=== PATIENT | male | born 1960 ===

== ENCOUNTER 2020-04-20 12:53 | Outpatient (REF) | payer OTHER, SELFPAY ==
--- NOTE | ~2020-04-20 | XR_ITS ---
EXAMINATION: XR SHOULDER, RIGHT CLINICAL INFORMATION: Shoulder pain. COMPARISON: None TECHNIQUE: AP external rotation, Grashey, scapular Y, and axillary views of the right shoulder. FINDINGS: No acute fracture or dislocation. Glenohumeral and acromioclavicular alignment is anatomic with normal joint space. No abnormal soft tissue calcifications. XR/XR shoulder RT min 2V IMPRESSION: No acute osseous abnormality.
--- NOTE | ~2020-04-20 | XR_ITS ---
EXAMINATION: XR HIP, RIGHT CLINICAL INFORMATION: Right hip pain. COMPARISON: 12/13/2013 TECHNIQUE: Two views of the right hip. FINDINGS: No acute fracture. Alignment is anatomic. Hip joint space is maintained. Small ossicle adjacent to the acetabulum. Visualized pelvis is intact. XR/XR hip RT min 2V IMPRESSION: No acute osseous abnormality.
[2020-04-20 13:48] LABS: MANUAL DIFF FLAG NO
[2020-04-20 13:58] LABS: Basophils Absolute Auto 0.1 X10*3/uL (0.0-0.2); Basophils Percent Auto 0.6 % (0-2); Eosinophils Absolute Auto 0.5 X10*3/uL (0.0-0.4); Hematocrit 42.5 % (42-52); Hemoglobin 14.2 g/dl (14.0-18.0); Imm Gran Abs Auto 0.01 X10*3/uL (0.00-0.03); Imm Gran Pct Auto 0.1 % (0.0-0.4); Lymphocytes Percent Auto 33.3 % (20-40); Mean Corpuscular HGB Conc 33.4 g/dl (31.0-36.0); Mean Corpuscular Hemoglobin 27.9 pg (27.0-33.0); Mean Corpuscular Volume 83.5 fL (80-98); Mean Platelet Volume 10.6 fL (9.4-12.4); Monocytes Absolute Auto 0.7 X10*3/uL (0.1-1.2); Monocytes Percent Auto 7.3 % (2-11); Neutrophils Absolute Auto 4.7 X10*3/uL (2.0-8.3); Neutrophils Percent Auto 52.7 % (45-73); Platelet Count 281 X10*3/uL (160-400); Red Blood Count 5.09 X10*6/uL (4.60-5.80); Red Cell Distribution Width 13.2 % (11.0-16.0); White Blood Count 8.9 X10*3/uL (4.8-10.8)
[2020-04-20 14:02] LABS: Estimated Average Glucose 120 mg/dL; Hemoglobin A1C 149.6131 umol/L; Hemoglobin A1c % 5.8 %
[2020-04-20 14:23] LABS: Alanine Aminotransferase 27 U/L (0-40); Albumin Level 4.2 g/dL (3.5-5.0); Alkaline Phosphatase 57 U/L (39-117); Anion Gap 12 (12-20); Aspartate Amino Transferase 21 U/L (5-37); Bilirubin Total 0.5 mg/dL (0.0-1.0); Blood Urea Nitrogen 21 mg/dL (9-16); Calcium 9.7 mg/dL (8.4-10.2); Carbon Dioxide 28 mmol/L (22-29); Chloride 105 mmol/L (96-108); Cholesterol 178 mg/dL; Estimated Glomerular Filt Rate > 60; Glucose Fasting 106 mg/dL (60-99); HDL Cholesterol 36 mg/dL; LDL Cholesterol Calculated 103 mg/dl; Potassium 4.7 mmol/L (3.3-5.1); Sodium 140 mmol/L (135-145); Total Protein 7.3 g/dL (6.5-8.0); Triglycerides 196 mg/dL
[2020-04-20 14:34] LABS: Glucose Urine UA NEG (NEG); Leukocyte Esterase Urine NEG (NEG); Nitrite Urine NEG (NEG); PH 5.5 (5.0-8.0); Urine Blood TRACE (NEG); Urine Ketones NEG (NEG); Urine Protein NEG (NEG-TRACE)
[2020-04-20 14:36] LABS: Vitamin D 25-OH Total 45.9 ng/mL (>30)
[2020-04-20 14:37] LABS: Appearance Urine CLEAR; Color Urine YELLOW
[2020-04-20 14:58] LABS: Amorphous Sediment Urine TRACE /LPF; RBC Urine 0 /HPF (0); WBC Urine 0 /HPF (0-4)
[2020-04-20 15:25] LABS: Creatinine Urine 101.76 mg/dL; Microalbumin Urine < 5.0 mg/L
[2020-04-25 14:52] LABS: Testosterone, Free 2.4 pg/mL (35.0-155.0); Testosterone, Total 19 ng/dL (250-1100)
== END 2020-04-20 12:54 | disposition home or self-care (01) ==
LOC: HO.LAB 12:53
PROVIDERS: PCP Internal Medicine; Visit Provider Internal Medicine
DX: E11.9 Type 2 diabetes mellitus without complications (principal); E78.5 Hyperlipidemia, unspecified; N20.0 Calculus of kidney; L29.9 Pruritus, unspecified; F17.290 Nicotine dependence, other tobacco product, uncomplicated; E29.1 Testicular hypofunction; E55.9 Vitamin D deficiency, unspecified; M25.511 Pain in right shoulder; Z20.822 Contact with and (suspected) exposure to COVID-19
CPT/HCPCS: 36415; 73030; 73502; 80053; 80061; 81001; 82043; 82306; 83036; 84402; 84403; 85025; U0003; U0005

== ENCOUNTER 2020-07-04 16:52 | Outpatient (REF) | payer OTHER, SELFPAY ==
--- NOTE | ~2020-07-04 | XR_ITS ---
EXAMINATION: XR HAND, LEFT CLINICAL INFORMATION: Pain COMPARISON: October 07, 2018 and March 30, 2015 TECHNIQUE: PA, lateral, and oblique views of the left hand. FINDINGS: There is no evidence of acute fracture or dislocation of the left hand. No significant erosive changes are appreciated. Joint spaces are generally maintained. No radiopaque foreign bodies. XR/XR hand LT min 3V IMPRESSION: No significant bony abnormality of the left hand.
== END 2020-07-04 16:53 | disposition home or self-care (01) ==
LOC: HO.XRAY 16:52
PROVIDERS: PCP Internal Medicine; Visit Provider Internal Medicine
DX: M79.89 Other specified soft tissue disorders (principal); M79.642 Pain in left hand
CPT/HCPCS: 73130

== ENCOUNTER 2020-11-14 11:43 | Outpatient (REF) | payer OTHER, SELFPAY ==
[2020-11-14 12:16] LABS: MANUAL DIFF FLAG NO
[2020-11-14 12:25] LABS: Appearance Urine CLEAR; Color Urine YELLOW; Glucose Urine UA NEG (NEG); Leukocyte Esterase Urine NEG (NEG); Nitrite Urine NEG (NEG); UACC Culture Trigger NO; Urine Blood TRACE (NEG); Urine Ketones NEG (NEG); Urine Protein NEG (NEG-TRACE)
[2020-11-14 12:31] LABS: Estimated Average Glucose 131 mg/dL; Hemoglobin A1c % 6.2 %
[2020-11-14 12:32] LABS: Basophils Percent Auto 0.3 % (0-2); Eosinophils Absolute Auto 0.7 X10*3/uL (0.0-0.4); Eosinophils Percent Auto 7.2 % (0-4); Hematocrit 43.8 % (42-52); Hemoglobin 14.8 g/dl (14.0-18.0); Imm Gran Abs Auto 0.03 X10*3/uL (0.00-0.03); Imm Gran Pct Auto 0.3 % (0.0-0.4); Lymphocytes Absolute Auto 3.4 X10*3/uL (1.2-4.9); Lymphocytes Percent Auto 36.1 % (20-40); Mean Corpuscular HGB Conc 33.8 g/dl (31.0-36.0); Mean Corpuscular Hemoglobin 27.6 pg (27.0-33.0); Mean Corpuscular Volume 81.6 fL (80-98); Mean Platelet Volume 10.7 fL (9.4-12.4); Monocytes Absolute Auto 0.6 X10*3/uL (0.1-1.2); Monocytes Percent Auto 6.6 % (2-11); Neutrophils Absolute Auto 4.6 X10*3/uL (2.0-8.3); Neutrophils Percent Auto 49.5 % (45-73); Platelet Count 254 X10*3/uL (160-400); Red Blood Count 5.37 X10*6/uL (4.60-5.80); Red Cell Distribution Width 13.7 % (11.0-16.0); White Blood Count 9.3 X10*3/uL (4.8-10.8)
[2020-11-14 12:45] LABS: Alanine Aminotransferase 35 U/L (0-40); Alkaline Phosphatase 53 U/L (39-117); Anion Gap 10 (12-20); Aspartate Amino Transferase 23 U/L (5-37); Bilirubin Total 0.5 mg/dL (0.0-1.0); Blood Urea Nitrogen 17 mg/dL (9-16); Calcium 9.3 mg/dL (8.4-10.2); Carbon Dioxide 25 mmol/L (22-29); Chloride 108 mmol/L (96-108); Cholesterol 158 mg/dL; Estimated Glomerular Filt Rate > 60; Glucose Fasting 118 mg/dL (60-99); HDL Cholesterol 33 mg/dL; LDL Cholesterol Calculated 92 mg/dl; Potassium 4.2 mmol/L (3.3-5.1); Sodium 139 mmol/L (135-145); Triglycerides 165 mg/dL
[2020-11-14 12:53] LABS: Mucus Urine TRACE /LPF; Squamous Epithelial Cell Urine TRACE /LPF; WBC Urine 0-2 /HPF (0-4)
[2020-11-14 13:08] LABS: TSH reflex Free T4 2.66 uIU/mL (0.32-4.0); Vitamin D 25-OH Total 41.4 ng/mL (>30)
[2020-11-14 13:52] LABS: Erythrocyte Sedimentation Rate 7 MM/HR (0-15)
[2020-11-20 15:46] LABS: Testosterone, Total 51 ng/dL (250-1100)
== END 2020-11-14 11:44 | disposition home or self-care (01) ==
LOC: HO.LAB 11:43
PROVIDERS: PCP Internal Medicine; Visit Provider Internal Medicine
DX: E11.9 Type 2 diabetes mellitus without complications (principal); N20.0 Calculus of kidney; F17.290 Nicotine dependence, other tobacco product, uncomplicated; J30.9 Allergic rhinitis, unspecified; E78.2 Mixed hyperlipidemia; E34.9 Endocrine disorder, unspecified; M79.642 Pain in left hand; M79.89 Other specified soft tissue disorders; E55.9 Vitamin D deficiency, unspecified
CPT/HCPCS: 36415; 80053; 80061; 81001; 82306; 83036; 84402; 84403; 84443; 85025; 85652

== ENCOUNTER 2020-12-29 08:49 | Day surgery (SDC) | payer OTHER, SELFPAY ==
[2020-12-25 09:13] VITALS: BMI 24.7
--- NOTE | 2020-12-27 15:41 | P.CONAN_ITS ---
Documented by User: Valerie Christianson NP 12/27/20 15:43 HPI - Anesthesia Eval Consult details Narrative: 60yo M for Colonoscopy *Multiple Med Allergies PMFSH Active Problems Active Problems: All Active Problems (Updated 12/25/20 @ 09:03 by Anusha Fletcher RN) Colon cancer screening (Acute) Cigar smoker (Acute) Anxiety (Acute) Vitamin D deficiency (Acute) Renal calculi (Acute) Allergic rhinitis (Acute) Mixed dyslipidemia (Acute) Diabetes mellitus (Acute) Right hip pain (Acute) Right shoulder pain (Acute) Hypotestosteronism (Acute) Swelling of left hand (Acute) Left hand pain (Acute) Past Medical History Medical History Allergic rhinitis Anxiety Arthritis Cigar smoker Diabetes mellitus Hx of flexible sigmoidoscopy Hypotestosteronism IBS (irritable bowel syndrome) Left hand pain Mixed dyslipidemia Renal calculi Right hip pain Right shoulder pain Swelling of left hand Vitamin D deficiency Family History Family History Father Prostate cancer Mother Hypertension Hypercholesterolemia Brother Hypertension Diabetes Surgical History Surgical History History of colonoscopy History of lithotripsy History of testicular surgery Hx laparoscopic cholecystectomy Hx of cystoscopy Social History Social History (Updated 12/29/20 @ 11:20 by Marisela Andujar MD) Housing: Apartment Alcohol intake: never Patient Tobacco Use Status: Current everyday Tobacco user Tobacco use type: Cigarette Cigarettes Per Day: 2 Smoked in Last 30 Days: Yes Second Hand Smoke Exposure: Yes Advance Directives: Yes Advance Directives Information Provided: Yes Advance Directives on File: Yes Advance Directives Date on File: 11/07/14 service: No Current occupational status: disabled Meds Allergies Allergy/AdvReac Type Severity Reaction Status Date / Time Iodinated Contrast Media Allergy Severe ANAPHYLAXIS Verified 11/03/20 16:53 [IV Dye, Iodine Containing] aspirin [Aspirin] Allergy Mild ITCHING Verified 11/03/20 16:53 ibuprofen [Ibuprofen] Allergy Mild NAUSEA Verified 11/03/20 16:53 Penicillins Allergy Mild ITCHING/SWE Verified 11/03/20 16:53 LLING Gadolinium-Containing Allergy Unknown UNKNOWN Verified 11/03/20 16:53 Contrast Medi [GADOLINIUM-CONTAINING CONTRAST] iodine [IODINE] Allergy Unknown UNKNOWN Verified 11/03/20 16:53 morphine [MORPHINE] Allergy Unknown TACHYCARDIA Verified 11/03/20 16:53 oxycodone [From PERCOCET] Allergy Unknown N/V,H/A Verified 11/03/20 16:53 Sulfa (Sulfonamide Allergy Unknown UNKNOWN Verified 11/03/20 16:53 Antibiotics) [SULFA (SULFONAMIDE ANTIBIOTICS)] Home Medications Medication Instructions Recorded Confirmed Last Taken Type blood sugar diagnostic #10 ea 05/05/20 11/03/20 Unknown History clonazepam 1 mg tablet 1 mg PO BID PRN 12/25/20 12/25/20 Unknown History Exam Exam Date and Time: December 27, 2020 1541 Height,Weight and Vital Signs: Height 5 ft 6 in Weight 69.4 kg Pertinent Lab Results Pertinent Lab Results: Laboratory Tests 11/14/20 11/14/20 11:50 11:50 WBC 9.3 Hgb 14.8 Hct 43.8 Plt Count 254 Sodium 139 Potassium 4.2 Chloride 108 Carbon Dioxide 25 BUN 17 H Creatinine 1.04 Assessment and Plan Assessment Anesthesia Assessment: Chart Reviewed Documented by User: Marisela Andujar MD 12/29/20 11:21 [facility] Past Medical History Medical History Allergic rhinitis Anxiety Arthritis Cigar smoker Diabetes mellitus Hx of flexible sigmoidoscopy Hypotestosteronism IBS (irritable bowel syndrome) Left hand pain Mixed dyslipidemia Renal calculi Right hip pain Right shoulder pain Swelling of left hand Vitamin D deficiency Family History Family History Father Prostate cancer Mother Hypertension Hypercholesterolemia Brother Hypertension Diabetes Family history of problems with anesthesia: No Surgical History Surgical History History of colonoscopy History of lithotripsy History of testicular surgery Hx laparoscopic cholecystectomy Hx of cystoscopy History of Problems with Anesthesia: No Social History Social History (Updated 12/29/20 @ 11:20 by Marisela Andujar MD) Housing: Apartment Alcohol intake: never Patient Tobacco Use Status: Current everyday Tobacco user Tobacco use type: Cigarette Cigarettes Per Day: 2 Smoked in Last 30 Days: Yes Second Hand Smoke Exposure: Yes Advance Directives: Yes Advance Directives Information Provided: Yes Advance Directives on File: Yes Advance Directives Date on File: 11/07/14 service: No Current occupational status: disabled Meds Allergies Allergy/AdvReac Type Severity Reaction Status Date / Time Iodinated Contrast Media Allergy Severe ANAPHYLAXIS Verified 11/03/20 16:53 [IV Dye, Iodine Containing] aspirin [Aspirin] Allergy Mild ITCHING Verified 11/03/20 16:53 ibuprofen [Ibuprofen] Allergy Mild NAUSEA Verified 11/03/20 16:53 Penicillins Allergy Mild ITCHING/SWE Verified 11/03/20 16:53 LLING Gadolinium-Containing Allergy Unknown UNKNOWN Verified 11/03/20 16:53 Contrast Medi [GADOLINIUM-CONTAINING CONTRAST] iodine [IODINE] Allergy Unknown UNKNOWN Verified 11/03/20 16:53 morphine [MORPHINE] Allergy Unknown TACHYCARDIA Verified 11/03/20 16:53 oxycodone [From PERCOCET] Allergy Unknown N/V,H/A Verified 11/03/20 16:53 Sulfa (Sulfonamide Allergy Unknown UNKNOWN Verified 11/03/20 16:53 Antibiotics) [SULFA (SULFONAMIDE ANTIBIOTICS)] Home Medications Medication Instructions Recorded Confirmed Last Taken Type blood sugar diagnostic #10 ea 05/05/20 11/03/20 Unknown History clonazepam 1 mg tablet 1 mg PO BID PRN 12/25/20 12/25/20 Unknown History Exam Height,Weight and Vital Signs: Height 5 ft 6 in Weight 69.4 kg Vital Signs Temp Pulse Resp BP Pulse Ox 12/29/20 08:55 97 F 82 18 121/72 98 Pertinent Lab Results Pertinent Lab Results: Laboratory Tests 11/14/20 11/14/20 11:50 11:50 WBC 9.3 Hgb 14.8 Hct 43.8 Plt Count 254 Sodium 139 Potassium 4.2 Chloride 108 Carbon Dioxide 25 BUN 17 H Creatinine 1.04 Lab Results 12/29/20 Range/Units 09:11 POC Glucose 113 (60-115) mg/dL Airway Mallampati Class: III TM Dist: >3cm Neck ROM: Full Loose/Missing/Broken Teeth: Yes (Some missing) Heart: RRR Lungs: CTAB Assessment and Plan Assessment Anesthesia Assessment: Anesthesia Plan Discussed Final Anesthetic Review Family History of Problems with Anesthesia: No History of Problems with Anesthesia: No NPO: Yes ASA Class: II Final Preanesthetic Review: No Changes in Pt Med Stat, Meds/Allgs Chart Reviewed, Consent Obtained/Reviewed and Anes Risks/Benef Reviewed Patient Risk: Low Procedure Risk: Low Assessment/Block/Sedation in SS: Assess/Block/Sedation-SS Anesthetic Plan Anesthetic Plan: MAC: Disposition: Standard PACU
[2020-12-29 08:55] VITALS: BP 121/72; PULSE 82; RESP 18; TEMP 36.1; O2SAT 98
[2020-12-29 09:17] LABS: Glucose, Whole Blood 113 mg/dL (60-115)
[2020-12-29] MEDS: Lactated Ringers 1,000 ML 100 ML IVCONT (09:19)
[2020-12-29 11:49] VITALS: BP 86/52; PULSE 76; RESP 16; TEMP 36.8; O2SAT 95
--- NOTE | 2020-12-29 11:50 | PM.OP ---
Brief Operative Note Date of Service: 12/29/20 Pre-op diagnosis: Screeening Post-op diagnosis: other (Colon polyp) Procedure: Colonoscopy to the cecum with cold snare polypectomy Surgeon: Onesimo Nogueira Anesthesia: MAC Was an Division Merchandise Manager used for this Procedure?: No Estimated blood loss (mL): 3.0 Pathology: other (A. Polyp at 60cm) Condition: stable Disposition: PACU
[2020-12-29 12:04] VITALS: BP 122/79; PULSE 76; RESP 16; TEMP 36.8; O2SAT 96
--- NOTE | 2020-12-29 12:09 | OP_ITS ---
SURGEON: Onesimo Nogueira MD INDICATIONS: The patient presents for evaluation of colorectal cancer screening. Full consent was obtained from him for this, including risks of bleeding and perforation. PREOPERATIVE DIAGNOSIS: Colorectal cancer screening. POSTOPERATIVE DIAGNOSIS: Colorectal cancer screening, small colon polyp, diverticulosis and internal hemorrhoids. PROCEDURE PERFORMED: Colonoscopy to the cecum with snare polypectomy. ESTIMATED BLOOD LOSS: COMPLICATIONS: ANESTHESIA: ASSISTANTS: SPECIMENS: PREOP MEDICATION USED: Monitored anesthesia care. DESCRIPTION OF PROCEDURE: The patient was placed in the left lateral decubitus position. The digital rectal exam revealed no abnormalities. The Olympus video pediatric colonoscope was entered into the rectum and advanced easily to the cecum. Once in the cecum, I identified normal-appearing cecal pouch with appendiceal orifice, a normal-appearing ileocecal valve. The entire cecum and ileocecal valve appeared normal. There was transillumination of light deep in the right lower quadrant. The scope was slowly withdrawn assessing all mucosal surfaces carefully. Preparation was excellent. At 60 cm, was an approximately 5 or 6 mm slightly raised probable hyperplastic polyp, which was snared and removed with the cold snare. There was no sign of any residual polyp nor significant bleeding. The polyp was recovered by suction. I did not visualize any other polyps, colitis, nor angiodysplasia. There was a mild amount of sigmoid diverticulosis. In the rectum, scope was retroflexed visualizing small internal hemorrhoids, but no other pathology. The rectal mucosa appeared normal. The scope was straightened out and withdrawn from the patient. He tolerated the procedure well and was returned to the recovery area in stable condition. IMPRESSION: 1. Small colon polyp, status post snare polypectomy with a cold snare. 2. Diverticulosis. 3. Internal hemorrhoids. PLAN: The results of the pathology will be checked. If this is a tubular adenoma, I would recommend a followup colonoscopy in 5 years. If it is only hyperplastic, I would recommend a followup colonoscopy in 10 years. He will otherwise see me on a p.r.n. basis. This has been discussed with his . MD LORIE Garsia/LALITA / [id number]
== END 2020-12-29 12:56 | disposition home or self-care (01) ==
PROVIDERS: PCP Internal Medicine; Visit Provider Internal Medicine
PROC: 0DJD8ZZ Inspection of Lower Intestinal Tract, Via Natural or Artificial Opening Endoscopic (ICD-10-PCS; CPT 45378; principal; 2020-12-29 10:10)
DX: Z12.11 Encounter for screening for malignant neoplasm of colon (principal); K62.89 Other specified diseases of anus and rectum; K63.5 Polyp of colon; K57.30 Diverticulosis of large intestine without perforation or abscess without bleeding; K64.8 Other hemorrhoids; K58.9 Irritable bowel syndrome, unspecified; E11.9 Type 2 diabetes mellitus without complications; E55.9 Vitamin D deficiency, unspecified; E78.5 Hyperlipidemia, unspecified; Z79.84 Long term (current) use of oral hypoglycemic drugs; Z79.899 Other long term (current) drug therapy; Z90.49 Acquired absence of other specified parts of digestive tract
CPT/HCPCS: 45385; 82947; 88305

== ENCOUNTER → 2021-01-17 09:00 | Outpatient (BNVA) | payer OTHER, SELFPAY | PROVIDERS: PCP Internal Medicine; Visit Provider Urology | DX: N20.0 Calculus of kidney (principal); N48.0 Leukoplakia of penis; E34.9 Endocrine disorder, unspecified | CPT/HCPCS: 99212 ==

== ENCOUNTER 2021-05-18 11:18 | Outpatient (REF) | payer OTHER, SELFPAY ==
[2021-05-18 11:55] LABS: MANUAL DIFF FLAG NO
[2021-05-18 13:16] LABS: Basophils Percent Auto 0.4 % (0-2); Eosinophils Absolute Auto 0.7 X10*3/uL (0.0-0.4); Eosinophils Percent Auto 6.4 % (0-4); Hematocrit 50.6 % (42.0-52.0); Hemoglobin 16.8 g/dl (14.0-18.0); Imm Gran Abs Auto 0.03 X10*3/uL (0.00-0.03); Imm Gran Pct Auto 0.3 % (0.0-0.4); Lymphocytes Absolute Auto 3.1 X10*3/uL (1.2-4.9); Lymphocytes Percent Auto 28.2 % (20-40); Mean Corpuscular HGB Conc 33.2 g/dl (31.0-36.0); Mean Corpuscular Hemoglobin 28.5 pg (27.0-33.0); Mean Corpuscular Volume 85.8 fL (80.0-98.0); Mean Platelet Volume 11.6 fL (9.4-12.4); Monocytes Absolute Auto 0.8 X10*3/uL (0.1-1.2); Monocytes Percent Auto 7.3 % (2-11); Neutrophils Absolute Auto 6.3 x10*3/uL (2.0-8.3); Neutrophils Percent Auto 57.4 % (45-73); Platelet Count 285 X10*3/uL (160-400); Red Cell Distribution Width 14.2 % (11.0-16.0)
[2021-05-18 13:36] LABS: Appearance Urine CLEAR; Color Urine YELLOW; Glucose Urine UA NEG (NEG); Leukocyte Esterase Urine NEG (NEG); Nitrite Urine NEG (NEG); Specific Gravity - Urine 1.015 (1.005-1.025); Urine Blood NEG (NEG); Urine Ketones NEG (NEG); Urine Protein NEG (NEG-TRACE)
[2021-05-18 13:38] LABS: Alanine Aminotransferase 29 U/L (0-40); Albumin Level 4.2 g/dL (3.5-5.0); Alkaline Phosphatase 48 U/L (39-117); Anion Gap 14 (12-20); Aspartate Amino Transferase 24 U/L (5-37); Bilirubin Total 0.6 mg/dL (0.0-1.0); Blood Urea Nitrogen 16 mg/dL (9-16); Calcium 9.5 mg/dL (8.4-10.2); Carbon Dioxide 27 mmol/L (22-29); Chloride 103 mmol/L (96-108); Cholesterol 163 mg/dL; Estimated Glomerular Filt Rate > 60; Glucose Fasting 92 mg/dL (60-99); HDL Cholesterol 29 mg/dL; LDL Cholesterol Calculated 97 mg/dl; Potassium 4.6 mmol/L (3.3-5.1); Sodium 139 mmol/L (135-145); Total Protein 7.4 g/dL (6.5-8.0); Triglycerides 188 mg/dL
[2021-05-18 13:59] LABS: TSH reflex Free T4 3.17 uIU/mL (0.32-4.0); Vitamin D 25-OH Total 54.3 ng/mL (>30)
[2021-05-24 15:52] LABS: Testosterone, Free 181.1 pg/mL (35.0-155.0); Testosterone, Total 1047 ng/dL (250-1100)
== END 2021-05-18 11:19 | disposition home or self-care (01) ==
LOC: HO.LAB 11:18
PROVIDERS: PCP Internal Medicine; Visit Provider Internal Medicine
DX: J30.9 Allergic rhinitis, unspecified (principal); E78.00 Pure hypercholesterolemia, unspecified; I10 Essential (primary) hypertension; E55.9 Vitamin D deficiency, unspecified; E29.1 Testicular hypofunction
CPT/HCPCS: 36415; 80053; 80061; 81003; 82306; 84402; 84403; 84443; 85025

== ENCOUNTER 2021-08-22 09:34 | Outpatient (REF) | payer OTHER, SELFPAY ==
[2021-08-22 09:51] LABS: MANUAL DIFF FLAG NO
[2021-08-22 10:33] LABS: Basophils Absolute Auto 0.1 X10*3/uL (0.0-0.2); Basophils Percent Auto 0.5 % (0-2); Eosinophils Absolute Auto 0.7 X10*3/uL (0.0-0.4); Eosinophils Percent Auto 5.4 % (0-4); Hematocrit 48.1 % (42.0-52.0); Hemoglobin 16.6 g/dl (14.0-18.0); Imm Gran Abs Auto 0.06 X10*3/uL (0.00-0.03); Imm Gran Pct Auto 0.5 % (0.0-0.4); Lymphocytes Absolute Auto 3.7 X10*3/uL (1.2-4.9); Lymphocytes Percent Auto 29.5 % (20-40); Mean Corpuscular HGB Conc 34.5 g/dl (31.0-36.0); Mean Corpuscular Hemoglobin 28.3 pg (27.0-33.0); Mean Corpuscular Volume 82.1 fL (80.0-98.0); Mean Platelet Volume 10.9 fL (9.4-12.4); Monocytes Absolute Auto 0.8 X10*3/uL (0.1-1.2); Monocytes Percent Auto 6.3 % (2-11); Neutrophils Absolute Auto 7.3 x10*3/uL (2.0-8.3); Neutrophils Percent Auto 57.8 % (45-73); Platelet Count 315 X10*3/uL (160-400); Red Blood Count 5.86 X10*6/uL (4.60-5.80); Red Cell Distribution Width 14.7 % (11.0-16.0); White Blood Count 12.5 X10*3/uL (4.8-10.8)
[2021-08-22 10:42] LABS: Appearance Urine CLEAR; Color Urine YELLOW; Glucose Urine UA NEG (NEG); Leukocyte Esterase Urine NEG (NEG); Nitrite Urine NEG (NEG); UACC Culture Trigger NO; Urine Blood TRACE (NEG); Urine Ketones NEG (NEG); Urine Protein NEG (NEG-TRACE)
[2021-08-22 10:44] LABS: Estimated Average Glucose 117 mg/dL; Hemoglobin A1c % 5.7 %
[2021-08-22 10:52] LABS: Squamous Epithelial Cell Urine 1+ /LPF; WBC Urine 0-2 /HPF (0-4)
[2021-08-22 11:04] LABS: Microalbum/Creatinine Ratio Ur 4.1 ug/mg cr
[2021-08-22 11:13] LABS: Alanine Aminotransferase 24 U/L (0-40); Alkaline Phosphatase 45 U/L (39-117); Anion Gap 14 (12-20); Aspartate Amino Transferase 22 U/L (5-37); Bilirubin Total 0.3 mg/dL (0.0-1.0); Blood Urea Nitrogen 15 mg/dL (9-16); Calcium 9.1 mg/dL (8.4-10.2); Carbon Dioxide 24 mmol/L (22-29); Chloride 103 mmol/L (96-108); Cholesterol 161 mg/dL; Estimated Glomerular Filt Rate > 60; Glucose Fasting 114 mg/dL (60-99); HDL Cholesterol 30 mg/dL; LDL Cholesterol Calculated 97 mg/dl; Potassium 4.1 mmol/L (3.3-5.1); Sodium 137 mmol/L (135-145); Total Protein 7.3 g/dL (6.5-8.0); Triglycerides 172 mg/dL
[2021-08-22 11:23] LABS: Vitamin D 25-OH Total 54.8 ng/mL (>30)
== END 2021-08-22 09:35 | disposition home or self-care (01) ==
LOC: HO.LAB 09:34
PROVIDERS: Visit Provider Internal Medicine
DX: I10 Essential (primary) hypertension (principal); E11.9 Type 2 diabetes mellitus without complications; E78.00 Pure hypercholesterolemia, unspecified; E55.9 Vitamin D deficiency, unspecified
CPT/HCPCS: 36415; 80053; 80061; 81001; 82043; 82306; 83036; 84443; 85025

== ENCOUNTER 2022-01-02 16:11 | Outpatient (REF) | payer OTHER, SELFPAY ==
--- NOTE | ~2022-01-02 | XR_ITS ---
EXAMINATION: XR CHEST CLINICAL INFORMATION: Chest pain COMPARISON: None TECHNIQUE: 2 views of the chest were obtained. FINDINGS: The cardiac silhouette does not appear enlarged. Mediastinal contours are unremarkable. There are increased central hilar markings. The lungs are otherwise clear. No pleural effusion. Bony structures are normal. XR/XR chest 2V IMPRESSION: Increased central hilar markings. Differential would include pulmonary venous redistribution/mild pulmonary edema, airways disease, atypical interstitial pneumonia and interstitial lung disease. Clinical correlation recommended.
== END 2022-01-02 16:12 | disposition home or self-care (01) ==
LOC: HO.XRAY 16:11
PROVIDERS: Visit Provider Internal Medicine
DX: R07.9 Chest pain, unspecified (principal); J30.9 Allergic rhinitis, unspecified; F17.290 Nicotine dependence, other tobacco product, uncomplicated
CPT/HCPCS: 71046; 99202

== ENCOUNTER 2022-02-01 15:41 | Outpatient (REF) | payer OTHER, SELFPAY ==
--- NOTE | 2022-02-01 17:43 | PFT_ITS ---
Forced vital capacity 74%, FEV1 83%, FEV1/FVC ratio 86. FQS19-54 111% and MVV 76%. Post bronchodilator therapy, there is no significant change. Total lung capacity 72% and residual volume 73%. Diffusion capacity is 78%. CONCLUSION: Mild restrictive pulmonary disorder. No obstructive airway disorder and no response to bronchodilator therapy. Clinical correlation is recommended. MD FRANCISCO Briscoe/MODL / [id number]
== END 2022-02-01 15:42 | disposition home or self-care (01) ==
LOC: HO.RESP 15:41
PROVIDERS: PCP Internal Medicine; Visit Provider Internal Medicine
DX: R07.9 Chest pain, unspecified (principal); F17.290 Nicotine dependence, other tobacco product, uncomplicated
CPT/HCPCS: 94060; 94727; 94729

== ENCOUNTER → 2022-02-05 15:53 | Outpatient (BNVA) | payer OTHER, SELFPAY | PROVIDERS: PCP Internal Medicine; Visit Provider Internal Medicine | DX: J30.9 Allergic rhinitis, unspecified (principal); R93.89 Abnormal findings on diagnostic imaging of other specified body structures; F17.290 Nicotine dependence, other tobacco product, uncomplicated | CPT/HCPCS: 99212 ==

== ENCOUNTER 2022-02-19 12:51 | Outpatient (REF) | payer OTHER, SELFPAY ==
[2022-02-19 13:42] LABS: Appearance Urine Clear; Color Urine Yellow; Glucose Urine UA Negative (Negative); Leukocyte Esterase Urine Negative (Negative); Nitrite Urine Negative (Negative); PH 5.5 (5.0-9.0); Specific Gravity - Urine 1.015 (1.005-1.025); Urine Blood Negative (Negative); Urine Ketones Negative (Negative); Urine Protein Negative (Neg-Trace)
[2022-02-19 14:10] LABS: Estimated Average Glucose 117 mg/dL; Hemoglobin A1c % 5.7 %
[2022-02-19 15:24] LABS: Creatinine Urine 114.85 mg/dL; Microalbumin Urine < 5.0 mg/L
[2022-02-19 15:45] LABS: Alanine Aminotransferase 41 U/L (0-40); Albumin Level 4.1 g/dL (3.5-5.0); Alkaline Phosphatase 47 U/L (39-117); Anion Gap 13 (12-20); Aspartate Amino Transferase 29 U/L (5-37); Bilirubin Total 0.4 mg/dL (0.0-1.0); Blood Urea Nitrogen 24 mg/dL (9-16); Calcium 9.9 mg/dL (8.4-10.2); Carbon Dioxide 27 mmol/L (22-29); Chloride 103 mmol/L (96-108); Cholesterol 177 mg/dL; Estimated Glomerular Filt Rate > 60; Glucose Fasting 140 mg/dL (60-99); HDL Cholesterol 33 mg/dL; LDL Cholesterol Calculated 108 mg/dl; Potassium 4.3 mmol/L (3.3-5.1); Sodium 139 mmol/L (135-145); Total Protein 7.3 g/dL (6.5-8.0); Triglycerides 181 mg/dL; Vitamin D 25-OH Total 53.2 ng/mL (>30)
== END 2022-02-19 12:52 | disposition home or self-care (01) ==
LOC: HO.LAB 12:51
PROVIDERS: PCP Internal Medicine; Visit Provider Internal Medicine
DX: E78.00 Pure hypercholesterolemia, unspecified (principal); E11.9 Type 2 diabetes mellitus without complications; E55.9 Vitamin D deficiency, unspecified; I10 Essential (primary) hypertension
CPT/HCPCS: 36415; 80053; 80061; 81003; 82043; 82306; 83036

== ENCOUNTER 2022-02-27 15:08 | Outpatient (REF) | payer OTHER, SELFPAY ==
--- NOTE | ~2022-02-27 | CT_ITS ---
EXAMINATION: CT CHEST WITHOUT CONTRAST. HIGH-RESOLUTION CLINICAL INFORMATION: Nicotine dependence COMPARISON: Chest x-ray 01/02/2022 TECHNIQUE: 2 mm thin axial and reformatted 3 mm thin sagittal coronal images of chest were obtained. DLP: 195 mGy-cm This CT examination was performed using dose optimization technique as appropriate, variously including the following: Automated exposure control Adjustment of MA and/or KV according to patient size(this includes techniques or standardized protocols for targeted exams where dose is matched to indication/reason for exam; extremities or head. Use of iterative reconstruction techniques. FINDINGS: LUNGS: The lungs are hyperinflated with diffuse interstitial intralobular and interlobular thickening. There are subpleural-based patchy ground-glass opacities in both upper lobes and lower lobes. There is bilateral apical parenchymal scarring and pleural thickening. Few nodular densities are seen in bilateral upper lobes measuring 4 mm on axial image 39/6, a 4 mm calcified nodule is seen along the right major fissure axial image 101/6. Focal atelectatic changes are seen in both lung bases subpleural base. There is no bronchiectasis or bronchial wall thickening. No evidence of larger mass. MEDIASTINUM: The thyroid lobes are symmetrical and normal. The central trachea and bronchi are widely patent. Small shotty lymph nodes are seen in the mediastinum. Heart size and the great vessels are normal caliber. No pericardial effusion seen. There is trace coronary artery calcifications present. PLEURA: There is no pleural thickening, calcification or effusion. AXILLA: Small shotty lymph nodes are seen in bilateral axilla. The chest wall is unremarkable. ABDOMEN: Visualized liver, spleen, pancreas and bilateral adrenal glands are unremarkable. The gallbladder has been surgically removed. OSSEOUS STRUCTURES: No aggressive lytic or sclerotic process seen. There is mild ventral spondylosis, upper dorsal spine. CT/CT chest wo con - High Res IMPRESSION: Hyperinflated lungs with bilateral apical pleural thickening parenchymal scarring. There is diffuse intralobular and interlobular interstitial thickening with patchy ground-glass densities in both upper and lower lobes, all suggestive of diffuse chronic interstitial lung changes.
== END 2022-02-27 15:09 | disposition home or self-care (01) ==
LOC: HO.CT 15:08
PROVIDERS: PCP Internal Medicine; Visit Provider Internal Medicine
DX: R93.89 Abnormal findings on diagnostic imaging of other specified body structures (principal); F17.290 Nicotine dependence, other tobacco product, uncomplicated; R07.9 Chest pain, unspecified
CPT/HCPCS: 71250

== ENCOUNTER → 2022-04-08 15:38 | Outpatient (BNVA) | payer OTHER, SELFPAY | PROVIDERS: PCP Internal Medicine; Visit Provider Internal Medicine | DX: J84.9 Interstitial pulmonary disease, unspecified (principal); J30.9 Allergic rhinitis, unspecified; F17.290 Nicotine dependence, other tobacco product, uncomplicated | CPT/HCPCS: 99212 ==

== ENCOUNTER 2022-06-27 09:07 | Outpatient (REF) | payer OTHER, SELFPAY ==
[2022-06-27 09:25] LABS: MANUAL DIFF FLAG NO
[2022-06-27 09:49] LABS: Basophils Percent Auto 0.3 % (0-2); Eosinophils Absolute Auto 0.6 X10*3/uL (0.0-0.4); Eosinophils Percent Auto 6.7 % (0-4); Hematocrit 48.1 % (42.0-52.0); Hemoglobin 16.3 g/dl (14.0-18.0); Imm Gran Abs Auto 0.06 X10*3/uL (0.00-0.03); Imm Gran Pct Auto 0.7 % (0.0-0.4); Lymphocytes Absolute Auto 3.1 X10*3/uL (1.2-4.9); Lymphocytes Percent Auto 33.8 % (20-40); Mean Corpuscular HGB Conc 33.9 g/dl (31.0-36.0); Mean Corpuscular Hemoglobin 29.7 pg (27.0-33.0); Mean Corpuscular Volume 87.8 fL (80.0-98.0); Mean Platelet Volume 10.3 fL (9.4-12.4); Monocytes Absolute Auto 0.8 X10*3/uL (0.1-1.2); Monocytes Percent Auto 8.1 % (2-11); Neutrophils Absolute Auto 4.6 x10*3/uL (2.0-8.3); Neutrophils Percent Auto 50.4 % (45-73); Platelet Count 237 X10*3/uL (160-400); Red Blood Count 5.48 X10*6/uL (4.60-5.80); White Blood Count 9.2 X10*3/uL (4.8-10.8)
[2022-06-27 10:01] LABS: Appearance Urine Clear; Color Urine Yellow; Glucose Urine UA Negative (Negative); Leukocyte Esterase Urine Negative (Negative); Nitrite Urine Negative (Negative); Specific Gravity - Urine 1.015 (1.005-1.025); Urine Blood Negative (Negative); Urine Ketones Negative (Negative); Urine Protein Negative (Neg-Trace)
[2022-06-27 10:02] LABS: Estimated Average Glucose 108 mg/dL; Hemoglobin A1c % 5.4 %
[2022-06-27 10:32] LABS: Alanine Aminotransferase 35 U/L (0-40); Albumin Level 4.1 g/dL (3.5-5.0); Alkaline Phosphatase 39 U/L (39-117); Anion Gap 12 (12-20); Aspartate Amino Transferase 33 U/L (5-37); Bilirubin Total 0.6 mg/dL (0.0-1.0); Blood Urea Nitrogen 19 mg/dL (9-16); Calcium 9.4 mg/dL (8.4-10.2); Carbon Dioxide 25 mmol/L (22-29); Chloride 106 mmol/L (96-108); Cholesterol 152 mg/dL; Estimated Glomerular Filt Rate 59; Glucose Fasting 109 mg/dL (60-99); HDL Cholesterol 23 mg/dL; LDL Cholesterol Calculated 87 mg/dl; Potassium 4.4 mmol/L (3.3-5.1); Sodium 139 mmol/L (135-145); Total Protein 7.1 g/dL (6.5-8.0); Triglycerides 213 mg/dL
[2022-06-27 10:50] LABS: TSH reflex Free T4 1.57 uIU/mL (0.32-4.0)
[2022-06-27 11:17] LABS: Creatinine Urine 167.01 mg/dL; Microalbumin Urine < 5.0 mg/L
[2022-07-09 15:38] LABS: Testosterone, Free 226.1 pg/mL (35.0-155.0); Testosterone, Total 734 ng/dL (250-1100)
== END 2022-06-27 09:08 | disposition home or self-care (01) ==
LOC: HO.LAB 09:07
PROVIDERS: PCP Internal Medicine; Visit Provider Internal Medicine
DX: E11.9 Type 2 diabetes mellitus without complications (principal); R79.89 Other specified abnormal findings of blood chemistry; E78.00 Pure hypercholesterolemia, unspecified; R30.0 Dysuria; E55.9 Vitamin D deficiency, unspecified; I10 Essential (primary) hypertension
CPT/HCPCS: 36415; 80053; 80061; 81003; 82043; 82306; 83036; 84402; 84403; 84443; 85025

== ENCOUNTER 2022-07-08 16:31 | Outpatient (REF) | payer OTHER, SELFPAY ==
--- NOTE | ~2022-07-08 | XR_ITS ---
EXAMINATION: Bilateral hand x-ray CLINICAL INFORMATION: Pain COMPARISON: Previous x-rays from 2019 and 2020 TECHNIQUE: 3 views of each hand FINDINGS: The bones are osteopenic. No fracture or dislocation. Joint spaces are normal. Soft tissues are normal. XR/XR hand RT min 3V IMPRESSION: Bilateral osteopenia.
--- NOTE | ~2022-07-08 | XR_ITS ---
EXAMINATION: XR HIP, RIGHT CLINICAL INFORMATION: Pain COMPARISON: Previous x-ray most recent March 2020 TECHNIQUE: Two views of the right hip. FINDINGS: Bone alignment is normal. No fracture or dislocation. Small ossicle adjacent to the superior lateral hip joint similar to previous exam. The joint spaces otherwise normal. Soft tissues are normal. XR/XR hip RT min 2V IMPRESSION: Small ossicle adjacent to the superior lateral hip joint similar to previous exam.
--- NOTE | ~2022-07-08 | XR_ITS ---
EXAMINATION: Bilateral hand x-ray CLINICAL INFORMATION: Pain COMPARISON: Previous x-rays from 2019 and 2020 TECHNIQUE: 3 views of each hand FINDINGS: The bones are osteopenic. No fracture or dislocation. Joint spaces are normal. Soft tissues are normal. XR/XR hand LT min 3V IMPRESSION: Bilateral osteopenia.
== END 2022-07-08 16:32 | disposition home or self-care (01) ==
LOC: HO.XRAY 16:31
PROVIDERS: PCP Internal Medicine; Visit Provider Internal Medicine
DX: M79.641 Pain in right hand (principal); M79.642 Pain in left hand; M25.551 Pain in right hip
CPT/HCPCS: 73130; 73502

== ENCOUNTER 2022-09-13 16:06 | Outpatient (AMB) | payer OTHER, SELFPAY ==
--- NOTE | 2022-09-13 16:45 | AM.OFFVISNUR ---
Intake Intake Visit Reasons: Testosterone shot Allergies Iodinated Contrast Media [IV Dye, Iodine Containing] Allergy (Severe, Verified 07/08/22 15:44) ANAPHYLAXIS aspirin [Aspirin] Allergy (Mild, Verified 07/08/22 15:44) ITCHING ibuprofen [Ibuprofen] Allergy (Mild, Verified 07/08/22 15:44) NAUSEA Penicillins Allergy (Mild, Verified 07/08/22 15:44) ITCHING/SWELLING Gadolinium-Containing Contrast Medi [GADOLINIUM-CONTAINING CONTRAST] Allergy (Unknown, Verified 07/08/22 15:44) UNKNOWN iodine [IODINE] Allergy (Unknown, Verified 07/08/22 15:44) UNKNOWN morphine [MORPHINE] Allergy (Unknown, Verified 07/08/22 15:44) TACHYCARDIA oxycodone [From PERCOCET] Allergy (Unknown, Verified 07/08/22 15:44) N/V,H/A Sulfa (Sulfonamide Antibiotics) [SULFA (SULFONAMIDE ANTIBIOTICS)] Allergy (Unknown, Verified 07/08/22 15:44) UNKNOWN Office Meds testosterone cypionate Performing Provider: Madi Amos MD Administered by: Hazel Styles RN on 09/13/22 16:45 Dose Route Admin Location Lot Number Expiration Date [employer] 200 mg IM right gluteus [id number] 01/23/25 6959-8379-86 MARISOL PEREZ, Coding Diagnoses Assessment & Plan Assessment & Plan Orders: Orders AMB Testosterone Injection Patient Supplied Today E34.9 - Endocrine disorder, unspecified
== END 2022-09-13 16:39 | disposition home or self-care (01) ==
PROVIDERS: PCP Internal Medicine; Visit Provider Internal Medicine
DX: E34.9 Endocrine disorder, unspecified (principal)
CPT/HCPCS: 96372

== ENCOUNTER 2022-10-07 06:40 | Outpatient (REF) | payer OTHER, SELFPAY ==
[2022-10-07 07:03] LABS: MANUAL DIFF FLAG NO
[2022-10-07 07:16] LABS: Basophils Percent Auto 0.5 % (0-2); Eosinophils Absolute Auto 0.6 X10*3/uL (0.0-0.4); Eosinophils Percent Auto 6.9 % (0-4); Hematocrit 48.8 % (42.0-52.0); Hemoglobin 16.2 g/dl (14.0-18.0); Imm Gran Abs Auto 0.04 X10*3/uL (0.00-0.03); Imm Gran Pct Auto 0.5 % (0.0-0.4); Lymphocytes Absolute Auto 3.1 X10*3/uL (1.2-4.9); Lymphocytes Percent Auto 37.3 % (20-40); Mean Corpuscular HGB Conc 33.2 g/dl (31.0-36.0); Mean Corpuscular Hemoglobin 27.9 pg (27.0-33.0); Mean Corpuscular Volume 84.1 fL (80.0-98.0); Mean Platelet Volume 10.3 fL (9.4-12.4); Monocytes Absolute Auto 0.7 X10*3/uL (0.1-1.2); Monocytes Percent Auto 8.5 % (2-11); Neutrophils Absolute Auto 3.8 x10*3/uL (2.0-8.3); Neutrophils Percent Auto 46.3 % (45-73); Platelet Count 249 X10*3/uL (160-400); Red Cell Distribution Width 14.6 % (11.0-16.0); White Blood Count 8.2 X10*3/uL (4.8-10.8)
[2022-10-07 09:24] LABS: Appearance Urine Clear; Color Urine Yellow; Glucose Urine UA Negative (Negative); Leukocyte Esterase Urine Negative (Negative); Nitrite Urine Negative (Negative); PH 6.5 (5.0-9.0); Specific Gravity - Urine 1.015 (1.005-1.025); Urine Blood Negative (Negative); Urine Ketones Negative (Negative); Urine Protein Negative (Neg-Trace)
[2022-10-07 10:29] LABS: Alanine Aminotransferase 29 U/L (0-40); Alkaline Phosphatase 35 U/L (39-117); Anion Gap 13 (12-20); Aspartate Amino Transferase 24 U/L (5-37); Bilirubin Total 0.4 mg/dL (0.0-1.0); Blood Urea Nitrogen 18 mg/dL (9-16); Calcium 10.4 mg/dL (8.4-10.2); Carbon Dioxide 27 mmol/L (22-29); Chloride 103 mmol/L (96-108); Cholesterol 156 mg/dL; Estimated Glomerular Filt Rate > 60; Glucose Fasting 96 mg/dL (60-99); HDL Cholesterol 27 mg/dL; LDL Cholesterol Calculated 71 mg/dl; Potassium 4.4 mmol/L (3.3-5.1); Sodium 139 mmol/L (135-145); TSH reflex Free T4 3.03 uIU/mL (0.32-4.0); Total Protein 7.7 g/dL (6.5-8.0); Triglycerides 290 mg/dL; Vitamin D 25-OH Total 54.2 ng/mL (>30)
[2022-10-07 11:28] LABS: Estimated Average Glucose 126 mg/dL
== END 2022-10-07 06:41 | disposition home or self-care (01) ==
LOC: HO.LAB 06:40
PROVIDERS: PCP Internal Medicine; Visit Provider Internal Medicine
DX: E55.9 Vitamin D deficiency, unspecified (principal); R30.0 Dysuria; E11.9 Type 2 diabetes mellitus without complications; E78.00 Pure hypercholesterolemia, unspecified; I10 Essential (primary) hypertension
CPT/HCPCS: 36415; 80053; 80061; 81003; 82306; 83036; 84443; 85025

== ENCOUNTER 2022-10-10 15:50 | Outpatient (AMB) | payer OTHER, SELFPAY ==
[2022-10-10 15:54] VITALS: BP 102/60; PULSE 78; O2SAT 97; BMI 24.7
--- NOTE | 2022-10-10 15:54 | A.OFFVIS_ITS ---
Intake Vital Signs 10/10/22 15:54 Height 5 ft 6 in Weight 153 lb BMI 24.7 BP 102/60 Blood Pressure Location Lt brachial Position Sitting Pulse 78 Pulse Source Pulse Oximeter Pulse Oximetry (%) 97 Oxygen Delivery Method Room Air Intake Visit Reasons: Dyspnea Intake Note: pt is here for follow up and states he does cough, he does cough at night, and witnessed gasps for air by spouse, some daytime sleepiness pt spouse back after 11/12. Allergies Iodinated Contrast Media [IV Dye, Iodine Containing] Allergy (Severe, Verified 10/10/22 16:05) ANAPHYLAXIS aspirin [Aspirin] Allergy (Mild, Verified 10/10/22 16:05) ITCHING ibuprofen [Ibuprofen] Allergy (Mild, Verified 10/10/22 16:05) NAUSEA Penicillins Allergy (Mild, Verified 10/10/22 16:05) ITCHING/SWELLING Gadolinium-Containing Contrast Medi [GADOLINIUM-CONTAINING CONTRAST] Allergy (Unknown, Verified 10/10/22 16:05) UNKNOWN iodine [IODINE] Allergy (Unknown, Verified 10/10/22 16:05) UNKNOWN morphine [MORPHINE] Allergy (Unknown, Verified 10/10/22 16:05) TACHYCARDIA oxycodone [From PERCOCET] Allergy (Unknown, Verified 10/10/22 16:05) N/V,H/A Sulfa (Sulfonamide Antibiotics) [SULFA (SULFONAMIDE ANTIBIOTICS)] Allergy (Unknown, Verified 10/10/22 16:05) UNKNOWN Medication List - Last Reconciled 10/10/22 by Tiburcio Rojas MD blood sugar diagnostic (FreeStyle Lite Strips) USE LAN LO INDICADO DOS VECES AL MARTÍN blood-glucose meter (FreeStyle Lite Meter kit) As directed cetirizine 10 mg PO DAILY PRN 90 days cholecalciferol (vitamin D3) 25 mcg PO DAILY 90 days clonazepam 1 mg PO BID PRN 30 days clotrimazole-betamethasone 1-0.05 % 1 appl topical BID 4 weeks [DIABETIC SHOES As directed] fluticasone propionate 50 mcg/actuation 1 spray intranasal DAILY lancets (FreeStyle Lancets) As directed-CHECK BLOOD SUGAR TWICE A DAY - Dx: E11.9 loratadine 10 mg PO DAILY PRN 90 days metformin 500 mg PO BID mometasone 0.1% 1 appl topical DAILY PRN testosterone cypionate 200 mg IM .qo week Do you need a note to return to daycare/school/sports/work: No HPI Dyspnea HPI Details THIS 61 YEARS OLD [place]-SPEAKING GENTLEMAN, COMES FOR HIS ROUTINE FOLLOW-UP AFTER 6 MONTHS. HIS COMES WITH HIM WHO IS OUR PATIENT. SHE TAKES CARE OF HIM AT HOME AND SHE IS THE ONE WHO DOES MOST OF THE TALKING ON HIS BEHALF. 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 BUT HE HAS BEEN RELATIVELY ASYMPTOMATIC , NOT REQUIRING ANY BRONCHODILATORS. HE IS ALSO NOT PRONE TO GET RECURRENT RESPIRATORY INFECTION. HAS MILD INTERMITTENT NASAL CONGESTION PROBABLY DUE TO ALLERGIC RHINITIS, CONTROLLED WITH CETIRIZINE 10 MG P.R.N. TODAY HIS IS TELLING THAT HE SNORES DURING SLEEP, WAKES UP QUITE A FEW TIMES DURING THE NIGHT AND DURING THE DAYTIME HE KEEPS ON FALLING ASLEEP WHEN SITTING IN A RECLINER. HAS OBSTRUCTIVE SLEEP APNEA AND USES CPAP. SHE KNOWS VERY WELL THAT HER MAY HAVE SLEEP APNEA. AND WOULD LIKE TO HAVE A SLEEP STUDY FOR HIM. [facility] Medical History (Updated 10/10/22 @ 16:31 by Tiburcio Rojas MD) Abnormal chest xray Allergic rhinitis Anxiety Arthritis Chest pain Cigar smoker Diabetes mellitus Hx of flexible sigmoidoscopy Hypotestosteronism IBS (irritable bowel syndrome) ILD (interstitial lung disease) Left hand pain Mixed dyslipidemia Renal calculi Retrognathia Right hip pain Right shoulder pain Snoring Somnolence, daytime Swelling of left hand Vitamin D deficiency Surgical History History of colonoscopy History of lithotripsy History of testicular surgery Hx laparoscopic cholecystectomy Hx of cystoscopy Family History Father Prostate cancer Mother Hypertension Hypercholesterolemia Brother Hypertension Diabetes Social History Housing: Apartment Alcohol intake: never Patient Tobacco Use Status: Former Tobacco user Tobacco use type: Cigar Cigarettes Per Day: 3 Years Smoked: pt states quit 01/2022 e-Cigarette/Vaping Use: Never Used Second Hand Smoke Exposure: Yes Advance Directives Date on File: 11/07/14 service: No Current occupational status: disabled Cognitive needs: No Hearing needs: No Vision needs: Yes Review of Systems Const All systems reviewed & are unremarkable except as noted in HPI and below Eyes Reports no additional complaints ENT Reports nasal congestion (Mild chronic) Card Reports chest pain (Chest pain and is more like muscular and not cardiac related), Denies irregular heart rhythm and Denies leg edema Resp Reports as per HPI GI Reports constipation Reports erectile dysfunction Musc Denies back pain, Denies myalgias and Denies arthralgias Skin/Breast Reports system reviewed and no additional complaints, except as documented Neuro Reports no additional complaints Psych Reports anxiety Physical Exam Vital Signs: Last Vital Signs Pulse 78 10/10/22 15:54 BP 102/60 10/10/22 15:54 Pulse Ox 97 10/10/22 15:54 Oxygen Delivery Method Room Air 10/10/22 15:54 BMI result Body Mass Index 24.7 Const General: healthy appearing, comfortable, no acute distress, alert and awake Orientation/consciousness: patient oriented x3 HEENT Head: Yes normal to inspection General nose exam: No nasal polyps present and No nasal discharge present Face and sinus: Yes sinuses nontender Mouth: oropharynx normal (OROPHARYNX IS NARROW AND TONGUE IS PLACED BACK, MALLAMPATI CLASS 3) Teeth and gingiva: other (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 Cardio Palpation: normal PMI Rate: regular rate Rhythm: regular rhythm Heart sounds: no gallops and no murmurs Peripheral pulses: Peripheral pulses 2+ throughout GI Palpation (GI): Soft to palpation, nontender, No hepatosplenomegaly present and no masses Auscultation: normal bowel sounds Back/Spine/Pelvis Thoracic/Lumbar Spine: thoracic and lumbar spine normal to inspection Skin General skin exam: no rashes or lesions noted Neuro General: patient oriented x3 and no focal motor deficits Cranial nerves: Yes CN's II-XII intact bilaterally Extrem General: Yes normal to inspection, Yes no clubbing, cyanosis or edema and Yes no calf tenderness Psych Appearance: grossly normal and well kempt Speech and movement: Normal speech and movement present Assessment & Plan Assessment & Plan (1) ILD (interstitial lung disease): Comment: History of smoking cigars. CT scan changes of chronic interstitial lung disease/ most likely pulmonary fibrosis. The patient is almost asymptomatic except for mild intermittent cough. Patient does not need any bronchodilator inhalers. Code(s): J84.9 - Interstitial pulmonary disease, unspecified (2) Cigar smoker: Comment: Smokes 2-3 cigars per day for the last 30 years. HE TELLS ME THAT HE HAS QUIT SMOKING COMPLETELY. Code(s): F17.290 - Nicotine dependence, other tobacco product, uncomplicated (3) Allergic rhinitis: Comment: Chronic nasal congestion and postnasal discharge, secondary to allergic rhinitis. Controlled and may use loratadine 10 mg PRN . He told me that at present he is not using any medication for his nose. Code(s): J30.9 - Allergic rhinitis, unspecified Qualifiers: Allergic rhinitis trigger: unspecified Allergic rhinitis seasonality: unspecified Qualified Code(s): J30.9 - Allergic rhinitis, unspecified (4) Somnolence, daytime: Comment: According to his , he is a heavy snorer, sleep is interrupted at night. He falls asleep in the recliner quite frequently during the daytime. HE NEEDS TO BE EVALUATED FOR SLEEP APNEA. SO I WILL GO AHEAD AND ORDER A HOME-BASED SLEEP STUDY. Code(s): R40.0 - Somnolence (5) Retrognathia: Comment: THIS GENTLEMAN IS NOT OVERWEIGHT AND THE MAIN REASON FOR HIS SUSPECTED SLEEP APNEA IS RETROGANTHIA OF THE LOWER JAW. Code(s): M26.19 - Other specified anomalies of jaw-cranial base relationship Orders: Orders RT home sleep study Today M26.19 - Other specified anomalies of jaw-cranial base relationship, R06.83 - Snoring, R40.0 - Somnolence Coding Level of Care Code Est Pt Level 3 (28104) Diagnoses ILD (interstitial lung disease) J84.9 Cigar smoker F17.290 Allergic rhinitis J30.9 Allergic rhinitis trigger: unspecified Allergic rhinitis seasonality: unspecified Somnolence, daytime R40.0 Retrognathia M26.19
== END 2022-10-10 16:17 | disposition home or self-care (01) ==
PROVIDERS: PCP Internal Medicine; Visit Provider Internal Medicine
DX: J84.9 Interstitial pulmonary disease, unspecified (principal); F17.290 Nicotine dependence, other tobacco product, uncomplicated; J30.9 Allergic rhinitis, unspecified; R40.0 Somnolence; M26.19 Other specified anomalies of jaw-cranial base relationship
CPT/HCPCS: 99213

== ENCOUNTER → 2022-10-10 15:50 | Outpatient (BNVA) | payer OTHER, SELFPAY | PROVIDERS: PCP Internal Medicine; Visit Provider Internal Medicine | DX: J84.9 Interstitial pulmonary disease, unspecified (principal); J30.9 Allergic rhinitis, unspecified; R40.0 Somnolence; M26.19 Other specified anomalies of jaw-cranial base relationship; F17.290 Nicotine dependence, other tobacco product, uncomplicated | CPT/HCPCS: 99212 ==

== ENCOUNTER 2022-10-18 15:34 | Outpatient (AMB) | payer OTHER, SELFPAY ==
--- NOTE | 2022-10-18 16:11 | AM.OFFVISNUR ---
Intake Intake Visit Reasons: testosterone injection Allergies Iodinated Contrast Media [IV Dye, Iodine Containing] Allergy (Severe, Verified 10/10/22 16:05) ANAPHYLAXIS aspirin [Aspirin] Allergy (Mild, Verified 10/10/22 16:05) ITCHING ibuprofen [Ibuprofen] Allergy (Mild, Verified 10/10/22 16:05) NAUSEA Penicillins Allergy (Mild, Verified 10/10/22 16:05) ITCHING/SWELLING Gadolinium-Containing Contrast Medi [GADOLINIUM-CONTAINING CONTRAST] Allergy (Unknown, Verified 10/10/22 16:05) UNKNOWN iodine [IODINE] Allergy (Unknown, Verified 10/10/22 16:05) UNKNOWN morphine [MORPHINE] Allergy (Unknown, Verified 10/10/22 16:05) TACHYCARDIA oxycodone [From PERCOCET] Allergy (Unknown, Verified 10/10/22 16:05) N/V,H/A Sulfa (Sulfonamide Antibiotics) [SULFA (SULFONAMIDE ANTIBIOTICS)] Allergy (Unknown, Verified 10/10/22 16:05) UNKNOWN Office Meds testosterone cypionate Performing Provider: Madi Amos MD Administered by: Hazel Styles RN on 10/18/22 16:11 Dose Route Admin Location Lot Number Expiration Date NDC [employer] 200 mg IM right gluteus [id number] 12/24/22 [id number] [facility] Assessment & Plan Assessment & Plan Orders: Orders AMB Testosterone Injection Patient Supplied Today E34.9 - Endocrine disorder, unspecified
== END 2022-10-18 16:09 | disposition home or self-care (01) ==
PROVIDERS: PCP Internal Medicine; Visit Provider Internal Medicine
DX: E34.9 Endocrine disorder, unspecified (principal)
CPT/HCPCS: 96372

== ENCOUNTER 2022-10-29 16:54 | Outpatient (AMB) | payer OTHER, SELFPAY ==
[2022-10-29 16:54] VITALS: BP 120/72; PULSE 93; O2SAT 96; BMI 24.5
--- NOTE | 2022-10-29 16:54 | A.OFFPC_ITS ---
Vital Signs 10/29/22 16:54 Height 5 ft 6 in Weight 152 lb BMI 24.5 BP 120/72 Blood Pressure Location Lt brachial Position Sitting Pulse 93 Pulse Source Pulse Oximeter Pulse Oximetry (%) 96 Oxygen Delivery Method Room Air Intake Visit Reasons: DM, hyperlipidemia, anxiety, hypotestosteronism Hand Sander Required: No Accompanied by: Self / Same As Patient Allergies Iodinated Contrast Media [IV Dye, Iodine Containing] Allergy (Severe, Verified 10/29/22 17:13) ANAPHYLAXIS aspirin [Aspirin] Allergy (Mild, Verified 10/29/22 17:13) ITCHING ibuprofen [Ibuprofen] Allergy (Mild, Verified 10/29/22 17:13) NAUSEA Penicillins Allergy (Mild, Verified 10/29/22 17:13) ITCHING/SWELLING Gadolinium-Containing Contrast Medi [GADOLINIUM-CONTAINING CONTRAST] Allergy (Unknown, Verified 10/29/22 17:13) UNKNOWN iodine [IODINE] Allergy (Unknown, Verified 10/29/22 17:13) UNKNOWN morphine [MORPHINE] Allergy (Unknown, Verified 10/29/22 17:13) TACHYCARDIA oxycodone [From PERCOCET] Allergy (Unknown, Verified 10/29/22 17:13) N/V,H/A Sulfa (Sulfonamide Antibiotics) [SULFA (SULFONAMIDE ANTIBIOTICS)] Allergy (Unknown, Verified 10/29/22 17:13) UNKNOWN Medication List - Last Reconciled 10/29/22 by Madi Amos MD blood sugar diagnostic (FreeStyle Lite Strips) USE LAN LO INDICADO DOS VECES AL MARTÍN blood-glucose meter (FreeStyle Lite Meter kit) As directed cetirizine 10 mg PO DAILY PRN 90 days cholecalciferol (vitamin D3) 25 mcg PO DAILY 90 days clonazepam 1 mg PO BID PRN 30 days clotrimazole-betamethasone 1-0.05 % 1 appl topical BID 4 weeks [DIABETIC SHOES As directed] fluticasone propionate 50 mcg/actuation 1 spray intranasal DAILY lancets (FreeStyle Lancets) As directed-CHECK BLOOD SUGAR TWICE A DAY - Dx: E11.9 loratadine 10 mg PO DAILY PRN 90 days metformin 500 mg PO BID mometasone 0.1% 1 appl topical DAILY PRN testosterone cypionate 200 mg IM Q4W 28 days testosterone cypionate 200 mg IM .qo week Tobacco use date assessed: 10/29/22 Dental Screening Dental Screen Date: 10/29/22 Did you have a dental visit in the last 12 months?: No Did you have a dental problem in the last 6 months where you did not have access to dental care?: No Was dental information given to patient?: No HPI DM, hyperlipidemia, anxiety, hypotestosteronism HPI Details Patient comes in today for his follow up visit States that he feels okay He denies any headaches or dizziness Denies any chest pains, no SOB No nausea/vomiting, no abdominal pain States that he has noticed some loose stools at times lately Would like to have his Clonazepam Rx refilled proactively as his states that they always have problems getting it on time from his pharmacy Patient's adds that she has noticed some dark lesions on top of the patient's head/scalp area lately and she would like for him to be seen and evaluated by dermatology for these Had his follow up labs done a couple of weeks ago - to discuss his results [facility] Medical History Abnormal chest xray Allergic rhinitis Anxiety Arthritis Chest pain Cigar smoker Diabetes mellitus Hx of flexible sigmoidoscopy Hypotestosteronism IBS (irritable bowel syndrome) ILD (interstitial lung disease) Left hand pain Mixed dyslipidemia Renal calculi Retrognathia Right hip pain Right shoulder pain Snoring Somnolence, daytime Swelling of left hand Vitamin D deficiency Surgical History History of colonoscopy History of lithotripsy History of testicular surgery Hx laparoscopic cholecystectomy Hx of cystoscopy Family History Father Prostate cancer Mother Hypertension Hypercholesterolemia Brother Hypertension Diabetes Social History Housing: Apartment Alcohol intake: never Patient Tobacco Use Status: Former Tobacco user Tobacco use type: Cigar Cigarettes Per Day: 3 Years Smoked: pt states quit 01/2022 e-Cigarette/Vaping Use: Never Used Second Hand Smoke Exposure: Yes Advance Directives Date on File: 11/07/14 service: No Current occupational status: disabled Cognitive needs: No Hearing needs: No Vision needs: Yes Questionnaire PHQ-9 Over the last 2 weeks, how often have you been bothered by any of the following problems? 1. Little interest or pleasure in doing things: not at all 2. Feeling down, depressed, or hopeless: not at all 3. Trouble falling or staying asleep, or sleeping too much: not at all 4. Feeling tired or having little energy: not at all 5. Poor appetite or overeating: not at all 6. Feeling bad about yourself - or that you are a failure or have let yourself or your family down: not at all 7. Trouble concentrating on things, such as reading the newspaper or watching television: not at all 8. Moving or speaking so slowly that other people could have noticed. Or the opposite - being so fidgety or restless that you have been moving around a lot more than usual: not at all 9. Thoughts that you would be better off or of hurting yourself in some way: not at all Total score: 0 Depression Screening Interpretation: Negative [id number] - PHQ-9 Billing: Yes Source: Developed by Drs. Onesimo Swenson, Juana Giordano, Spencer Swan and colleagues, with an educational cesar from [employer]. Thrive Questionnaire Date Thrive assessed: 10/29/22 I am a: Patient What is your living situation today?: I have a steady place to live Within the past 12 months, did the food you bought not last and you didn't have the money to get more?: Never true Within the past 12 months, did you worry whether your food would run out before you got money to buy more?: Never true Do you have trouble paying for medicines?: No Do you have trouble getting transportation to medical appointments?: No Do you have trouble paying your heating and electricity bill?: No Do you have trouble taking care of your child, family member or friend?: No Do you have trouble with day-to-day activities such as bathing, preparing meals, shopping, managing finances, etc.?: No Are you currently unemployed and looking for a job?: No Are you interested in more education?: No Please select the resources that you would like help with: None Currently or been in a relationship where the following occur: no concerns reported AUDIT C Alcohol Use Questionnaire (AUDIT-C) 1. How often do you have a drink containing alcohol?: Never 3. How often do you have six or more drinks on one occasion?: Never Total Score: 0 Score Reviewed/Action Taken: Yes MALIK-7 AMB Questionnaire MALIK-7 Date MALIK - 7 assessed: 10/29/22 Feeling nervous, anxious, or on edge: 0 = Not at all Not being able to stop or control worryin = Not at all Worrying too much about different things: 0 = Not at all Trouble relaxin = Not at all Being so restless that it is hard to sit still: 0 = Not at all Becoming easily annoyed or irritable: 0 = Not at all Feeling afraid as if something awful might happen: 0 = Not at all Total MALIK-7 score (0-4 normal; 5-9 mild; 10-14 moderate; 15-21 severe): 0 Source: Developed by Drs. Onesimo Swenson, Juana Giordano, Spencer Swan and colleagues, with an educational cesar from [employer]. Review of Systems Const Denies chills, Denies difficulty sleeping, Reports fatigue, Denies fever(s) and Denies headache(s) ENT Denies dysphagia, Denies dizziness, Denies otalgia, Denies headache(s), Denies odynophagia and Denies sore throat Card Denies chest pain, Denies palpitations and Denies dyspnea Resp Denies chest congestion, Denies cough and Denies dyspnea GI Denies abdominal pain, Denies constipation, Denies dysphagia, Denies heartburn, Denies diarrhea, Reports loose stools (on and off (S/P cholecystectomy) ), Denies nausea, Denies odynophagia and Denies vomiting Denies dysuria, Denies nocturia and Denies urinary frequency Musc Reports arthralgias (over the right hip and in both hands, on and off) Skin/Breast Details: (+) scattered dark skin lesions on the scalp Neuro Denies dizziness and Denies headache(s) Psych Reports anxiety (states that current Rx helps) Endo Reports fatigue and Denies palpitations Physical exam (Primary Care) Vital Signs: Last Vital Signs Pulse 93 10/29/22 16:54 BP 120/72 10/29/22 16:54 Pulse Ox 96 10/29/22 16:54 Oxygen Delivery Method Room Air 10/29/22 16:54 BMI result Body Mass Index 24.5 Tobacco/Smoking Status: Tobacco use Status Tobacco use date assessed 10/29/22 10/29/22 17:03 Patient Tobacco Use Status Former Tobacco user 10/29/22 17:03 Tobacco use type Cigar 10/29/22 17:03 e-Cigarette/Vaping Use Never Used 10/29/22 17:03 PHQ-9: PHQ-9 Score PHQ-9: Total score 0 10/29/22 17:23 Depression Screening Interpretation: Negative Thrive Assessment: Date of Thrive Assessment Date Thrive assessed 10/29/22 10/29/22 17:03 Currently or been in a relationship where the following occur: no concerns reported Const General: no acute distress and alert HENMT Ears: TM's normal bilaterally and EAC's normal Throat: Yes posterior oropharynx normal and Yes tonsils normal (no TP congestion) Neck Neck: Yes no lymphadenopathy and Yes supple Resp Auscultation: clear to auscultation bilaterally, no rales and no wheezes Cardio Rate: regular rate Rhythm: regular rhythm Heart sounds: no murmurs GI Palpation (GI): Soft to palpation and nontender Auscultation: normal bowel sounds Skin Other: (+) few scattered hyperpigmented skin lesions over the frontal and parietal scalp areas Rashes: no rashes Extrem General: Yes no clubbing, cyanosis or edema Right lower extremity: hip/thigh Details: tenderness Location: of the hip Results Reviewed Results Reviewed: Laboratory Tests 10/07/22 10/07/22 10/07/22 06:50 06:50 06:50 WBC 8.2 Hgb 16.2 Hct 48.8 Plt Count 249 Sodium 139 Potassium 4.4 Creatinine 1.20 Estimated GFR > 60 Fasting Glucose 96 Hemoglobin A1c % 6.0 Calcium 10.4 H D AST 24 ALT 29 Triglycerides 290 Cholesterol 156 LDL Cholesterol, Calc 71 HDL Cholesterol 27 25-OH Vitamin D Total 54.2 TSH 3.03 Ur Specific [place] Urine Protein Urine Glucose (UA) Urine Blood 10/07/22 Unknown WBC Hgb Hct Plt Count Sodium Potassium Creatinine Estimated GFR Fasting Glucose Hemoglobin A1c % Calcium AST ALT Triglycerides Cholesterol LDL Cholesterol, Calc HDL Cholesterol 25-OH Vitamin D Total TSH Ur Specific [place] 1.015 Urine Protein Negative Urine Glucose (UA) Negative Urine Blood Negative Assessment and Plan Assessment & Plan (1) Diabetes mellitus: Comment: taking metformin Code(s): E11.9 - Type 2 diabetes mellitus without complications Qualifiers: Diabetes mellitus complication status: without complication Diabetes mellitus group home insulin use: without group home use Diabetes mellitus type: type 2 Qualified Code(s): E11.9 - Type 2 diabetes mellitus without complications Plan: Cautioned patient that his HgbA1c has increased from 5.4% a few months ago to 6. 0% on his labs done a couple of weeks ago - goal is < 7.0% Reinforced diabetic diet Continue Metformin 500 mg BID (2) Mixed dyslipidemia: Code(s): E78.2 - Mixed hyperlipidemia Plan: Results of his labs done a couple of weeks ago reviewed and discussed with patient - advised that his LDL cholesterol has improved from previous but his serum TG level has gone up significantly, most likely in relation to his recent increase in his HgbA1c and glycemic control Reinforced low cholesterol diet Will recheck his labs and fasting lipids again in 3 months for follow-up (3) ILD (interstitial lung disease): Comment: History of smoking cigars. CT scan changes of chronic interstitial lung disease/ most likely pulmonary fibrosis. The patient is almost asymptomatic except for mild intermittent cough. Patient does not need any bronchodilator inhalers. Code(s): J84.9 - Interstitial pulmonary disease, unspecified Plan: Has mild ARORA at times but symptoms are mostly mild States that he has finally been able to quit smoking completely and he will be smoke-free for a year this coming January (2022) Follow up with pulmonary (Dr. Rojas) as scheduled (4) Daytime somnolence: Code(s): R40.0 - Somnolence Plan: He has been referred to Sleep Medicine for further evaluation and management (r/o narcolepsy) previously; is now seeing Dr. Rojas and states that Dr. Rojas will be scheduling him for a sleep study soon (5) Allergic rhinitis: Comment: Chronic nasal congestion and postnasal discharge, secondary to allergic rhinitis. Controlled and may use loratadine 10 mg PRN . He told me that at present he is not using any medication for his nose. Code(s): J30.9 - Allergic rhinitis, unspecified Qualifiers: Allergic rhinitis seasonality: unspecified Allergic rhinitis trigger: unspecified Qualified Code(s): J30.9 - Allergic rhinitis, unspecified Plan: Continue Cetirizine 10 mg QD PRN and Fluticasone 50 mcg nasal spray QD PRN Takes Loratadine 10 mg QD PRN if his symptoms are milder (6) Hypotestosteronism: Code(s): E34.9 - Endocrine disorder, unspecified Plan: Continue Testosterone injections 200 mg every 4 weeks Repeat serum testosterone level done a couple of weeks ago are still pending; his results previously came back high normal Will continue to monitor his serum testosterone level regularly (7) Vitamin D deficiency: Code(s): E55.9 - Vitamin D deficiency, unspecified Plan: Continue Vitamin D3 1000 units QD (8) Loose stools: Code(s): R19.5 - Other fecal abnormalities Plan: Advised that his recent loose stools are most likely related to his post- cholecystectomy status Reminded that since he no longer has a gall bladder, he should avoid eating and greasy, oily or fried foods or he will get diarrhea and loose stools as a result (9) Renal calculi: Comment: S/P ESWL last year Code(s): N20.0 - Calculus of kidney Plan: Patient has been asymptomatic lately Follow up with urology as scheduled (10) Skin lesion of scalp: Code(s): L98.9 - Disorder of the skin and subcutaneous tissue, unspecified Plan: Per his 's request, will refer patient to dermatology for further evaluation and management of the multiple skin lesions on his scalp (11) Anxiety: Code(s): F41.9 - Anxiety disorder, unspecified Plan: Continue Clonazepam 1 mg 1 to 2 tablets BID PRN Plan Follow up in 3 months Orders: Orders Complete Blood Count Auto Diff 3 Months I10 - Essential (primary) hypertension Comprehensive [place]. Panel Fast 3 Months E78.00 - Pure hypercholesterolemia, unspecified TSH reflex Free T4 3 Months E78.00 - Pure hypercholesterolemia, unspecified UA CC w/rflx Micro + Cult 3 Months R30.0 - Dysuria Microalbumin, Random (w Creat) 3 Months E11.9 - Type 2 diabetes mellitus without complications Lipid Panel 3 Months E78.00 - Pure hypercholesterolemia, unspecified Hemoglobin A1c 3 Months E11.9 - Type 2 diabetes mellitus without complications Vitamin D 25-OH Total 3 Months E55.9 - Vitamin D deficiency, unspecified Testosterone, Free/Total 3 Months R79.89 - Other specified abnormal findings of blood chemistry Referrals Dermatology Referral L98.9 - Disorder of the skin and subcutaneous tissue, unspecified Medications: Refilled clonazepam 1 mg PO BID 30 days PRN 60 tabs 0RF Anxiety Coding Level of Care Code Est Pt Level 4 (02224) Diagnoses Diabetes mellitus E11.9 Diabetes mellitus complication status: without complication Diabetes mellitus [employer] insulin use: without [employer] use Diabetes mellitus type: type 2 Mixed dyslipidemia E78.2 ILD (interstitial lung disease) J84.9 Daytime somnolence R40.0 Allergic rhinitis J30.9 Allergic rhinitis seasonality: unspecified Allergic rhinitis trigger: unspecified Hypotestosteronism E34.9 Vitamin D deficiency E55.9 Loose stools R19.5 Renal calculi N20.0 Skin lesion of scalp L98.9 Anxiety F41.9
== END 2022-10-29 17:36 | disposition home or self-care (01) ==
PROVIDERS: PCP Internal Medicine; Visit Provider Internal Medicine
DX: E11.9 Type 2 diabetes mellitus without complications (principal); J84.9 Interstitial pulmonary disease, unspecified; E55.9 Vitamin D deficiency, unspecified; F41.9 Anxiety disorder, unspecified; E78.2 Mixed hyperlipidemia; R40.0 Somnolence; J30.9 Allergic rhinitis, unspecified; E34.9 Endocrine disorder, unspecified; R19.5 Other fecal abnormalities; N20.0 Calculus of kidney; L98.9 Disorder of the skin and subcutaneous tissue, unspecified
CPT/HCPCS: 99214

== ENCOUNTER → 2022-12-24 12:50 | Outpatient (REF) | payer OTHER, SELFPAY | LOC: HO.SL 12:50 | PROVIDERS: PCP Internal Medicine; Visit Provider Internal Medicine | DX: R40.0 Somnolence (principal); R06.83 Snoring; M26.19 Other specified anomalies of jaw-cranial base relationship | CPT/HCPCS: 95806 ==

== ENCOUNTER → 2022-12-24 13:13 | Outpatient (BNV) | payer OTHER, SELFPAY | PROVIDERS: PCP Internal Medicine; Visit Provider Internal Medicine | DX: R06.83 Snoring (principal); R40.0 Somnolence | CPT/HCPCS: 95806 ==

== ENCOUNTER 2023-01-13 14:11 | Outpatient (AMB) | payer OTHER, SELFPAY ==
[2023-01-13 14:49] VITALS: BP 100/60; PULSE 84; O2SAT 97; BMI 25.0
--- NOTE | 2023-01-13 14:49 | MHC.OFFVIS ---
Intake Vital Signs 01/13/23 14:49 Height 5 ft 6 in Weight 155 lb BMI 25.0 BP 100/60 Blood Pressure Location Lt brachial Position Sitting Pulse 84 Pulse Source Pulse Oximeter Pulse Oximetry (%) 97 Oxygen Delivery Method Room Air Intake Visit Reasons: sleep apnea Intake Note: pt is here for follow up of sleep study. Long Chain Beamer Required: No Allergies Iodinated Contrast Media [IV Dye, Iodine Containing] Allergy (Severe, Verified 01/13/23 16:23) ANAPHYLAXIS aspirin [Aspirin] Allergy (Mild, Verified 01/13/23 16:23) ITCHING ibuprofen [Ibuprofen] Allergy (Mild, Verified 01/13/23 16:23) NAUSEA Penicillins Allergy (Mild, Verified 01/13/23 16:23) ITCHING/SWELLING Gadolinium-Containing Contrast Medi [GADOLINIUM-CONTAINING CONTRAST] Allergy (Unknown, Verified 01/13/23 16:23) UNKNOWN iodine [IODINE] Allergy (Unknown, Verified 01/13/23 16:23) UNKNOWN morphine [MORPHINE] Allergy (Unknown, Verified 01/13/23 16:23) TACHYCARDIA oxycodone [From PERCOCET] Allergy (Unknown, Verified 01/13/23 16:23) N/V,H/A Sulfa (Sulfonamide Antibiotics) [SULFA (SULFONAMIDE ANTIBIOTICS)] Allergy (Unknown, Verified 01/13/23 16:23) UNKNOWN Medication List - Last Reconciled 01/13/23 by Tiburcio Rojas MD blood sugar diagnostic (FreeStyle Lite Strips) USE LAN LO INDICADO DOS VECES AL MARTÍN blood-glucose meter (FreeStyle Lite Meter kit) As directed cetirizine 10 mg PO DAILY PRN 90 days cholecalciferol (vitamin D3) 25 mcg PO DAILY 90 days clonazepam 1 mg PO BID PRN 30 days clotrimazole-betamethasone 1-0.05 % 1 appl topical BID 4 weeks [DIABETIC SHOES As directed] fluticasone propionate 50 mcg/actuation 1 spray intranasal DAILY lancets (FreeStyle Lancets) As directed-CHECK BLOOD SUGAR TWICE A DAY - Dx: E11.9 loratadine 10 mg PO DAILY PRN 90 days metformin 500 mg PO BID mometasone 0.1% 1 appl topical DAILY PRN testosterone cypionate 200 mg IM Q4W 28 days testosterone cypionate 200 mg IM .qo week Do you need a note to return to daycare/school/sports/work: No HPI sleep apnea HPI Details This 62 years old gentleman had undergone home-based sleep study with the complaint of poor sleep at night and daytime sleepiness. At present he sleeps about 4 hours every night. He states that it is because he tends to wake up frequently. He does have some sleepiness during the daytime but not as much as before. He remains, active and he is of normal weight. [facility] Medical History (Updated 01/13/23 @ 16:29 by Tiburcio Rojas MD) LEIA (obstructive sleep apnea) Snoring Retrognathia Somnolence, daytime ILD (interstitial lung disease) Abnormal chest xray Chest pain Hx of flexible sigmoidoscopy IBS (irritable bowel syndrome) Arthritis Cigar smoker Anxiety Vitamin D deficiency Renal calculi Allergic rhinitis Mixed dyslipidemia Diabetes mellitus Right hip pain Right shoulder pain Hypotestosteronism Swelling of left hand Left hand pain Surgical History Hx of cystoscopy Hx laparoscopic cholecystectomy History of testicular surgery History of colonoscopy History of lithotripsy Family History Father Prostate cancer Mother Hypertension Hypercholesterolemia Brother Hypertension Diabetes Social History Housing: Apartment Alcohol intake: never Patient Tobacco Use Status: Former Tobacco user Tobacco use type: Cigar Cigarettes Per Day: 3 Years Smoked: pt states quit 01/2022 e-Cigarette/Vaping Use: Never Used Second Hand Smoke Exposure: Yes Advance Directives Date on File: 11/07/14 service: No Current occupational status: disabled Cognitive needs: No Hearing needs: No Vision needs: Yes Review of Systems Const All systems reviewed & are unremarkable except as noted in HPI and below Eyes Reports no additional complaints ENT Reports nasal congestion (Mild chronic) Card Reports chest pain (Chest pain and is more like muscular and not cardiac related), Denies irregular heart rhythm and Denies leg edema Resp Reports as per HPI GI Reports constipation Reports erectile dysfunction Musc Denies back pain, Denies myalgias and Denies arthralgias Skin/Breast Reports system reviewed and no additional complaints, except as documented Neuro Reports no additional complaints Psych Reports anxiety Physical Exam Vital Signs: Last Vital Signs Pulse 84 01/13/23 14:49 BP 100/60 01/13/23 14:49 Pulse Ox 97 01/13/23 14:49 Oxygen Delivery Method Room Air 01/13/23 14:49 BMI result Body Mass Index 25.0 Const General: healthy appearing, comfortable, no acute distress, alert and awake Orientation/consciousness: patient oriented x3 HEENT Head: Yes normal to inspection General nose exam: No nasal polyps present and No nasal discharge present Face and sinus: Yes sinuses nontender Mouth: oropharynx normal (OROPHARYNX IS NARROW AND TONGUE IS PLACED BACK, MALLAMPATI CLASS 3) Teeth and gingiva: other (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 Cardio Palpation: normal PMI Rate: regular rate Rhythm: regular rhythm Heart sounds: no gallops and no murmurs Peripheral pulses: Peripheral pulses 2+ throughout GI Palpation (GI): Soft to palpation, nontender, No hepatosplenomegaly present and no masses Auscultation: normal bowel sounds Back/Spine/Pelvis Thoracic/Lumbar Spine: thoracic and lumbar spine normal to inspection Skin General skin exam: no rashes or lesions noted Neuro General: patient oriented x3 and no focal motor deficits Cranial nerves: Yes CN's II-XII intact bilaterally Extrem General: Yes normal to inspection, Yes no clubbing, cyanosis or edema and Yes no calf tenderness Psych Appearance: grossly normal and well kempt Speech and movement: Normal speech and movement present Results Reviewed Results Reviewed: Home-based sleep study on 12/25/2022, . Is basically normal Total sleep time AHI 4.2, supine position AHI 6.6 and non in the lateral positions. Snoring for only 3.8% of the sleep time. He had mild nocturnal hypoxemia with O2 sat below 88% for 20 minutes. This is probably due to technical reason as he does not have any chronic pulmonary disease. Assessment & Plan Assessment & Plan (1) Retrognathia: Comment: THIS GENTLEMAN IS NOT OVERWEIGHT AND THE MAIN REASON FOR HIS SUSPECTED SLEEP APNEA IS RETROGANTHIA OF THE LOWER JAW. Code(s): M26.19 - Other specified anomalies of jaw-cranial base relationship Plan: See the note below (2) Somnolence, daytime: Comment: According to his , he is a heavy snorer, sleep is interrupted at night. He falls asleep in the recliner quite frequently during the daytime. HE NEEDS TO BE EVALUATED FOR SLEEP APNEA. SO I WILL GO AHEAD AND ORDER A HOME-BASED SLEEP STUDY. Code(s): R40.0 - Somnolence Plan: I explained the results of the study to the patient through his . If at all he has only borderline sleep apnea which is mostly in supine position. He is the educated and advised to sleep in lateral positions. I told him that his daytime sleepiness may be due to, poor sleep at night. He claims that he is sleeping better than before. (3) LEIA (obstructive sleep apnea): Code(s): G47.33 - Obstructive sleep apnea (adult) (pediatric) Plan: as above Coding Level of Care Code Est Pt Level 3 (57092) Diagnoses Retrognathia M26.19 Somnolence, daytime R40.0 LEIA (obstructive sleep apnea) G47.33
== END 2023-01-13 15:23 | disposition home or self-care (01) ==
PROVIDERS: PCP Internal Medicine; Visit Provider Internal Medicine
DX: M26.19 Other specified anomalies of jaw-cranial base relationship (principal); R40.0 Somnolence; G47.33 Obstructive sleep apnea (adult) (pediatric)
CPT/HCPCS: 99213

== ENCOUNTER → 2023-01-13 14:11 | Outpatient (BNVA) | payer OTHER, SELFPAY | PROVIDERS: PCP Internal Medicine; Visit Provider Internal Medicine | DX: G47.33 Obstructive sleep apnea (adult) (pediatric) (principal); M26.19 Other specified anomalies of jaw-cranial base relationship; R40.0 Somnolence | CPT/HCPCS: 99212 ==

== ENCOUNTER 2023-01-23 07:49 | Outpatient (REF) | payer OTHER, SELFPAY ==
[2023-01-23 08:13] LABS: MANUAL DIFF FLAG NO
[2023-01-23 08:15] LABS: Basophils Percent Auto 0.3 % (0-2); Eosinophils Absolute Auto 0.6 X10*3/uL (0.0-0.4); Eosinophils Percent Auto 6.6 % (0-4); Hematocrit 42.5 % (42.0-52.0); Hemoglobin 14.5 g/dl (14.0-18.0); Imm Gran Abs Auto 0.04 X10*3/uL (0.00-0.03); Imm Gran Pct Auto 0.5 % (0.0-0.4); Lymphocytes Absolute Auto 2.9 X10*3/uL (1.2-4.9); Lymphocytes Percent Auto 33.8 % (20-40); Mean Corpuscular HGB Conc 34.1 g/dl (31.0-36.0); Mean Corpuscular Hemoglobin 29.3 pg (27.0-33.0); Mean Corpuscular Volume 85.9 fL (80.0-98.0); Mean Platelet Volume 9.6 fL (9.4-12.4); Monocytes Absolute Auto 0.6 X10*3/uL (0.1-1.2); Neutrophils Absolute Auto 4.4 x10*3/uL (2.0-8.3); Neutrophils Percent Auto 51.8 % (45-73); Platelet Count 282 X10*3/uL (160-400); Red Blood Count 4.95 X10*6/uL (4.60-5.80); Red Cell Distribution Width 13.3 % (11.0-16.0); White Blood Count 8.6 X10*3/uL (4.8-10.8)
[2023-01-23 08:26] LABS: Estimated Average Glucose 123 mg/dL; Hemoglobin A1c % 5.9 % (<6.0)
[2023-01-23 08:52] LABS: Alanine Aminotransferase 41 U/L (0-40); Albumin Level 4.2 g/dL (3.5-5.0); Alkaline Phosphatase 37 U/L (39-117); Anion Gap 10 (12-20); Aspartate Amino Transferase 26 U/L (5-37); Bilirubin Total 0.5 mg/dL (0.0-1.0); Blood Urea Nitrogen 22 mg/dL (9-16); Calcium 9.9 mg/dL (8.4-10.2); Carbon Dioxide 30 mmol/L (22-29); Chloride 102 mmol/L (96-108); Cholesterol 188 mg/dL (<200); Estimated Glomerular Filt Rate > 60; Glucose Fasting 110 mg/dL (60-99); HDL Cholesterol 39 mg/dL (>40); LDL Cholesterol Calculated 122 mg/dL (<100); Potassium 4.1 mmol/L (3.3-5.1); Sodium 138 mmol/L (135-145); Total Protein 7.9 g/dL (6.5-8.0); Triglycerides 139 mg/dL (<150)
[2023-01-23 09:15] LABS: Appearance Urine Clear; Color Urine Yellow; Glucose Urine UA Negative (Negative); Leukocyte Esterase Urine Negative (Negative); Nitrite Urine Negative (Negative); Specific Gravity - Urine 1.015 (1.005-1.025); Urine Blood Negative (Negative); Urine Ketones Negative (Negative); Urine Protein Negative (Neg-Trace)
[2023-01-23 09:18] LABS: TSH reflex Free T4 3.25 uIU/mL (0.32-4.0); Vitamin D 25-OH Total 53.3 ng/mL (>30)
[2023-01-23 09:35] LABS: Creatinine Urine 107.39 mg/dL; Microalbumin Urine < 5.0 mg/L
[2023-01-28 18:43] LABS: Testosterone, Free 3.3 pg/mL (35.0-155.0); Testosterone, Total 18 ng/dL (250-1100)
== END 2023-01-23 07:50 | disposition home or self-care (01) ==
LOC: HO.LAB 07:49
PROVIDERS: PCP Internal Medicine; Visit Provider Internal Medicine
DX: E11.9 Type 2 diabetes mellitus without complications (principal); R79.89 Other specified abnormal findings of blood chemistry; E78.00 Pure hypercholesterolemia, unspecified; R30.0 Dysuria; E55.9 Vitamin D deficiency, unspecified; I10 Essential (primary) hypertension
CPT/HCPCS: 36415; 80053; 80061; 81003; 82306; 82570; 83036; 84402; 84403; 84443; 85025

== ENCOUNTER 2023-01-28 16:49 | Outpatient (AMB) | payer OTHER, SELFPAY ==
[2023-01-28 16:50] VITALS: BP 120/82; PULSE 88; O2SAT 97; BMI 24.7
--- NOTE | 2023-01-28 16:50 | A.OFFPC_ITS ---
Vital Signs 01/28/23 16:50 Height 5 ft 6 in Weight 153 lb BMI 24.7 BP 120/82 Blood Pressure Location Lt brachial Position Sitting Pulse 88 Pulse Source Pulse Oximeter Pulse Oximetry (%) 97 Oxygen Delivery Method Room Air Intake Visit Reasons: DM, hyperlipidemia, hypotestosteronism Screen Tender Helper Required: No Accompanied by: Self / Same As Patient Allergies Iodinated Contrast Media [IV Dye, Iodine Containing] Allergy (Severe, Verified 01/28/23 17:18) ANAPHYLAXIS aspirin [Aspirin] Allergy (Mild, Verified 01/28/23 17:18) ITCHING ibuprofen [Ibuprofen] Allergy (Mild, Verified 01/28/23 17:18) NAUSEA Penicillins Allergy (Mild, Verified 01/28/23 17:18) ITCHING/SWELLING Gadolinium-Containing Contrast Medi [GADOLINIUM-CONTAINING CONTRAST] Allergy (Unknown, Verified 01/28/23 17:18) UNKNOWN iodine [IODINE] Allergy (Unknown, Verified 01/28/23 17:18) UNKNOWN morphine [MORPHINE] Allergy (Unknown, Verified 01/28/23 17:18) TACHYCARDIA oxycodone [From PERCOCET] Allergy (Unknown, Verified 01/28/23 17:18) N/V,H/A Sulfa (Sulfonamide Antibiotics) [SULFA (SULFONAMIDE ANTIBIOTICS)] Allergy (Unknown, Verified 01/28/23 17:18) UNKNOWN Medication List - Last Reconciled 01/28/23 by Madi Amos MD blood sugar diagnostic (FreeStyle Lite Strips) USE LAN LO INDICADO DOS VECES AL MARTÍN blood-glucose meter (FreeStyle Lite Meter kit) As directed cetirizine 10 mg PO DAILY PRN 90 days cholecalciferol (vitamin D3) 25 mcg PO DAILY 90 days clonazepam 1 mg PO BID PRN 30 days clotrimazole-betamethasone 1-0.05 % 1 appl topical BID 4 weeks [DIABETIC SHOES As directed] fluticasone propionate 50 mcg/actuation 1 spray intranasal DAILY lancets (FreeStyle Lancets) As directed-CHECK BLOOD SUGAR TWICE A DAY - Dx: E11.9 loratadine 10 mg PO DAILY PRN 90 days metformin 500 mg PO BID mometasone 0.1% 1 appl topical DAILY PRN testosterone cypionate 200 mg IM Q4W 28 days testosterone cypionate 200 mg IM .qo week Tobacco use date assessed: 01/28/23 Dental Screening Dental Screen Date: 01/28/23 Did you have a dental visit in the last 12 months?: Yes Did you have a dental problem in the last 6 months where you did not have access to dental care?: No Was dental information given to patient?: Patient has dentist HPI DM, hyperlipidemia, hypotestosteronism HPI Details Patient comes in today for his follow up visit States that he feels okay He denies any headaches or dizziness Denies any chest pains, no SOB No nausea/vomiting, no abdominal pain No change in bowel habits noted He has reportedly had at least a couple of episodes over the past few weeks wherein he would start experiencing sudden onset of flushing / hot sensation followed by the need to quickly pull off his clothes as he finds it hard to tolerate or breathe and only after pulling his clothes off will he slowly start to experience some relief Had his follow up labs done last week - to discuss his results [facility] Medical History LEIA (obstructive sleep apnea) Snoring Retrognathia Somnolence, daytime ILD (interstitial lung disease) Abnormal chest xray Chest pain Hx of flexible sigmoidoscopy IBS (irritable bowel syndrome) Arthritis Cigar smoker Anxiety Vitamin D deficiency Renal calculi Allergic rhinitis Mixed dyslipidemia Diabetes mellitus Right hip pain Right shoulder pain Hypotestosteronism Swelling of left hand Left hand pain Surgical History Hx of cystoscopy Hx laparoscopic cholecystectomy History of testicular surgery History of colonoscopy History of lithotripsy Family History Father Prostate cancer Mother Hypertension Hypercholesterolemia Brother Hypertension Diabetes Social History Housing: Apartment Alcohol intake: never Patient Tobacco Use Status: Former Tobacco user Tobacco use type: Cigar Cigarettes Per Day: 3 Years Smoked: pt states quit 01/2022 e-Cigarette/Vaping Use: Never Used Second Hand Smoke Exposure: Yes Advance Directives Date on File: 11/07/14 service: No Current occupational status: disabled Cognitive needs: No Hearing needs: No Vision needs: Yes Questionnaire PHQ-9 Over the last 2 weeks, how often have you been bothered by any of the following problems? 1. Little interest or pleasure in doing things: not at all 2. Feeling down, depressed, or hopeless: not at all 3. Trouble falling or staying asleep, or sleeping too much: not at all 4. Feeling tired or having little energy: not at all 5. Poor appetite or overeating: not at all 6. Feeling bad about yourself - or that you are a failure or have let yourself or your family down: not at all 7. Trouble concentrating on things, such as reading the newspaper or watching television: not at all 8. Moving or speaking so slowly that other people could have noticed. Or the opposite - being so fidgety or restless that you have been moving around a lot more than usual: not at all 9. Thoughts that you would be better off or of hurting yourself in some way: not at all Total score: 0 Depression Screening Interpretation: Negative Depression Screening Done: Yes 00694 - PHQ-9 Billing: Yes Source: Developed by Drs. Onesimo Swenson, Juana Giordano, Spencer Swan and colleagues, with an educational cesar from [employer]. Thrive Questionnaire Date Thrive assessed: 01/28/23 I am a: Patient What is your living situation today?: I have a steady place to live Within the past 12 months, did the food you bought not last and you didn't have the money to get more?: Never true Within the past 12 months, did you worry whether your food would run out before you got money to buy more?: Never true Do you have trouble paying for medicines?: No Do you have trouble getting transportation to medical appointments?: No Do you have trouble paying your heating and electricity bill?: No Do you have trouble taking care of your child, family member or friend?: No Do you have trouble with day-to-day activities such as bathing, preparing meals, shopping, managing finances, etc.?: No Are you currently unemployed and looking for a job?: No Are you interested in more education?: No Please select the resources that you would like help with: None Currently or been in a relationship where the following occur: no concerns reported AUDIT C Alcohol Use Questionnaire (AUDIT-C) 1. How often do you have a drink containing alcohol?: Never 3. How often do you have six or more drinks on one occasion?: Never Total Score: 0 Score Reviewed/Action Taken: Yes MALIK-7 AMB Questionnaire MALIK-7 Date MALIK - 7 assessed: 01/28/23 Feeling nervous, anxious, or on edge: 0 = Not at all Not being able to stop or control worryin = Not at all Worrying too much about different things: 0 = Not at all Trouble relaxin = Not at all Being so restless that it is hard to sit still: 0 = Not at all Becoming easily annoyed or irritable: 0 = Not at all Feeling afraid as if something awful might happen: 0 = Not at all Total MALIK-7 score (0-4 normal; 5-9 mild; 10-14 moderate; 15-21 severe): 0 Source: Developed by Drs. Onesimo Swenson, Juana Giordano, Spencer Swan and colleagues, with an educational cesar from [employer]. Review of Systems Const Denies difficulty sleeping, Reports fatigue, Denies fever(s) and Denies headache(s) ENT Denies dysphagia, Denies dizziness, Denies otalgia, Denies headache(s), Denies neck pain, Denies odynophagia and Denies sore throat Card Denies chest pain, Denies palpitations and Denies dyspnea Resp Denies cough, Denies dyspnea and Denies wheezing GI Denies abdominal pain, Denies constipation, Denies dysphagia, Denies heartburn, Denies diarrhea, Reports loose stools (at times (S/P cholecystectomy) ), Denies nausea, Denies odynophagia and Denies vomiting Denies dysuria, Denies nocturia and Denies urinary frequency Musc Reports arthralgias (over the right hip and in both hands, on and off) and Denies neck pain Skin/Breast Denies rash Neuro Denies dizziness and Denies headache(s) Psych Reports anxiety (appears to be increasing based on his recent episodes - see HPI) Endo Reports fatigue and Denies palpitations Aller/Immun Denies wheezing Physical exam (Primary Care) Vital Signs: Last Vital Signs Pulse 88 01/28/23 16:50 BP 120/82 01/28/23 16:50 Pulse Ox 97 01/28/23 16:50 Oxygen Delivery Method Room Air 01/28/23 16:50 BMI result Body Mass Index 24.7 Tobacco/Smoking Status: Tobacco use Status Tobacco use date assessed 01/28/23 01/28/23 16:52 Patient Tobacco Use Status Former Tobacco user 01/28/23 16:52 Tobacco use type Cigar 01/28/23 16:52 e-Cigarette/Vaping Use Never Used 01/28/23 16:52 PHQ-9: PHQ-9 Score PHQ-9: Total score 0 01/28/23 17:23 Depression Screening Interpretation: Negative Thrive Assessment: Date of Thrive Assessment Date Thrive assessed 01/28/23 01/28/23 16:52 Currently or been in a relationship where the following occur: no concerns reported Const General: no acute distress and alert HENMT Ears: TM's normal bilaterally and EAC's normal Throat: Yes posterior oropharynx normal and Yes tonsils normal (no TP congestion) Neck Neck: Yes no lymphadenopathy and Yes supple Resp Auscultation: clear to auscultation bilaterally, no rales and no wheezes Cardio Rate: regular rate Rhythm: regular rhythm Heart sounds: no murmurs GI Palpation (GI): Soft to palpation and nontender Auscultation: normal bowel sounds Skin Rashes: no rashes Extrem General: Yes no clubbing, cyanosis or edema Right lower extremity: hip/thigh Details: tenderness Location: of the hip Results Reviewed Results Reviewed: Laboratory Tests 01/23/23 01/23/23 01/23/23 08:08 08:11 08:11 WBC 8.6 Hgb 14.5 Hct 42.5 Plt Count 282 Sodium 138 Potassium 4.1 Creatinine 0.98 Estimated GFR > 60 Fasting Glucose 110 H Hemoglobin A1c % 5.9 Calcium 9.9 AST 26 ALT 41 H Triglycerides 139 Cholesterol 188 LDL Cholesterol, Calc 122 H HDL Cholesterol 39 L 25-OH Vitamin D Total 53.3 TSH 3.25 Ur Specific [place] 1.015 Urine Protein Negative Urine Glucose (UA) Negative Urine Blood Negative Laboratory Tests 10/07/22 06:50 Hemoglobin A1c % 6.0 Triglycerides 290 Cholesterol 156 LDL Cholesterol, Calc 71 HDL Cholesterol 27 Assessment and Plan Assessment & Plan (1) Diabetes mellitus: Comment: taking metformin Code(s): E11.9 - Type 2 diabetes mellitus without complications Qualifiers: Diabetes mellitus complication status: without complication Diabetes mellitus skilled nursing insulin use: without skilled nursing use Diabetes mellitus type: type 2 Qualified Code(s): E11.9 - Type 2 diabetes mellitus without complicatio ns Plan: HgbA1c is at 5.9% on his labs done last week; was at 6.0% a few months ago - goal is < 7.0% Reinforced diabetic diet Continue Metformin 500 mg BID (2) Mixed dyslipidemia: Code(s): E78.2 - Mixed hyperlipidemia Plan: Results of his labs done last week reviewed and discussed with patient - advised that his LDL cholesterol has increased slightly from previous; his serum TG level has improved significantly from previous Reinforced low cholesterol diet Will recheck his labs and fasting lipids in 3 months for follow-up (3) ILD (interstitial lung disease): Comment: History of smoking cigars. CT scan changes of chronic interstitial lung disease/ most likely pulmonary fibrosis. The patient is almost asymptomatic except for mild intermittent cough. Patient does not need any bronchodilator inhalers. Code(s): J84.9 - Interstitial pulmonary disease, unspecified Plan: Has ARORA at times but symptoms are mostly mild States that he has finally been able to quit smoking completely and he has been smoke-free for a year now Follow up with pulmonary (Dr. Rojas) as scheduled (4) Daytime somnolence: Code(s): R40.0 - Somnolence Plan: Recently had a Home Sleep Study done last month, which was negative for sleep apnea although he had some nocturnal hypoxemia, which Dr. Rojas is attributing to his retrognathia He has been advised to avoid sleeping in a supine position Follow up with Sleep Medicine as scheduled (5) Allergic rhinitis: Comment: Chronic nasal congestion and postnasal discharge, secondary to allergic rhinitis. Controlled and may use loratadine 10 mg PRN . He told me that at present he is not using any medication for his nose. Code(s): J30.9 - Allergic rhinitis, unspecified Qualifiers: Allergic rhinitis seasonality: unspecified Allergic rhinitis trigger: unspecified Qualified Code(s): J30.9 - Allergic rhinitis, unspecified Plan: Continue Cetirizine 10 mg QD PRN and Fluticasone 50 mcg nasal spray QD PRN Takes Loratadine 10 mg QD PRN if his symptoms are milder (6) Hypotestosteronism: Code(s): E34.9 - Endocrine disorder, unspecified Plan: Continue Testosterone injections 200 mg every 4 weeks Repeat serum testosterone level done last week are still pending; his results previously came back normal/ high normal Will continue to monitor his serum testosterone level regularly (7) Vitamin D deficiency: Code(s): E55.9 - Vitamin D deficiency, unspecified Plan: Continue Vitamin D3 1000 units QD (8) Loose stools: Code(s): R19.5 - Other fecal abnormalities Plan: Advised that his recent loose stools are most likely related to his post- cholecystectomy status Reminded that since he no longer has a gall bladder, he should avoid eating and greasy, oily or fried foods or he will get diarrhea and loose stools as a result (9) Renal calculi: Comment: S/P ESWL last year Code(s): N20.0 - Calculus of kidney Plan: Patient has been asymptomatic lately Follow up with urology as scheduled (10) Anxiety: Code(s): F41.9 - Anxiety disorder, unspecified Plan: He appears to be experiencing some flushing symptoms lately that are consistent with increased anxiety bordering on panic attacks Continue Clonazepam 1 mg 1 to 2 tablets BID PRN Will start him on Sertraline 50 mg Q AM Plan Follow up in 3 months Orders: Orders Comprehensive [place]. Panel Fast 3 Months E78.00 - Pure hypercholesterolemia, unspecified Lipid Panel 3 Months E78.00 - Pure hypercholesterolemia, unspecified Microalbumin, Random (w Creat) 3 Months E11.9 - Type 2 diabetes mellitus without complications Hemoglobin A1c 3 Months E11.9 - Type 2 diabetes mellitus without complications UA CC w/rflx Micro + Cult 3 Months R30.0 - Dysuria Testosterone, Free/Total 3 Months R79.89 - Other specified abnormal findings of blood chemistry Complete Blood Count Auto Diff 3 Months I10 - Essential (primary) hypertension TSH reflex Free T4 3 Months E78.00 - Pure hypercholesterolemia, unspecified Vitamin D 25-OH Total 3 Months E55.9 - Vitamin D deficiency, unspecified Medications: New sertraline 50 mg PO DAILY 30 days 30 tabs 3RF anxiety F41.9 - Anxiety disorder, unspecified Coding Level of Care Code Est Pt Level 4 (54005) Diagnoses Type 2 diabetes mellitus without complication, without long-term current use of insulin E11.9 Diabetes mellitus complication status: without complication Diabetes mellitus skilled nursing insulin use: without skilled nursing use Diabetes mellitus type: type 2 Mixed dyslipidemia E78.2 ILD (interstitial lung disease) J84.9 Daytime somnolence R40.0 Allergic rhinitis, unspecified seasonality, unspecified trigger J30.9 Allergic rhinitis seasonality: unspecified Allergic rhinitis trigger: unspecified Hypotestosteronism E34.9 Vitamin D deficiency E55.9 Loose stools R19.5 Renal calculi N20.0 Anxiety F41.9
== END 2023-01-28 17:43 | disposition home or self-care (01) ==
PROVIDERS: PCP Internal Medicine; Visit Provider Internal Medicine
DX: E11.9 Type 2 diabetes mellitus without complications (principal); J84.9 Interstitial pulmonary disease, unspecified; J30.9 Allergic rhinitis, unspecified; N20.0 Calculus of kidney; F41.9 Anxiety disorder, unspecified; E78.2 Mixed hyperlipidemia; E34.9 Endocrine disorder, unspecified; E55.9 Vitamin D deficiency, unspecified; R19.5 Other fecal abnormalities
CPT/HCPCS: 99214

== ENCOUNTER 2023-05-02 08:44 | Outpatient (REF) | payer OTHER, SELFPAY ==
[2023-05-02 09:04] LABS: MANUAL DIFF FLAG NO
[2023-05-02 09:09] LABS: Basophils Absolute Auto 0.1 X10*3/uL (0.0-0.2); Basophils Percent Auto 0.6 % (0-2); Eosinophils Absolute Auto 0.6 X10*3/uL (0.0-0.4); Eosinophils Percent Auto 7.2 % (0-4); Hematocrit 40.8 % (42.0-52.0); Hemoglobin 13.9 g/dl (14.0-18.0); Imm Gran Abs Auto 0.03 X10*3/uL (0.00-0.03); Imm Gran Pct Auto 0.4 % (0.0-0.4); Mean Corpuscular HGB Conc 34.1 g/dl (31.0-36.0); Mean Corpuscular Hemoglobin 29.8 pg (27.0-33.0); Mean Corpuscular Volume 87.6 fL (80.0-98.0); Mean Platelet Volume 9.5 fL (9.4-12.4); Monocytes Absolute Auto 0.6 X10*3/uL (0.1-1.2); Monocytes Percent Auto 7.5 % (2-11); Neutrophils Absolute Auto 3.7 x10*3/uL (2.0-8.3); Neutrophils Percent Auto 46.3 % (45-73); Platelet Count 274 X10*3/uL (160-400); Red Blood Count 4.66 X10*6/uL (4.60-5.80); Red Cell Distribution Width 12.8 % (11.0-16.0); White Blood Count 7.9 X10*3/uL (4.8-10.8)
[2023-05-02 09:35] LABS: Estimated Average Glucose 117 mg/dL; Hemoglobin A1c % 5.7 % (<6.0)
[2023-05-02 09:46] LABS: Alanine Aminotransferase 55 U/L (0-40); Albumin Level 4.1 g/dL (3.5-5.0); Alkaline Phosphatase 35 U/L (39-117); Anion Gap 11 (12-20); Aspartate Amino Transferase 31 U/L (5-37); Bilirubin Total 0.4 mg/dL (0.0-1.0); Blood Urea Nitrogen 22 mg/dL (9-16); Calcium 9.9 mg/dL (8.4-10.2); Carbon Dioxide 29 mmol/L (22-29); Chloride 104 mmol/L (96-108); Cholesterol 182 mg/dL (<200); Estimated Glomerular Filt Rate > 60; Glucose Fasting 107 mg/dL (60-99); HDL Cholesterol 37 mg/dL (>40); LDL Cholesterol Calculated 115 mg/dL (<100); Potassium 4.3 mmol/L (3.3-5.1); Sodium 140 mmol/L (135-145); Total Protein 7.5 g/dL (6.5-8.0); Triglycerides 150 mg/dL (<150)
[2023-05-02 10:01] LABS: Appearance Urine Clear; Color Urine Yellow; Glucose Urine UA Negative (Negative); Leukocyte Esterase Urine Negative (Negative); Nitrite Urine Negative (Negative); PH 5.5 (5.0-9.0); Specific Gravity - Urine 1.015 (1.005-1.025); Urine Blood Negative (Negative); Urine Ketones Negative (Negative); Urine Protein Negative (Neg-Trace)
[2023-05-02 10:03] LABS: TSH reflex Free T4 2.09 uIU/mL (0.32-4.0); Vitamin D 25-OH Total 46.8 ng/mL (>30)
[2023-05-02 11:21] LABS: Microalbumin Urine < 5.0 mg/L
[2023-05-09 10:44] LABS: Testosterone, Free 1.7 pg/mL (35.0-155.0); Testosterone, Total 11 ng/dL (250-1100)
== END 2023-05-02 08:45 | disposition home or self-care (01) ==
LOC: HO.LAB 08:44
PROVIDERS: PCP Internal Medicine; Visit Provider Internal Medicine
DX: E78.00 Pure hypercholesterolemia, unspecified (principal); E55.9 Vitamin D deficiency, unspecified; R30.0 Dysuria; E11.9 Type 2 diabetes mellitus without complications; I10 Essential (primary) hypertension; R79.89 Other specified abnormal findings of blood chemistry
CPT/HCPCS: 36415; 80053; 80061; 81003; 82043; 82306; 82570; 83036; 84402; 84403; 84443; 85025

== ENCOUNTER 2023-05-07 15:44 | Outpatient (AMB) | payer OTHER, SELFPAY ==
[2023-05-07 15:46] VITALS: BP 116/80; PULSE 84; O2SAT 95; BMI 24.9
--- NOTE | 2023-05-07 15:46 | A.OFFPC_ITS ---
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 Accompanied by: Self / Same As Patient Allergies Iodinated Contrast Media [IV Dye, Iodine Containing] Allergy (Severe, Verified 05/07/23 16:39) ANAPHYLAXIS aspirin [Aspirin] Allergy (Mild, Verified 05/07/23 16:39) ITCHING ibuprofen [Ibuprofen] Allergy (Mild, Verified 05/07/23 16:39) NAUSEA Penicillins Allergy (Mild, Verified 05/07/23 16:39) ITCHING/SWELLING Gadolinium-Containing Contrast Medi [GADOLINIUM-CONTAINING CONTRAST] Allergy (Unknown, Verified 05/07/23 16:39) UNKNOWN iodine [IODINE] Allergy (Unknown, Verified 05/07/23 16:39) UNKNOWN morphine [MORPHINE] Allergy (Unknown, Verified 05/07/23 16:39) TACHYCARDIA oxycodone [From PERCOCET] Allergy (Unknown, Verified 05/07/23 16:39) N/V,H/A Sulfa (Sulfonamide Antibiotics) [SULFA (SULFONAMIDE ANTIBIOTICS)] Allergy (Unknown, Verified 05/07/23 16:39) UNKNOWN Medication List - Last Reconciled 05/07/23 by Madi Amos MD blood sugar diagnostic (FreeStyle Lite Strips) USE LAN LO INDICADO DOS VECES AL MARTÍN blood-glucose meter (FreeStyle Lite Meter kit) As directed cetirizine 10 mg PO DAILY PRN 90 days cholecalciferol (vitamin D3) 25 mcg PO DAILY 90 days clonazepam 1 mg PO BID PRN 30 days clotrimazole-betamethasone 1-0.05 % 1 appl topical BID 4 weeks [DIABETIC SHOES As directed] fluticasone propionate 50 mcg/actuation 1 spray intranasal DAILY lancets (FreeStyle Lancets) As directed-CHECK BLOOD SUGAR TWICE A DAY - Dx: E11.9 loratadine 10 mg PO DAILY PRN 90 days metformin 500 mg PO BID 3 months mometasone 0.1% 1 appl topical DAILY PRN testosterone cypionate 200 mg IM Q4W 28 days testosterone cypionate 200 mg IM .qo week Tobacco use date assessed: 05/07/23 Dental Screening Dental Screen Date: 05/07/23 Did you have a dental visit in the last 12 months?: Yes Did you have a dental problem in the last 6 months where you did not have access to dental care?: No Was dental information given to patient?: Patient has dentist HPI hyperlipidemia, DM, hypotestosteronism, anxiety HPI Details Patient comes in today for his follow-up visit States that he feels okay but has been experiencing a frequent sensation of food getting stuck in his throat every time he swallows something States that this has been going on for a couple of weeks now He denies any recent sore throat or fever; denies any recent cough/cold symptoms He denies any headaches or dizziness Denies any chest pains, no shortness of breath No nausea/vomiting, no abdominal pain No change in bowel habits noted Had his follow-up labs done a few days ago - to discuss his results Recalls that his testosterone level was again low on his previous lab results and would like to try starting back on his testosterone injections of ap propriate [facility] Medical History LEIA (obstructive sleep apnea) Snoring Retrognathia Somnolence, daytime ILD (interstitial lung disease) Abnormal chest xray Chest pain Hx of flexible sigmoidoscopy IBS (irritable bowel syndrome) Arthritis Cigar smoker Anxiety Vitamin D deficiency Renal calculi Allergic rhinitis Mixed dyslipidemia Diabetes mellitus Right hip pain Right shoulder pain Hypotestosteronism Swelling of left hand Left hand pain Surgical History Hx of cystoscopy Hx laparoscopic cholecystectomy History of testicular surgery History of colonoscopy History of lithotripsy Family History Father Prostate cancer Mother Hypertension Hypercholesterolemia Brother Hypertension Diabetes Social History Housing: Apartment Alcohol intake: never Patient Tobacco Use Status: Former Tobacco user Tobacco use type: Cigar Cigarettes Per Day: 3 Years Smoked: pt states quit 01/2022 e-Cigarette/Vaping Use: Never Used Second Hand Smoke Exposure: Yes Advance Directives Date on File: 11/07/14 service: No Current occupational status: disabled Cognitive needs: No Hearing needs: No Vision needs: Yes Questionnaire PHQ-9 Over the last 2 weeks, how often have you been bothered by any of the following problems? 1. Little interest or pleasure in doing things: not at all 2. Feeling down, depressed, or hopeless: not at all 3. Trouble falling or staying asleep, or sleeping too much: not at all 4. Feeling tired or having little energy: not at all 5. Poor appetite or overeating: not at all 6. Feeling bad about yourself - or that you are a failure or have let yourself or your family down: not at all 7. Trouble concentrating on things, such as reading the newspaper or watching television: not at all 8. Moving or speaking so slowly that other people could have noticed. Or the opposite - being so fidgety or restless that you have been moving around a lot more than usual: not at all 9. Thoughts that you would be better off or of hurting yourself in some way: not at all Total score: 0 Depression Screening Interpretation: Negative Depression Screening Done: Yes 68455 - PHQ-9 Billing: Yes Source: Developed by Drs. Onesimo Swenson, Juana Giordano, Spencer Swan and colleagues, with an educational cesar from [employer]. Thrive Questionnaire Date Thrive assessed: 05/07/23 I am a: Patient What is your living situation today?: I have a steady place to live Within the past 12 months, did the food you bought not last and you didn't have the money to get more?: Never true Within the past 12 months, did you worry whether your food would run out before you got money to buy more?: Never true Do you have trouble paying for medicines?: No Do you have trouble getting transportation to medical appointments?: No Do you have trouble paying your heating and electricity bill?: No Do you have trouble taking care of your child, family member or friend?: No Do you have trouble with day-to-day activities such as bathing, preparing meals, shopping, managing finances, etc.?: No Are you currently unemployed and looking for a job?: No Are you interested in more education?: No Please select the resources that you would like help with: None Currently or been in a relationship where the following occur: no concerns r eported THRIVE Score: 0 AUDIT C Alcohol Use Questionnaire (AUDIT-C) 1. How often do you have a drink containing alcohol?: Never 3. How often do you have six or more drinks on one occasion?: Never Total Score: 0 Score Reviewed/Action Taken: Yes MALIK-7 AMB Questionnaire MALIK-7 Date MALIK - 7 assessed: 05/07/23 Feeling nervous, anxious, or on edge: 0 = Not at all Not being able to stop or control worryin = Not at all Worrying too much about different things: 0 = Not at all Trouble relaxin = Not at all Being so restless that it is hard to sit still: 0 = Not at all Becoming easily annoyed or irritable: 0 = Not at all Feeling afraid as if something awful might happen: 0 = Not at all Total MALIK-7 score (0-4 normal; 5-9 mild; 10-14 moderate; 15-21 severe): 0 Source: Developed by Drs. Onesimo Swenson, Juana Giordano, Spencer Swan and colleagues, with an educational cesar from [employer]. Review of Systems Const Denies difficulty sleeping, Reports fatigue, Denies fever(s) and Denies headache(s) ENT Denies dysphagia (but recurrent sensation of food getting stuck in his throat), Denies dizziness, Denies otalgia, Denies headache(s), Denies neck pain, Denies odynophagia and Denies sore throat Card Denies chest pain, Denies palpitations and Denies dyspnea Resp Denies cough, Denies dyspnea and Denies wheezing GI Denies abdominal pain, Denies constipation, Denies dysphagia (but recurrent sensation of food getting stuck in his throat), Denies heartburn, Denies diarrhea, Reports loose stools (at times (S/P cholecystectomy) ), Denies nausea, Denies odynophagia and Denies vomiting Denies dysuria, Denies nocturia and Denies urinary frequency Musc Reports arthralgias (over the right hip and in both hands, on and off) and Denies neck pain Skin/Breast Denies rash Neuro Denies dizziness and Denies headache(s) Psych Reports anxiety Endo Reports fatigue and Denies palpitations Aller/Immun Denies wheezing Physical exam (Primary Care) Vital Signs: Last Vital Signs Pulse 84 05/07/23 15:46 BP 116/80 05/07/23 15:46 Pulse Ox 95 05/07/23 15:46 Oxygen Delivery Method Room Air 05/07/23 15:46 BMI result Body Mass Index 24.9 Tobacco/Smoking Status: Tobacco use Status Tobacco use date assessed 05/07/23 05/07/23 15:48 Patient Tobacco Use Status Former Tobacco user 05/07/23 15:48 Tobacco use type Cigar 05/07/23 15:48 e-Cigarette/Vaping Use Never Used 05/07/23 15:48 PHQ-9: PHQ-9 Score PHQ-9: Total score 0 05/07/23 16:40 Depression Screening Interpretation: Negative Thrive Assessment: Date of Thrive Assessment Date Thrive assessed 05/07/23 05/07/23 15:48 Currently or been in a relationship where the following occur: no concerns reported Const General: no acute distress and alert HENMT Ears: TM's normal bilaterally and EAC's normal Throat: Yes posterior oropharynx normal and Yes tonsils normal (no TP congestion) Neck Neck: Yes no lymphadenopathy and Yes supple Resp Auscultation: clear to auscultation bilaterally, no rales and no wheezes Cardio Rate: regular rate Rhythm: regular rhythm Heart sounds: no murmurs GI Palpation (GI): Soft to palpation and nontender Auscultation: normal bowel sounds Skin Rashes: no rashes Extrem General: Yes no clubbing, cyanosis or edema Right lower extremity: hip/thigh Details: tenderness Location: of the hip Results Reviewed Results Reviewed: Laboratory Tests 05/02/23 09:03 WBC 7.9 Hgb 13.9 L Hct 40.8 L Plt Count 274 Creatinine 1.17 Estimated GFR > 60 Fasting Glucose 107 H Hemoglobin A1c % 5.7 Calcium 9.9 AST 31 ALT 55 H Triglycerides 150 H Cholesterol 182 LDL Cholesterol, Calc 115 H HDL Cholesterol 37 L 25-OH Vitamin D Total 46.8 TSH 2.09 Assessment and Plan Assessment & Plan (1) Diabetes mellitus: Comment: taking metformin Code(s): E11.9 - Type 2 diabetes mellitus without complications Qualifiers: Diabetes mellitus complication status: without complication Diabetes mellitus chcf insulin use: without terminal operations manager use Diabetes mellitus type: type 2 Qualified Code(s): E11.9 - Type 2 diabetes mellitus without complications Plan: HgbA1c is at 5.7% on his labs done a few days ago; was at 5.9% a few months ago - goal is < 7.0% Reinforced diabetic diet Continue Metformin 500 mg BID (2) Mixed dyslipidemia: Code(s): E78.2 - Mixed hyperlipidemia Plan: Results of his labs done a few days ago reviewed and discussed with patient Reinforced low cholesterol diet Will recheck his labs and fasting lipids in 3 months for follow-up (3) ILD (interstitial lung disease): Comment: History of smoking cigars. CT scan changes of chronic interstitial lung disease/ most likely pulmonary fibrosis. The patient is almost asymptomatic except for mild intermittent cough. Patient does not need any bronchodilator inhalers. Code(s): J84.9 - Interstitial pulmonary disease, unspecified Plan: Has ARORA at times but symptoms are mostly mild Follow up with pulmonary (Dr. Rojas) as scheduled (4) Dysphagia: Code(s): R13.10 - Dysphagia, unspecified Qualifiers: Dysphagia type: unspecified Qualified Code(s): R13.10 - Dysphagia, unspecified Plan: Will send patient for a barium swallow for further evaluation of his recent swallowing symptoms (5) Daytime somnolence: Code(s): R40.0 - Somnolence Plan: Patient had a Home Sleep Study done last year, which was negative for sleep apnea although he had some nocturnal hypoxemia, which Dr. Rojas is attributing to his retrognathia He has been advised to avoid sleeping in a supine position Follow up with Sleep Medicine as scheduled (6) Allergic rhinitis: Comment: Chronic nasal congestion and postnasal discharge, secondary to allergic rhinitis. Controlled and may use loratadine 10 mg PRN . He told me that at present he is not using any medication for his nose. Code(s): J30.9 - Allergic rhinitis, unspecified Qualifiers: Allergic rhinitis seasonality: unspecified Allergic rhinitis trigger: unspecified Qualified Code(s): J30.9 - Allergic rhinitis, unspecified Plan: Continue Cetirizine 10 mg QD PRN and Fluticasone 50 mcg nasal spray QD PRN Takes Loratadine 10 mg QD PRN if his symptoms are milder (7) Hypotestosteronism: Code(s): E34.9 - Endocrine disorder, unspecified Plan: Patient's testosterone level came back low again when last checked a few months ago Will try starting him back on Testosterone injections 200 mg every 4 weeks - Rx sent to pharmacy Will continue to monitor his serum testosterone level regularly (8) Vitamin D deficiency: Code(s): E55.9 - Vitamin D deficiency, unspecified Plan: Continue Vitamin D3 1000 units QD (9) Loose stools: Code(s): R19.5 - Other fecal abnormalities Plan: Advised that his on and off loose stools are most likely related to his post- cholecystectomy status Reminded again that since he no longer has a gall bladder, he should avoid eating and greasy, oily or fried foods or he will get diarrhea and loose stools as a result (10) Renal calculi: Comment: S/P ESWL last year Code(s): N20.0 - Calculus of kidney Plan: Patient has been asymptomatic lately Follow up with urology as scheduled (11) Anxiety: Code(s): F41.9 - Anxiety disorder, unspecified Plan: Continue Clonazepam 1 mg 1 to 2 tablets BID PRN We tried starting him on Sertraline 50 mg Q AM at his last visit but he did not feel that he needed to continue on it and stopped taking it Plan Follow up in 3 months Orders: Orders Lipid Panel 3 Months E78.00 - Pure hypercholesterolemia, unspecified [place] barium swallow Today R13.10 - Dysphagia, unspecified Comprehensive [place]. Panel Fast 3 Months E78.00 - Pure hypercholesterolemia, unspecified Testosterone, Free/Total 3 Months R79.89 - Other specified abnormal findings of blood chemistry Hemoglobin A1c 3 Months E11.9 - Type 2 diabetes mellitus without complications Complete Blood Count Auto Diff 3 Months D64.9 - Anemia, unspecified TSH reflex Free T4 3 Months E78.00 - Pure hypercholesterolemia, unspecified UA CC w/rflx Micro + Cult 3 Months R30.0 - Dysuria Vitamin D 25-OH Total 3 Months E55.9 - Vitamin D deficiency, unspecified Medications: Refilled testosterone cypionate 200 mg IM Q4W 1 mL 2RF 28 days E34.9 - Endocrine disorder, unspecified Coding Level of Care Code Est Pt Level 4 (78955) Diagnoses Type 2 diabetes mellitus without complication, without long-term current use of insulin E11.9 Diabetes mellitus complication status: without complication Diabetes mellitus chcf insulin use: without terminal operations manager use Diabetes mellitus type: type 2 Mixed dyslipidemia E78.2 ILD (interstitial lung disease) J84.9 Dysphagia, unspecified type R13.10 Dysphagia type: unspecified Daytime somnolence R40.0 Allergic rhinitis, unspecified seasonality, unspecified trigger J30.9 Allergic rhinitis seasonality: unspecified Allergic rhinitis trigger: unspecified Hypotestosteronism E34.9 Vitamin D deficiency E55.9 Loose stools R19.5 Renal calculi N20.0 Anxiety F41.9
== END 2023-05-07 16:44 | disposition home or self-care (01) ==
PROVIDERS: PCP Internal Medicine; Visit Provider Internal Medicine
DX: E11.9 Type 2 diabetes mellitus without complications (principal); E78.2 Mixed hyperlipidemia; J84.9 Interstitial pulmonary disease, unspecified; R13.10 Dysphagia, unspecified; R40.0 Somnolence; J30.9 Allergic rhinitis, unspecified; E34.9 Endocrine disorder, unspecified; E55.9 Vitamin D deficiency, unspecified; R19.5 Other fecal abnormalities; N20.0 Calculus of kidney; F41.9 Anxiety disorder, unspecified
CPT/HCPCS: 99214

== ENCOUNTER 2023-07-16 14:28 | Outpatient (AMB) | payer OTHER, SELFPAY ==
[2023-07-16 14:31] VITALS: BP 108/66; PULSE 86; O2SAT 95; BMI 25.0
--- NOTE | 2023-07-16 14:31 | A.OFFPC_ITS ---
Vital Signs 07/16/23 14:31 Height 5 ft 6 in Weight 155 lb 0.8 oz BMI 25.0 BP 108/66 Blood Pressure Location Lt brachial Position Sitting Pulse 86 Pulse Source Pulse Oximeter Pulse Oximetry (%) 95 Oxygen Delivery Method Room Air Intake Visit Reasons: Low BP, Cardiac Testing Intake Note: patient c/o of low BP readings at home as well as body pain. patient c/o of hand bilateral hand pain Knotter Hand Required: No Allergies Iodinated Contrast Media [IV Dye, Iodine Containing] Allergy (Severe, Verified 07/16/23 15:19) ANAPHYLAXIS aspirin [Aspirin] Allergy (Mild, Verified 07/16/23 15:19) ITCHING ibuprofen [Ibuprofen] Allergy (Mild, Verified 07/16/23 15:19) NAUSEA Penicillins Allergy (Mild, Verified 07/16/23 15:19) ITCHING/SWELLING Gadolinium-Containing Contrast Medi [GADOLINIUM-CONTAINING CONTRAST] Allergy (Unknown, Verified 07/16/23 15:19) UNKNOWN iodine [IODINE] Allergy (Unknown, Verified 07/16/23 15:19) UNKNOWN morphine [MORPHINE] Allergy (Unknown, Verified 07/16/23 15:19) TACHYCARDIA oxycodone [From PERCOCET] Allergy (Unknown, Verified 07/16/23 15:19) N/V,H/A Sulfa (Sulfonamide Antibiotics) [SULFA (SULFONAMIDE ANTIBIOTICS)] Allergy (Unknown, Verified 07/16/23 15:19) UNKNOWN Medication List - Last Reconciled 07/16/23 by Madi Amos MD blood sugar diagnostic (FreeStyle Lite Strips) USE LAN LO INDICADO DOS VECES AL MARTÍN blood-glucose meter (FreeStyle Lite Meter kit) As directed cetirizine 10 mg PO DAILY PRN 90 days cholecalciferol (vitamin D3) 25 mcg PO DAILY 90 days clonazepam 1 mg PO BID PRN 30 days clotrimazole-betamethasone 1-0.05 % 1 appl topical BID 4 weeks [DIABETIC SHOES As directed] fluticasone propionate 50 mcg/actuation 1 spray intranasal DAILY lancets (FreeStyle Lancets) As directed-CHECK BLOOD SUGAR TWICE A DAY - Dx: E11.9 loratadine 10 mg PO DAILY PRN 90 days metformin 500 mg PO BID 3 months mometasone 0.1% 1 appl topical DAILY PRN olopatadine 0.1% (Pataday Twice Daily Relief) 1 drp ophthalmic (eye) BID PRN sertraline 50 mg PO DAILY 30 days testosterone cypionate 200 mg IM Q4W 28 days testosterone cypionate 200 mg IM .qo week Tobacco use date assessed: 07/16/23 Dental Screening Dental Screen Date: 05/07/23 HPI Low BP, Cardiac Testing HPI Details Patient comes in today for further evaluation of his recent recurrent episodes of weakness and occasional dizziness His states that she has noticed that patient's blood pressure tends to run very low at times lately and is wondering if he needs to have some cardiac testing done Patient adds that he has been experiencing frequent itching and tearing of both eyes lately due to allergies and would like to have something prescribed to help with his eye symptoms He has also been experiencing increased pain over both of his hands as well as over his lower back recently He does not recall any recently injury or trauma to his hands or lower back He denies any headaches, chest pains or SOB lately No nausea/vomiting, no abdominal pain No change in bowel habits noted [facility] Medical History LEIA (obstructive sleep apnea) Snoring Retrognathia Somnolence, daytime ILD (interstitial lung disease) Abnormal chest xray Chest pain Hx of flexible sigmoidoscopy IBS (irritable bowel syndrome) Arthritis Cigar smoker Anxiety Vitamin D deficiency Renal calculi Allergic rhinitis Mixed dyslipidemia Diabetes mellitus Right hip pain Right shoulder pain Hypotestosteronism Swelling of left hand Left hand pain Surgical History Hx of cystoscopy Hx laparoscopic cholecystectomy History of testicular surgery History of colonoscopy History of lithotripsy Family History Father Prostate cancer Mother Hypertension Hypercholesterolemia Brother Hypertension Diabetes Social History Housing: Apartment Alcohol intake: never Patient Tobacco Use Status: Former Tobacco user Tobacco use type: Cigar Cigarettes Per Day: 3 Years Smoked: pt states quit 01/2022 e-Cigarette/Vaping Use: Never Used Second Hand Smoke Exposure: Yes Advance Directives Date on File: 11/07/14 service: No Current occupational status: disabled Cognitive needs: No Hearing needs: No Vision needs: Yes Questionnaire Thrive Questionnaire Date Thrive assessed: 05/07/23 AUDIT C Alcohol Use Questionnaire (AUDIT-C) 1. How often do you have a drink containing alcohol?: Never 3. How often do you have six or more drinks on one occasion?: Never Total Score: 0 Score Reviewed/Action Taken: Yes MALIK-7 AMB Questionnaire MALIK-7 Date MALIK - 7 assessed: 05/07/23 Source: Developed by Drs. Onesimo Swenson, Juana Giordano, Spencer Swan and colleagues, with an educational cesar from [employer]. Review of Systems Const Denies difficulty sleeping, Reports fatigue, Denies fever(s), Denies headache(s) and Reports weakness (frequent lately) ENT Denies dysphagia (but recurrent sensation of food getting stuck in his throat), Reports dizziness (on and off), Denies otalgia, Denies headache(s), Denies neck pain, Denies odynophagia and Denies sore throat Card Denies chest pain, Denies syncope, Denies palpitations and Denies dyspnea Resp Denies cough, Denies dyspnea and Denies wheezing GI Denies abdominal pain, Denies constipation, Denies dysphagia (but recurrent sensation of food getting stuck in his throat), Denies heartburn, Denies diarrhea, Reports loose stools (at times (S/P cholecystectomy) ), Denies nausea, Denies odynophagia and Denies vomiting Denies dysuria, Denies nocturia and Denies urinary frequency Musc Reports back pain (increased over the lower back recently), Reports arthralgias (over the right hip and in both hands; increased pain in both hands lately) and Denies neck pain Skin/Breast Denies rash Neuro Reports dizziness (on and off), Denies syncope, Denies headache(s) and Reports weakness (frequent lately) Psych Reports anxiety Endo Reports fatigue and Denies palpitations Aller/Immun Denies wheezing Physical exam (Primary Care) Vital Signs: Last Vital Signs Pulse 86 07/16/23 14:31 BP 108/66 07/16/23 14:31 Pulse Ox 95 07/16/23 14:31 Oxygen Delivery Method Room Air 07/16/23 14:31 BMI result Body Mass Index 25.0 Tobacco/Smoking Status: Tobacco use Status Tobacco use date assessed 07/16/23 07/16/23 14:32 Patient Tobacco Use Status Former Tobacco user 07/16/23 14:32 Tobacco use type Cigar 07/16/23 14:32 e-Cigarette/Vaping Use Never Used 07/16/23 14:32 Thrive Assessment: Date of Thrive Assessment Date Thrive assessed 05/07/23 07/16/23 14:32 Const General: no acute distress and alert HENMT Ears: TM's normal bilaterally and EAC's normal Throat: Yes posterior oropharynx normal and Yes tonsils normal (no TP congestion) Neck Neck: Yes no lymphadenopathy and Yes supple Thyroid: Thyroid normal Resp Auscultation: clear to auscultation bilaterally, no rales and no wheezes Cardio Rate: regular rate Rhythm: regular rhythm Heart sounds: no murmurs GI Palpation (GI): Soft to palpation and nontender Auscultation: normal bowel sounds Back/Spine/Pelvis Thoracic/Lumbar Spine: lumbar spinal tenderness Skin Rashes: no rashes Extrem General: Yes no clubbing, cyanosis or edema Right upper extremity: Extremity exam: right hand Details: tenderness Location: of the dorsal hand Left upper extremity: hand Details: tenderness Location: of the dorsal hand Right lower extremity: hip/thigh Details: tenderness Location: of the hip Assessment and Plan Assessment & Plan (1) Weakness: Code(s): R53.1 - Weakness Plan: Patient's is concerned that his symptoms may be cardiac in origin as she has reportedly gotten low BP readings from patient lately although his blood pressure today of 108/66 is well within the normal BP range Will send him for some labs as well as a 12 lead EKG MACARIO for further evaluation and advised that any further testing, including cardiac testing, will depend on how his results come out (2) Allergic conjunctivitis: Code(s): H10.10 - Acute atopic conjunctivitis, unspecified eye Qualifiers: Laterality: bilateral Qualified Code(s): H10.13 - Acute atopic conjunctivitis, bilateral Plan: Will start patient on Pataday 0.1% eyedrops BID PRN (3) Right hand pain: Code(s): M79.641 - Pain in right hand Plan: Will send patient for x-rays of the right hand for further evaluation (4) Low back pain: Code(s): M54.50 - Low back pain, unspecified Qualifiers: Chronicity: unspecified Back pain laterality: midline Sciatica presence: without sciatica Qualified Code(s): M54.50 - Low back pain, unspecified Plan: Will also send him for x-rays of the lumbar spine for further evaluation (5) Diabetes mellitus: Comment: taking metformin Code(s): E11.9 - Type 2 diabetes mellitus without complications Qualifiers: Diabetes mellitus type: type 2 Diabetes mellitus manager intermediate insulin use: without manager intermediate use Diabetes mellitus complication status: without complication Qualified Code(s): E11.9 - Type 2 diabetes mellitus without complications Plan: HgbA1c is at 5.7% on his labs done a couple of months ago - goal is < 7.0% Reinforced diabetic diet Continue Metformin 500 mg BID (6) Dysphagia: Code(s): R13.10 - Dysphagia, unspecified Qualifiers: Dysphagia type: unspecified Qualified Code(s): R13.10 - Dysphagia, unspecified Plan: Patient was sent for a barium swallow for further evaluation of his swallowing symptoms a couple of months ago - unclear as to why this has not been scheduled yet (7) Hypotestosteronism: Code(s): E34.9 - Endocrine disorder, unspecified Plan: Patient's testosterone level came back low again when last checked a few months ago and he was started back on Testosterone injections 200 mg every 4 weeks Will continue to monitor his serum testosterone level regularly (8) Vitamin D deficiency: Code(s): E55.9 - Vitamin D deficiency, unspecified Plan: Continue Vitamin D3 1000 units QD (9) Anxiety: Code(s): F41.9 - Anxiety disorder, unspecified Plan: Continue Clonazepam 1 mg 1 to 2 tablets BID PRN We tried starting him on Sertraline 50 mg Q AM previously but patient stopped taking the Rx on his own as he did not feel that he needed to continue taking Sertraline Plan Follow up as scheduled in August 2023 Orders: Orders Comprehensive Met. Panel 07/16/23 R53.1 - Weakness, R53.83 - Other fatigue Vitamin D 25-OH Total 07/16/23 E55.9 - Vitamin D deficiency, unspecified, R53.1 - Weakness, R53.83 - Other fatigue Erythrocyte Sedimentation Rate 07/16/23 R53.1 - Weakness, R53.83 - Other fatigue C Reactive Protein 07/16/23 R53.1 - Weakness, R53.83 - Other fatigue XR hand LT min 3V 07/16/23 M79.641 - Pain in right hand, M79.642 - Pain in left hand Complete Blood Count Auto Diff 07/16/23 D64.9 - Anemia, unspecified, R53.1 - Weakness, R53.83 - Other fatigue TSH reflex Free T4 07/16/23 R53.1 - Weakness, R53.83 - Other fatigue Vitamin B12 and Folate 07/16/23 E53.8 - Deficiency of other specified B group vitamins, R53.1 - Weakness, R53.83 - Other fatigue CK, Total+Isoenzymes, Serum 07/16/23 R53.1 - Weakness, R53.83 - Other fatigue XR lumbar spine 2-3V 07/16/23 M54.50 - Low back pain, unspecified XR hand RT min 3V 07/16/23 M79.641 - Pain in right hand, M79.642 - Pain in left hand ECG 12 lead EKG 07/16/23 I95.9 - Hypotension, unspecified, R53.1 - Weakness, R 53.83 - Other fatigue Cortisol Random 07/16/23 I95.9 - Hypotension, unspecified, R53.1 - Weakness, R53.83 - Other fatigue Medications: New olopatadine 0.1% (Pataday Twice Daily Relief) separate doses by at least 6-8 hours 1 drp ophthalmic (eye) BID PRN 5 mL 0RF eye irritation Coding Level of Care Code Est Pt Level 4 (98229) Diagnoses Weakness R53.1 Allergic conjunctivitis of both eyes H10.13 Laterality: bilateral Right hand pain M79.641 Midline low back pain without sciatica, unspecified chronicity M54.50 Chronicity: unspecified Back pain laterality: midline Sciatica presence: without sciatica Type 2 diabetes mellitus without complication, without long-term current use of insulin E11.9 Diabetes mellitus type: type 2 Diabetes mellitus [facility] insulin use: without [facility] use Diabetes mellitus complication status: without complication Dysphagia, unspecified type R13.10 Dysphagia type: unspecified Hypotestosteronism E34.9 Vitamin D deficiency E55.9 Anxiety F41.9
== END 2023-07-16 15:22 | disposition home or self-care (01) ==
LOC: HO.HMGH 14:28
PROVIDERS: PCP Internal Medicine; Visit Provider Internal Medicine
DX: R53.1 Weakness (principal); E11.9 Type 2 diabetes mellitus without complications; H10.13 Acute atopic conjunctivitis, bilateral; M79.641 Pain in right hand; M54.50 Low back pain, unspecified; R13.10 Dysphagia, unspecified; E34.9 Endocrine disorder, unspecified; E55.9 Vitamin D deficiency, unspecified; F41.9 Anxiety disorder, unspecified
CPT/HCPCS: 99214

== ENCOUNTER 2023-07-16 15:33 | Outpatient (REF) | payer OTHER, SELFPAY ==
--- NOTE | ~2023-07-16 | XR_ITS ---
EXAMINATION: XR LUMBAR SPINE XR HAND, RIGHT XR HAND, LEFT CLINICAL INDICATION: Low back pain unspecified, pain in bilateral hands. COMPARISON: Right hip and bilateral hands 07/08/2022. Lumbar spine 10/28/2014. TECHNIQUE: 3 views of the lumbar spine. 3 views of each hand. FINDINGS: LUMBAR SPINE: Slight rightward curvature of the lumbar spine. Bones are diffusely demineralized. Bilateral sacroiliac joints are symmetric. Pubic symphysis is preserved. Mild multilevel lumbar spondylosis with mild loss of disc space height at L4-L5 and L5-S1. Facet arthritis in the lower lumbar spine. RIGHT HAND: Ulnar minus variance. Bones are diffusely demineralized. Mild degenerative changes in the first carpometacarpal joint. LEFT HAND: Bones are diffusely demineralized. Mild degenerative changes in the first carpometacarpal joint. Focal cortical lucency/defect along the radial aspect of the fifth digit proximal phalanx, concerning for an ulceration. XR/XR lumbar spine 2-3V IMPRESSION: 1. Progression of mild multilevel lumbar spondylosis with mild loss of disc space height at L4-L5 and L5-S1. 2. Facet arthritis in the lower lumbar spine. 3. Mild degenerative changes in the first carpometacarpal joint bilaterally. 4. Focal cortical lucency/defect along the radial aspect of the left fifth digit proximal phalanx, concerning for an ulceration. Correlation with clinical exam recommended. This study was presented today July 28, 2023 for interpretation. Stat results provided at this time as requested by referring provider.
--- NOTE | ~2023-07-16 | XR_ITS ---
EXAMINATION: XR LUMBAR SPINE XR HAND, RIGHT XR HAND, LEFT CLINICAL INDICATION: Low back pain unspecified, pain in bilateral hands. COMPARISON: Right hip and bilateral hands 07/08/2022. Lumbar spine 10/28/2014. TECHNIQUE: 3 views of the lumbar spine. 3 views of each hand. FINDINGS: LUMBAR SPINE: Slight rightward curvature of the lumbar spine. Bones are diffusely demineralized. Bilateral sacroiliac joints are symmetric. Pubic symphysis is preserved. Mild multilevel lumbar spondylosis with mild loss of disc space height at L4-L5 and L5-S1. Facet arthritis in the lower lumbar spine. RIGHT HAND: Ulnar minus variance. Bones are diffusely demineralized. Mild degenerative changes in the first carpometacarpal joint. LEFT HAND: Bones are diffusely demineralized. Mild degenerative changes in the first carpometacarpal joint. Focal cortical lucency/defect along the radial aspect of the fifth digit proximal phalanx, concerning for an ulceration. XR/XR hand LT min 3V IMPRESSION: 1. Progression of mild multilevel lumbar spondylosis with mild loss of disc space height at L4-L5 and L5-S1. 2. Facet arthritis in the lower lumbar spine. 3. Mild degenerative changes in the first carpometacarpal joint bilaterally. 4. Focal cortical lucency/defect along the radial aspect of the left fifth digit proximal phalanx, concerning for an ulceration. Correlation with clinical exam recommended. This study was presented today July 28, 2023 for interpretation. Stat results provided at this time as requested by referring provider.
--- NOTE | ~2023-07-16 | XR_ITS ---
EXAMINATION: XR LUMBAR SPINE XR HAND, RIGHT XR HAND, LEFT CLINICAL INDICATION: Low back pain unspecified, pain in bilateral hands. COMPARISON: Right hip and bilateral hands 07/08/2022. Lumbar spine 10/28/2014. TECHNIQUE: 3 views of the lumbar spine. 3 views of each hand. FINDINGS: LUMBAR SPINE: Slight rightward curvature of the lumbar spine. Bones are diffusely demineralized. Bilateral sacroiliac joints are symmetric. Pubic symphysis is preserved. Mild multilevel lumbar spondylosis with mild loss of disc space height at L4-L5 and L5-S1. Facet arthritis in the lower lumbar spine. RIGHT HAND: Ulnar minus variance. Bones are diffusely demineralized. Mild degenerative changes in the first carpometacarpal joint. LEFT HAND: Bones are diffusely demineralized. Mild degenerative changes in the first carpometacarpal joint. Focal cortical lucency/defect along the radial aspect of the fifth digit proximal phalanx, concerning for an ulceration. XR/XR hand RT min 3V IMPRESSION: 1. Progression of mild multilevel lumbar spondylosis with mild loss of disc space height at L4-L5 and L5-S1. 2. Facet arthritis in the lower lumbar spine. 3. Mild degenerative changes in the first carpometacarpal joint bilaterally. 4. Focal cortical lucency/defect along the radial aspect of the left fifth digit proximal phalanx, concerning for an ulceration. Correlation with clinical exam recommended. This study was presented today July 28, 2023 for interpretation. Stat results provided at this time as requested by referring provider.
--- NOTE | 2023-07-16 15:41 | ECG_ITS ---
Test Reason : WEAKNESS Blood Pressure : / mmHG Vent. Rate : 074 BPM Atrial Rate : 074 BPM P-R Int : 128 ms QRS Dur : 088 ms QT Int : 394 ms P-R-T Axes : 026 049 019 degrees QTc Int : 437 ms Normal sinus rhythm Normal ECG No previous ECGs available Referred By: Madi Amos Electronically Signed By:LESLEE CHICAS MD
[2023-07-16 15:57] LABS: MANUAL DIFF FLAG NO
[2023-07-16 17:33] LABS: Erythrocyte Sedimentation Rate 16 MM/HR (0-15)
[2023-07-16 18:04] LABS: Basophils Absolute Auto 0.1 X10*3/uL (0.0-0.2); Basophils Percent Auto 0.9 % (0-2); Eosinophils Absolute Auto 0.6 X10*3/uL (0.0-0.4); Eosinophils Percent Auto 10.1 % (0-4); Hematocrit 37.9 % (42.0-52.0); Hemoglobin 12.8 g/dl (14.0-18.0); Imm Gran Abs Auto 0.02 X10*3/uL (0.00-0.03); Imm Gran Pct Auto 0.4 % (0.0-0.4); Lymphocytes Absolute Auto 1.9 X10*3/uL (1.2-4.9); Lymphocytes Percent Auto 34.4 % (20-40); Mean Corpuscular HGB Conc 33.8 g/dl (31.0-36.0); Mean Corpuscular Hemoglobin 29.4 pg (27.0-33.0); Mean Corpuscular Volume 87.1 fL (80.0-98.0); Mean Platelet Volume 10.8 fL (9.4-12.4); Monocytes Absolute Auto 0.4 X10*3/uL (0.1-1.2); Monocytes Percent Auto 7.3 % (2-11); Neutrophils Absolute Auto 2.6 x10*3/uL (2.0-8.3); Neutrophils Percent Auto 46.9 % (45-73); Platelet Count 263 X10*3/uL (160-400); Red Blood Count 4.35 X10*6/uL (4.60-5.80); Red Cell Distribution Width 12.6 % (11.0-16.0); White Blood Count 5.5 X10*3/uL (4.8-10.8)
[2023-07-16 19:11] LABS: Alanine Aminotransferase 50 U/L (0-40); Alkaline Phosphatase 39 U/L (39-117); Anion Gap 13 (12-20); Aspartate Amino Transferase 27 U/L (5-37); Bilirubin Total 0.3 mg/dL (0.0-1.0); Blood Urea Nitrogen 19 mg/dL (9-16); C Reactive Protein 0.11 mg/dL (< or = 0.50); Calcium 9.7 mg/dL (8.4-10.2); Carbon Dioxide 26 mmol/L (22-29); Chloride 108 mmol/L (96-108); Estimated Glomerular Filt Rate > 60; Glucose Random 131 mg/dL (60-115); Potassium 4.2 mmol/L (3.3-5.1); Sodium 143 mmol/L (135-145); Total Protein 7.4 g/dL (6.5-8.0)
[2023-07-16 19:12] LABS: Cortisol Random 7.7 ug/dL
[2023-07-16 19:17] LABS: TSH reflex Free T4 0.93 uIU/mL (0.32-4.0); Vitamin D 25-OH Total 42.2 ng/mL (>30)
[2023-07-16 19:22] LABS: Folate 10.2 ng/mL (> or = 4.0); Vitamin B12 261 pg/mL (200-900)
[2023-07-20 18:18] LABS: CK-BB None Detected (None Detected); CK-MB 0 % (<5); CK-MM 100 % (95-100); Creatine Kinase,Total,Serum 76 U/L (44-196)
== END 2023-07-16 15:34 | disposition home or self-care (01) ==
LOC: HO.LAB 15:33
PROVIDERS: PCP Internal Medicine; Visit Provider Internal Medicine
DX: R53.1 Weakness (principal); R53.83 Other fatigue; D64.9 Anemia, unspecified; I95.9 Hypotension, unspecified; E55.9 Vitamin D deficiency, unspecified; E53.8 Deficiency of other specified B group vitamins; M79.641 Pain in right hand; M79.642 Pain in left hand; M54.50 Low back pain, unspecified
CPT/HCPCS: 36415; 72100; 73130; 80053; 82306; 82533; 82552; 82607; 82746; 84443; 85025; 85652; 86140; 93005

== ENCOUNTER → 2023-07-16 15:41 | Outpatient (BNV) | payer OTHER, SELFPAY | PROVIDERS: PCP Internal Medicine; Visit Provider Internal Medicine Cardiovascular Disease | DX: R53.1 Weakness (principal) | CPT/HCPCS: 93010 ==

== ENCOUNTER 2023-08-04 15:50 | Outpatient (AMB) | payer OTHER, SELFPAY ==
--- NOTE | 2023-08-04 16:22 | AM.OFFVISNUR ---
Intake Intake Visit Reasons: testosterone shot Allergies Iodinated Contrast Media [IV Dye, Iodine Containing] Allergy (Severe, Verified 07/16/23 15:19) ANAPHYLAXIS aspirin [Aspirin] Allergy (Mild, Verified 07/16/23 15:19) ITCHING ibuprofen [Ibuprofen] Allergy (Mild, Verified 07/16/23 15:19) NAUSEA Penicillins Allergy (Mild, Verified 07/16/23 15:19) ITCHING/SWELLING Gadolinium-Containing Contrast Medi [GADOLINIUM-CONTAINING CONTRAST] Allergy (Unknown, Verified 07/16/23 15:19) UNKNOWN iodine [IODINE] Allergy (Unknown, Verified 07/16/23 15:19) UNKNOWN morphine [MORPHINE] Allergy (Unknown, Verified 07/16/23 15:19) TACHYCARDIA oxycodone [From PERCOCET] Allergy (Unknown, Verified 07/16/23 15:19) N/V,H/A Sulfa (Sulfonamide Antibiotics) [SULFA (SULFONAMIDE ANTIBIOTICS)] Allergy (Unknown, Verified 07/16/23 15:19) UNKNOWN Office Meds testosterone cypionate 200 mg/mL intramuscular kit Performing Provider: Madi Amos MD [facility] Administered by: Mavis Blanco RN on 08/04/23 16:22 Dose Route Admin Location Dispensed Lot Number Expiration Date NDC [place] 200 mg IM Right gluteus 1 ea [id number] 12/22/23 9454-2004-74 Coding Assessment & Plan Assessment & Plan Orders: Orders AMB Testosterone Injection Patient Supplied Today E34.9 - Endocrine disorder, unspecified Medications: New testosterone cypionate 200 mg IM ONCE 1 ea 0RF E34.9 - Endocrine disorder, unspecified
== END 2023-08-04 16:27 | disposition home or self-care (01) ==
PROVIDERS: PCP Internal Medicine; Visit Provider Internal Medicine
DX: E34.9 Endocrine disorder, unspecified (principal)
CPT/HCPCS: 96372

== ENCOUNTER 2023-08-19 15:59 | Outpatient (AMB) | payer OTHER, SELFPAY ==
[2023-08-19 16:20] VITALS: BP 102/64; PULSE 102; O2SAT 97; BMI 25.0
--- NOTE | 2023-08-19 16:20 | A.OFFVIS_ITS ---
Vital Signs 08/19/23 16:20 Height 5 ft 6 in Weight 155 lb BMI 25.0 BP 102/64 Blood Pressure Location Lt brachial Position Sitting Pulse 102 H Pulse Source Pulse Oximeter Pulse Oximetry (%) 97 Oxygen Delivery Method Room Air Intake Visit Reasons: Obstructive sleep apnea Intake Note: pt is here for follow up and is having some issues choking on food and has had a lot of phlegm prior to his choking episode, a lot of coughing also, Plastic Cnc Machine Operator Required: No Allergies Iodinated Contrast Media [IV Dye, Iodine Containing] Allergy (Severe, Verified 08/19/23 16:57) ANAPHYLAXIS aspirin [Aspirin] Allergy (Mild, Verified 08/19/23 16:57) ITCHING ibuprofen [Ibuprofen] Allergy (Mild, Verified 08/19/23 16:57) NAUSEA Penicillins Allergy (Mild, Verified 08/19/23 16:57) ITCHING/SWELLING Gadolinium-Containing Contrast Medi [GADOLINIUM-CONTAINING CONTRAST] Allergy (Unknown, Verified 08/19/23 16:57) UNKNOWN iodine [IODINE] Allergy (Unknown, Verified 08/19/23 16:57) UNKNOWN morphine [MORPHINE] Allergy (Unknown, Verified 08/19/23 16:57) TACHYCARDIA oxycodone [From PERCOCET] Allergy (Unknown, Verified 08/19/23 16:57) N/V,H/A Sulfa (Sulfonamide Antibiotics) [SULFA (SULFONAMIDE ANTIBIOTICS)] Allergy (Unknown, Verified 08/19/23 16:57) UNKNOWN Medication List - Last Reconciled 08/19/23 by Tiburcio Rojas MD blood sugar diagnostic (FreeStyle Lite Strips) USE LAN LO INDICADO DOS VECES AL MARTÍN blood-glucose meter (FreeStyle Lite Meter kit) As directed cetirizine 10 mg PO DAILY PRN 90 days cholecalciferol (vitamin D3) 25 mcg PO DAILY 90 days clonazepam 1 mg PO BID PRN 30 days clotrimazole-betamethasone 1-0.05 % 1 appl topical BID 4 weeks [DIABETIC SHOES As directed] fluticasone propionate 50 mcg/actuation 1 spray intranasal DAILY lancets (FreeStyle Lancets) As directed-CHECK BLOOD SUGAR TWICE A DAY - Dx: E11.9 loratadine 10 mg PO DAILY PRN 90 days metformin 500 mg PO BID 3 months mometasone 0.1% 1 appl topical DAILY PRN olopatadine 0.1% (Pataday Twice Daily Relief) 1 drp ophthalmic (eye) BID PRN sertraline 50 mg PO DAILY 30 days testosterone cypionate 200 mg IM Q4W 28 days testosterone cypionate 200 mg IM .qo week Do you need a note to return to daycare/school/sports/work: No HPI HPI Obstructive sleep apnea: Details: THIS 62 YEARS OLD GENTLEMAN, BELARUSIAN SPEAKING, COMES ALONG WITH HIS WHO SPEAKS JAPANESE FOR HIM. HE HAS HAD EPISODES OF CHOKING LIKE FEELING AT NIGHT. . WITH FREQUENT AWAKENINGS HOME-BASED SLEEP STUDY IN JANUARY 2023 WAS NEGATIVE FOR SLEEP APNEA. HIS SLEEP IS FAIRLY GOOD BUT INTERRUPTED BY SOME CHOKING EPISODES. DURING THE DAYTIME HE HAS FREQUENT EPISODES OF CHOKING LIKE FEELING. HE HAS EPISODES OF CHOKING ON FOOD SUCH EATING BREAD, TO THE POINT THAT HIS HAD TO DO HEIMLICH MANEUVER ON HIM A FEW TIMES. HE DENIES ANY PERSISTENT COUGH OR WHEEZING. HIS PRIMARY CARE PHYSICIAN DR. YRN HRAT HAD ORDERED A BARIUM SWALLOW, BUT HE DID NOT UNDERGO THE TEST BECAUSE HE HAS HISTORY OF ALLERGY TO IV CONTRAST DYE. HE DID NOT UNDERSTAND THAT THE CONTRAST USED THIS TIME WOULD BE SAYS BARIUM SWALLOW AND NOT INTRAVENOUS DYE. [facility] Medical History (Updated 08/19/23 @ 17:10 by Tiburcio Rojas MD) Choking due to phlegm LEIA (obstructive sleep apnea) Snoring Retrognathia Somnolence, daytime ILD (interstitial lung disease) Abnormal chest xray Chest pain Hx of flexible sigmoidoscopy IBS (irritable bowel syndrome) Arthritis Cigar smoker Anxiety Vitamin D deficiency Renal calculi Allergic rhinitis Mixed dyslipidemia Diabetes mellitus Right hip pain Right shoulder pain Hypotestosteronism Swelling of left hand Left hand pain Surgical History Hx of cystoscopy Hx laparoscopic cholecystectomy History of testicular surgery History of colonoscopy History of lithotripsy Family History Father Prostate cancer Mother Hypertension Hypercholesterolemia Brother Hypertension Diabetes Other Hypotestosteronism Social History Housing: Apartment Alcohol intake: never Patient Tobacco Use Status: Former Tobacco user Tobacco use type: Cigar Cigarettes Per Day: 3 Years Smoked: pt states quit 01/2022 e-Cigarette/Vaping Use: Never Used Second Hand Smoke Exposure: Yes Advance Directives Date on File: 11/07/14 service: No Current occupational status: disabled Cognitive needs: No Hearing needs: No Vision needs: Yes Review of Systems Const All systems reviewed & are unremarkable except as noted in HPI and below Eyes Reports no additional complaints ENT Reports nasal congestion (Mild chronic) Card Reports chest pain (Chest pain and is more like muscular and not cardiac related), Denies irregular heart rhythm and Denies leg edema Resp Reports as per HPI GI Reports constipation Reports erectile dysfunction Musc Denies back pain, Denies myalgias and Denies arthralgias Skin/Breast Reports system reviewed and no additional complaints, except as documented Neuro Reports no additional complaints Psych Reports anxiety Physical Exam Vital Signs: Last Vital Signs Pulse 102 H 08/19/23 16:20 BP 102/64 08/19/23 16:20 Pulse Ox 97 08/19/23 16:20 Oxygen Delivery Method Room Air 08/19/23 16:20 BMI result Body Mass Index 25.0 Const General: healthy appearing, comfortable, no acute distress, alert and awake Orientation/consciousness: patient oriented x3 HEENT Head: Yes normal to inspection General nose exam: No nasal polyps present and No nasal discharge present Face and sinus: Yes sinuses nontender Mouth: oropharynx normal (OROPHARYNX IS NARROW AND TONGUE IS PLACED BACK, MALLAMPATI CLASS 3) Teeth and gingiva: other (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 Cardio Palpation: normal PMI Rate: regular rate Rhythm: regular rhythm Heart sounds: no gallops and no murmurs Peripheral pulses: Peripheral pulses 2+ throughout GI Palpation (GI): Soft to palpation, nontender, No hepatosplenomegaly present and no masses Auscultation: normal bowel sounds Back/Spine/Pelvis Thoracic/Lumbar Spine: thoracic and lumbar spine normal to inspection Skin General skin exam: no rashes or lesions noted Neuro General: patient oriented x3 and no focal motor deficits Cranial nerves: Yes CN's II-XII intact bilaterally Extrem General: Yes normal to inspection, Yes no clubbing, cyanosis or edema and Yes no calf tenderness Psych Appearance: grossly normal and well kempt Speech and movement: Normal speech and movement present Assessment & Plan Assessment & Plan (1) Retrognathia: Comment: THIS GENTLEMAN IS NOT OVERWEIGHT AND THE MAIN REASON FOR HIS SUSPECTED SLEEP APNEA IS RETROGANTHIA OF THE LOWER JAW. Code(s): M26.19 - Other specified anomalies of jaw-cranial base relationship Category: Medical Plan: THE LAST HOME-BASED SLEEP STUDY WAS NEGATIVE FOR SLEEP APNEA. BUT HE DID HAVE A MILD DEGREE OF NOCTURNAL HYPOXEMIA. I AGAIN EXPLAINED TO HIM THROUGH HIS THAT HE DOES NOT HAVE SLEEP APNEA. (2) Allergic rhinitis: Comment: Chronic nasal congestion and postnasal discharge, secondary to allergic rhinitis,. controlled Code(s): J30.9 - Allergic rhinitis, unspecified Category: Medical Qualifiers: Allergic rhinitis seasonality: unspecified Allergic rhinitis trigger: unspecified Qualified Code(s): J30.9 - Allergic rhinitis, unspecified Plan: May use loratadine 10 mg once a day p.r.n. (3) ILD (interstitial lung disease): Comment: History of smoking cigars. CT scan changes of chronic interstitial lung disease/ most likely pulmonary fibrosis. The patient is almost asymptomatic except for mild intermittent cough. Code(s): J84.9 - Interstitial pulmonary disease, unspecified Category: Medical Plan: Patient does not need any bronchodilator inhalers . On a regular basis However he may keep ProAir on hand and use 1 or 2 puffs Q 6 hours p.r.n. if he has any acute shortness of breath (4) Choking due to phlegm: Comment: He describes typical choking attacks due to mucus in his throat or sometime after eating bread. His had to do Heimlich. Maneuver a few times This seem to be due to muscular discoordination. He needs to have barium swallow, and if that is abnormal then he would need endoscopy. Code(s): T17.310A - Gastric contents in larynx causing asphyxiation, initial encounter Category: Medical Plan: I have ordered barium swallow test I have explained to him that use of barium would be okay and it is not like IV contrast. He understands Orders: Orders [place] barium swallow modified Today R13.10 - Dysphagia, unspecified Medications: New albuterol sulfate 90 mcg/actuation 2 puffs inhalation Q4-6H PRN 8.5 grams 2RF shortness of breath or wheezing 30 days Coding Level of Care Code Est Pt Level 3 (80325) Diagnoses Retrognathia M26.19 Allergic rhinitis, unspecified seasonality, unspecified trigger J30.9 Allergic rhinitis seasonality: unspecified Allergic rhinitis trigger: unspecified ILD (interstitial lung disease) J84.9 Choking due to phlegm T17.310A
== END 2023-08-19 16:43 | disposition home or self-care (01) ==
PROVIDERS: PCP Internal Medicine; Visit Provider Internal Medicine
DX: M26.19 Other specified anomalies of jaw-cranial base relationship (principal); J30.9 Allergic rhinitis, unspecified; J84.9 Interstitial pulmonary disease, unspecified; T17.310A Gastric contents in larynx causing asphyxiation, initial encounter
CPT/HCPCS: 99213

== ENCOUNTER → 2023-08-19 15:59 | Outpatient (BNVA) | payer OTHER, SELFPAY | PROVIDERS: PCP Internal Medicine; Visit Provider Internal Medicine | DX: M26.19 Other specified anomalies of jaw-cranial base relationship (principal); J84.9 Interstitial pulmonary disease, unspecified; J30.9 Allergic rhinitis, unspecified; T17.310A Gastric contents in larynx causing asphyxiation, initial encounter | CPT/HCPCS: 99212 ==

== ENCOUNTER 2023-09-02 16:38 | Outpatient (AMB) | payer OTHER, SELFPAY ==
--- NOTE | 2023-09-02 16:39 | A.OFFPC_ITS ---
Intake Visit Reasons: 3mth f/u Allergies Iodinated Contrast Media [IV Dye, Iodine Containing] Allergy (Severe, Verified 09/02/23 16:40) ANAPHYLAXIS aspirin [Aspirin] Allergy (Mild, Verified 09/02/23 16:40) ITCHING ibuprofen [Ibuprofen] Allergy (Mild, Verified 09/02/23 16:40) NAUSEA Penicillins Allergy (Mild, Verified 09/02/23 16:40) ITCHING/SWELLING Gadolinium-Containing Contrast Medi [GADOLINIUM-CONTAINING CONTRAST] Allergy (Unknown, Verified 09/02/23 16:40) UNKNOWN iodine [IODINE] Allergy (Unknown, Verified 09/02/23 16:40) UNKNOWN morphine [MORPHINE] Allergy (Unknown, Verified 09/02/23 16:40) TACHYCARDIA oxycodone [From PERCOCET] Allergy (Unknown, Verified 09/02/23 16:40) N/V,H/A Sulfa (Sulfonamide Antibiotics) [SULFA (SULFONAMIDE ANTIBIOTICS)] Allergy (Unknown, Verified 09/02/23 16:40) UNKNOWN Tobacco use date assessed: 07/16/23 Dental Screening Dental Screen Date: 05/07/23 HPI 3mth f/u HPI Details Patient's follow-up visit / consultation today is done over the phone - this is a Telehealth visit Patient's current medications have been reviewed and verified with patient and / or caregiver / proxy and have been updated accordingly in the medication list Patient's visit today is done through the assistance of his , who acts as educational sign language interpreter as patient speaks little Sudanese Patient is currently reportedly feeling somewhat tired presently and with the heat and humidity of the weather today, his decided to change his appointment today to a telehealth visit instead so he does not have to risk coming out in the heat Patient states that he feels okay overall but continues to feel tired and fatigued often He is still experiencing trouble swallowing and feels like he is often choking on his phlegm He is scheduled for a barium swallow for further evaluation later this month He denies any headaches; still has occasional dizziness Denies any chest pains, no increased shortness of breath No nausea/vomiting, no abdominal pain No change in bowel habits noted Would like to get his clonazepam Rx filled but he is aware that knee cannot pick it up until late next week Would also like to know how he did on his labs done a few weeks ago [facility] Medical History Choking due to phlegm LEIA (obstructive sleep apnea) Snoring Retrognathia Somnolence, daytime ILD (interstitial lung disease) Abnormal chest xray Chest pain Hx of flexible sigmoidoscopy IBS (irritable bowel syndrome) Arthritis Cigar smoker Anxiety Vitamin D deficiency Renal calculi Allergic rhinitis Mixed dyslipidemia Diabetes mellitus Right hip pain Right shoulder pain Hypotestosteronism Swelling of left hand Left hand pain Surgical History Hx of cystoscopy Hx laparoscopic cholecystectomy History of testicular surgery History of colonoscopy History of lithotripsy Family History Father Prostate cancer Mother Hypertension Hypercholesterolemia Brother Hypertension Diabetes Other Hypotestosteronism Social History Housing: Apartment Alcohol intake: never Patient Tobacco Use Status: Former Tobacco user Tobacco use type: Cigar Cigarettes Per Day: 3 Years Smoked: pt states quit 01/2022 e-Cigarette/Vaping Use: Never Used Second Hand Smoke Exposure: Yes Advance Directives Date on File: 11/07/14 service: No Current occupational status: disabled Cognitive needs: No Hearing needs: No Vision needs: Yes Questionnaire Thrive Questionnaire Date Thrive assessed: 05/07/23 MALIK-7 AMB Questionnaire MALIK-7 Date MALIK - 7 assessed: 05/07/23 Source: Developed by Drs. Onesimo Swenson, Juana Giordano, Spencer Swan and colleagues, with an educational cesar from [employer]. Review of Systems Const Denies chills, Denies difficulty sleeping, Reports fatigue, Denies fever(s), Denies headache(s) and Reports weakness ENT Reports dysphagia (recurrent sensation of food getting stuck in his throat/choked recently), Reports dizziness (on and off), Denies otalgia, Denies headache(s), Denies neck pain, Denies odynophagia and Denies sore throat Card Denies chest pain, Denies syncope, Denies palpitations and Denies dyspnea Resp Denies cough, Denies dyspnea and Denies wheezing GI Denies abdominal pain, Denies constipation, Reports dysphagia (recurrent sensation of food getting stuck in his throat/choked recently), Denies heartburn, Denies diarrhea, Reports loose stools (at times (S/P cholecystectomy) ), Denies nausea, Denies odynophagia and Denies vomiting Denies dysuria, Denies nocturia and Denies urinary frequency Musc Reports back pain (over the lower back), Reports arthralgias (over the right hip and in both hands) and Denies neck pain Skin/Breast Denies rash Neuro Reports dizziness (on and off), Denies syncope, Denies headache(s) and Reports weakness Psych Reports anxiety Endo Reports fatigue and Denies palpitations Aller/Immun Denies wheezing Physical exam (Primary Care) Vital Signs: Physical examination is not performed as visit / consultation today is done over the phone - Telehealth visit All physical findings indicated here, if present, are as per patient's and / or caregivers / proxy's report Tobacco/Smoking Status: Tobacco use Status Tobacco use date assessed 07/16/23 09/02/23 16:40 Patient Tobacco Use Status Former Tobacco user 09/02/23 16:40 Tobacco use type Cigar 09/02/23 16:40 e-Cigarette/Vaping Use Never Used 09/02/23 16:40 Thrive Assessment: Date of Thrive Assessment Date Thrive assessed 05/07/23 09/02/23 16:40 Telehealth Telehealth Telehealth Platform: Telephone Location of provider rendering services: practice address Location of patient: address on file Patient Identification confirmed using: Name, : Yes Telehealth method: voice only ([phone]/ android ) Patient verbally consented to treatment: Yes Patient verbally consented to billing insurance company: Yes Patient informed of any privacy concerns related to visit: Yes Minutes spent on Phone/Video with Pt.: 24 Results Reviewed Results Reviewed: Laboratory Tests 07/16/23 15:55 WBC 5.5 Hgb 12.8 L Hct 37.9 L Plt Count 263 ESR 16 H Sodium 143 Potassium 4.2 Creatinine 0.97 Estimated GFR > 60 Random Glucose 131 H Calcium 9.7 AST 27 ALT 50 H Total Creatine Kinase 76 CK-MB (CK-2) 0 CK Isoenzymes Interp see note C-Reactive Protein 0.11 Vitamin B12 261 25-OH Vitamin D Total 42.2 TSH 0.93 Random Cortisol 7.7 Assessment and Plan Assessment & Plan (1) Diabetes mellitus: Comment: taking metformin Code(s): E11.9 - Type 2 diabetes mellitus without complications Qualifiers: Diabetes mellitus complication status: without complication Diabetes mellitus prison insulin use: without prison use Diabetes mellitus type: type 2 Qualified Code(s): E11.9 - Type 2 diabetes mellitus without complic ations Plan: His HgbA1c was at 5.7% when last checked in April 2023; was previously at 5.9% - goal is < 7.0% Reinforced diabetic diet Continue Metformin 500 mg BID (2) Mixed dyslipidemia: Code(s): E78.2 - Mixed hyperlipidemia Plan: Results of his labs done a few weeks ago reviewed and discussed with patient Reinforced low cholesterol diet Will recheck his labs and fasting lipids in 3 months for follow-up (3) ILD (interstitial lung disease): Comment: History of smoking cigars. CT scan changes of chronic interstitial lung disease/ most likely pulmonary fibrosis. The patient is almost asymptomatic except for mild intermittent cough. Code(s): J84.9 - Interstitial pulmonary disease, unspecified Plan: Has ARORA at times but symptoms are again mostly mild Follow up with pulmonary (Dr. Rojas) as scheduled (4) Dysphagia: Code(s): R13.10 - Dysphagia, unspecified Qualifiers: Dysphagia type: unspecified Qualified Code(s): R13.10 - Dysphagia, unspecified Plan: Patient was previously sent for a barium swallow for further evaluation but he did not get it done A modified barium swallow was then reordered by Dr. Rojas and he is now scheduled to get this done later this month (5) Daytime somnolence: Code(s): R40.0 - Somnolence Plan: Patient had a Home Sleep Study done last year, which was negative for sleep apnea although he had some nocturnal hypoxemia, which Dr. Rojas is attributing to his retrognathia He has been advised to avoid sleeping in a supine position Follow up with Sleep Medicine as scheduled (6) Allergic rhinitis: Comment: Chronic nasal congestion and postnasal discharge, secondary to allergic rhinitis,. controlled Code(s): J30.9 - Allergic rhinitis, unspecified Qualifiers: Allergic rhinitis seasonality: unspecified Allergic rhinitis trigger: unspecified Qualified Code(s): J30.9 - Allergic rhinitis, unspecified Plan: Continue Cetirizine 10 mg QD PRN and Fluticasone 50 mcg nasal spray QD PRN Takes Loratadine 10 mg QD PRN if his symptoms are milder (7) Hypotestosteronism: Code(s): E34.9 - Endocrine disorder, unspecified Plan: Patient's testosterone level came back low again when last checked a few months ago His is now back on Testosterone injections 200 mg every 4 weeks Will continue to monitor his serum testosterone level regularly (8) Vitamin D deficiency: Code(s): E55.9 - Vitamin D deficiency, unspecified Plan: Continue Vitamin D3 1000 units QD (9) Loose stools: Code(s): R19.5 - Other fecal abnormalities Plan: He has been advised that his on and off loose stools are most likely related to his post-cholecystectomy status Reminded again that since he no longer has a gall bladder, he should avoid eating and greasy, oily or fried foods or he will get diarrhea and loose stools as a result (10) Renal calculi: Comment: S/P ESWL last year Code(s): N20.0 - Calculus of kidney Plan: Patient has been asymptomatic lately Follow up with urology as scheduled (11) Anxiety: Code(s): F41.9 - Anxiety disorder, unspecified Plan: Continue Clonazepam 1 mg 1 to 2 tablets BID PRN We tried starting him on Sertraline 50 mg Q AM at his last visit but he did not feel that he needed to continue on it and stopped taking it Plan Follow up in 3 months Orders: Orders Hemoglobin A1c 3 Months E11.9 - Type 2 diabetes mellitus without complications TSH reflex Free T4 3 Months E78.00 - Pure hypercholesterolemia, unspecified Lipid Panel 3 Months E78.00 - Pure hypercholesterolemia, unspecified Complete Blood Count Auto Diff 3 Months D64.9 - Anemia, unspecified Comprehensive [place]. Panel Fast 3 Months E78.00 - Pure hypercholesterolemia, unspecified UA CC w/rflx Micro + Cult 3 Months R30.0 - Dysuria Microalbumin, Random (w Creat) 3 Months E11.9 - Type 2 diabetes mellitus without complications Vitamin D 25-OH Total 3 Months E55.9 - Vitamin D deficiency, unspecified Medications: Refilled clonazepam 1 mg PO BID 30 days PRN 60 tabs 0RF Anxiety Coding Level of Care Code Tele Est Pt Level 4 (39259) Diagnoses Type 2 diabetes mellitus without complication, without long-term current use of insulin E11.9 Diabetes mellitus complication status: without complication Diabetes mellitus prison insulin use: without long term care social worker use Diabetes mellitus type: type 2 Mixed dyslipidemia E78.2 ILD (interstitial lung disease) J84.9 Dysphagia, unspecified type R13.10 Dysphagia type: unspecified Daytime somnolence R40.0 Allergic rhinitis, unspecified seasonality, unspecified trigger J30.9 Allergic rhinitis seasonality: unspecified Allergic rhinitis trigger: unspecified Hypotestosteronism E34.9 Vitamin D deficiency E55.9 Loose stools R19.5 Renal calculi N20.0 Anxiety F41.9
== END 2023-09-02 17:17 | disposition home or self-care (01) ==
PROVIDERS: PCP Internal Medicine; Visit Provider Internal Medicine
DX: E11.9 Type 2 diabetes mellitus without complications (principal); E78.2 Mixed hyperlipidemia; J84.9 Interstitial pulmonary disease, unspecified; R13.10 Dysphagia, unspecified; R40.0 Somnolence; J30.9 Allergic rhinitis, unspecified; E34.9 Endocrine disorder, unspecified; E55.9 Vitamin D deficiency, unspecified; R19.5 Other fecal abnormalities; N20.0 Calculus of kidney; F41.9 Anxiety disorder, unspecified
CPT/HCPCS: 99214

== ENCOUNTER 2023-10-15 15:42 | Outpatient (AMB) | payer OTHER, SELFPAY ==
--- NOTE | 2023-10-15 15:49 | AM.OFFVISNUR ---
Intake Visit Reasons: testosterone shot Allergies Iodinated Contrast Media [IV Dye, Iodine Containing] Allergy (Severe, Verified 09/02/23 16:40) ANAPHYLAXIS aspirin [Aspirin] Allergy (Mild, Verified 09/02/23 16:40) ITCHING ibuprofen [Ibuprofen] Allergy (Mild, Verified 09/02/23 16:40) NAUSEA Penicillins Allergy (Mild, Verified 09/02/23 16:40) ITCHING/SWELLING Gadolinium-Containing Contrast Medi [GADOLINIUM-CONTAINING CONTRAST] Allergy (Unknown, Verified 09/02/23 16:40) UNKNOWN iodine [IODINE] Allergy (Unknown, Verified 09/02/23 16:40) UNKNOWN morphine [MORPHINE] Allergy (Unknown, Verified 09/02/23 16:40) TACHYCARDIA oxycodone [From PERCOCET] Allergy (Unknown, Verified 09/02/23 16:40) N/V,H/A Sulfa (Sulfonamide Antibiotics) [SULFA (SULFONAMIDE ANTIBIOTICS)] Allergy (Unknown, Verified 09/02/23 16:40) UNKNOWN Office Meds testosterone cypionate 200 mg/mL intramuscular kit Performing Provider: Madi Amos MD [facility] Administered by: Sera Ledezma RN on 10/15/23 15:49 Dose Route Admin Location Dispensed Lot Number Expiration Date NDC Gun Repair Clerk 200 mg IM left gluteus 1 ea [id number] 01/23/26 Assessment & Plan Assessment & Plan Orders: Orders AMB Testosterone Injection Patient Supplied Today R79.89 - Other specified abnormal findings of blood chemistry Medications: New testosterone cypionate 200 mg IM ONCE 1 ea 0RF R79.89 - Other specified abnormal findings of blood chemistry
== END 2023-10-15 16:15 | disposition home or self-care (01) ==
PROVIDERS: PCP Internal Medicine; Visit Provider Internal Medicine
DX: R79.89 Other specified abnormal findings of blood chemistry (principal)
CPT/HCPCS: 96372

== ENCOUNTER 2023-10-22 14:05 | Outpatient (REF) | payer OTHER, SELFPAY ==
--- NOTE | ~2023-10-22 | FL_ITS ---
EXAMINATION: Modified Barium Swallow CLINICAL INFORMATION: Dysphagia COMPARISON: None TECHNIQUE: Modified barium swallow was performed under lateral fluoroscopy with patient in standing position. Barium mixed with solids and liquids of different consistencies was administered by the speech pathologist. Examination was recorded in the fluoroscopy suite. FINDINGS: No laryngeal penetration or aspiration was observed during this examination. FLUOROSCOPY TIME: 49 sec Number of Spot Images: N/A DOSE AREA PRODUCT: 320.1 uGy-m2 (microgray-meter squared) FL/FL Modified Barium Swallow IMPRESSION: No laryngeal penetration or aspiration was observed during this examination. Refer to the speech therapy report for further clarification This procedure was performed by Jm Mooney PA-C, and supervised by Dr. William Electronically signed by: Malcolm William MD 10/28/2023 03:45 PM EDT
--- NOTE | 2023-10-22 17:51 | MHC.SL.IMP ---
Date of Plan of Treatment: 10/22/23 Onset of Symptoms/Illness: 07/22/23 Date Treatment Started: 10/22/23 Admitting Diagnosis: R13.10 Dysphagia, unspecified Primary Speech & Language Diagnosis: R13.12 Oropharyngeal Phase Dysphagia Reason for Today's Visit: 96162 Modified Barium Swallow Study Pre-evaluation Dietary Consistencies: Regular Pre-evaluation Liquid Consistency: Thin Pre-evaluation Medication Administration: Whole with Liquid Medical History: Modified Barium Swallow Study Fluoroscopic Evaluation of Swallowing Function CPT Code 45497 Evaluation Year: 2023 Reason for Study: Difficulty swallowing Referring Physician: Tiburcio Rojas MD Evaluating Clinician: Dyan Savage MA, CCC-CERAMICS TEST ENGINEER Study Number: 1 Patient Name: Gopi Isaacs Status: Outpatient, Ambulatory Age: 62 Gender: Male Medical History Medical History (Updated 08/19/23 @ 17:10 by Tiburcio Rojas MD) Choking due to phlegm LEIA (obstructive sleep apnea) Snoring Retrognathia Somnolence, daytime ILD (interstitial lung disease) Abnormal chest xray Chest pain Hx of flexible sigmoidoscopy IBS (irritable bowel syndrome) Arthritis Cigar smoker Anxiety Vitamin D deficiency Renal calculi Allergic rhinitis Mixed dyslipidemia Diabetes mellitus Right hip pain Right shoulder pain Hypotestosteronism Swelling of left hand Left hand pain Surgical History Hx of cystoscopy Hx laparoscopic cholecystectomy History of testicular surgery History of colonoscopy History of lithotripsy Current (pre-evaluation) Intake/Diet: Route: PO Diet Grade: Regular Liquid Consistencies: Thin Pre-Study Functional Oral Intake Scale (FOIS): 7- Total oral intake with no restrictions Pain: None reported at time of study Subjective: Patient is a 62 year old male referred for a modified barium swallow study by his dentistry professor, Dr. Tiburcio Rojas. Patient reports choking on hard and dry foods, as well as his saliva when he is sleeping. He had recent episode when swallowing bread, which resulted in patient choking and his performing the Heimlich maneuver on him, to which he expelled a very small amount of food. Patient denies pain when swallowing, states his difficulties started approximately 2-3 months ago. Patient says he drinks a lot of water because he has diabetes and is concerned that because he drinks his water very cold, the temperature is causing him to have trouble swallowing. He also mentioned he quit smoking 2 years ago. Oral Motor Exam Mouth Occlusion: Normal Oral-Facial Teeth Characteristics: Intact/Normal Oral-Facial Smile (Lips) Description: Normal Tongue Size: Normal Tongue Excursion Description: Normal Tongue Range of Movement Description: Normal Tongue Speed of Movement Description: Normal Tongue Movement Characteristics: Normal/Absent Food and Liquid Trials: Oral Impairment: Lip Closure: Did not test Oral Impairment: Tongue Control During Bolus Hold: 0=Cohesive bolus between tongue to palatal seal Oral Impairment: Bolus Preparation/Mastication: 0=Timely and efficient chewing and mashing Oral Impairment: Bolus Transport/Lingual Motion: 1= Delayed initiation of tongue motion Oral Impairment: Oral Residue: 2=Residue collection on oral structures Oral Impairment:Initiation of Pharyngeal Swallow: 1=Bolus head in valleculae Pharyngeal Impairment: Soft Palate Elevation: 0=No bolus between soft palate (SP)/pharyngeal wall (PW) Pharyngeal Impairment: Laryngeal Elevation: 1=Partial thyroid cartilage/arytenoids to epiglottic petiole movement Pharyngeal Impairment: Anterior Hyoid Excursion: 1=Partial anterior movement Pharyngeal Impairment: Epiglottic Movement: 0=Complete inversion Pharyngeal Impairment: Laryngeal Vestibular Closure:: 0=Complete: no air/contrast in laryngeal vestibule Pharyngeal Impairment: Pharyngeal Stripping Wave: 0=Present: complete Pharyngeal Impairment: Pharyngeal Contraction: Did not test Pharyngeal Impairment: Pharyngoesophageal Segment Openin=Partial distention/partial duration: partial obstruction of flow Pharyngeal Impairment: Tongue Base (TB) Retraction: 1=Trace column of contrast/air between TB and posterior PW Pharyngeal Impairment: Pharyngeal Residue: 1=Trace residue within or on pharyngeal structures Pharyngeal Impairment: Esophageal Clearance Upright Position: Did not test Impressions and Recommendations Clinical Observations: OBJECTIVE: Time-out: performed at 14:45 Evaluation Start: 14:30; Stop: 14:35 Patient Positioning: Standing Viewing Planes: LATERAL ONLY Contrast: MBSImP? Standardized Protocol using commercially prepared, standardized Barium viscosities, including: Varibar? THIN LIQUID (40% w/v, <15 cps) , Varibar? PUDDING (40% w/v, <4183-0554 cps) , 1/2 Shortbread Cookie (1 x1 x.25 ) MBSImP ID: [id number] MBSImP Results: Lip closure for intraoral bolus containment could not be assessed due to logistical reasons not related to physiologic impairment. Tongue control during bolus hold maintained a cohesive bolus held between tongue to palate seal. Bolus preparation and mastication resulted in timely and efficient chewing and mashing. Bolus transport/lingual motion demonstrated delayed initiation of tongue motion. Oral residue was a collection on oral structures. Initiation of the pharyngeal swallow occurred when the bolus head was in the valleculae. Soft palate elevation resulted in no bolus between the soft palate and the pharyngeal wall. Laryngeal elevation was decreased, with partial superior movement of the thyroid cartilage/partial approximation of the arytenoids to the epiglottic petiole. Anterior hyoid excursion demonstrated partial anterior movement. Epiglottic movement resulted in complete inversion. Laryngeal vestibular closure was complete, as indicated by no air or contrast within the laryngeal vestibule at the height of the swallow. Pharyngeal stripping wave was present and complete. Pharyngeal contraction could not be determined due to logistical reasons not related to physiologic impairment. Pharyngoesophageal segment opening demonstrated partial distension/partial duration, with partial obstruction of bolus flow. Tongue base retraction allowed a trace column of contrast or air between the retracted tongue base and the posterior pharyngeal wall. Pharyngeal residue was a trace within or on pharyngeal structures. Esophageal clearance in the upright position could not be assessed due to logistical reasons not related to physiologic impairment. Oral Impairment Score: 4 (absence of score, component 1) Pharyngeal Impairment Score: 3 (absence of score, component 13) Esophageal Impairment Score: --- (absence of score, component 17) Laryngeal Penetration and Aspiration: Neither penetration nor aspiration was observed in today's study with Cookie, Puree, Thin. ASSESSMENT: This exam was conducted by the radiologist and the speech pathologist. Patient was standing for lateral view and was able to feed himself without difficulty. He trialed Thin, Puree, and Regular solid consistencies. Oral phase was quite unremarkable. Note good tongue control with no spilling anteriorly from the lips nor posteriorly prior to swallowing. Mastication was timely and efficient. Mildly delayed AP transport, but with brisk lingual movement. Minimal residue on the tongue and palate, which cleared with subsequent swallows. Pharyngeal swallow trigger initiated as the bolus head reached the valleculae. No nasopharyngeal reflux. Partial laryngeal elevation with complete epiglottic inversion and complete laryngeal vestibular closure. No evidence of aspiration or penetration during this exam. Trace pooling of contrast in the valleculae with liquids and complete clearance with solids. Liquid Intake Recommendation: Thin Liquid Intake Strategies: Unrestricted Dietary Recommendations: Regular Medication Administration: Whole with Liquid Please contact the pharmacy regarding appropriate crushable or liquid drug formulations that are available whenever modified delivery is recommended. Compensatory Strategies Recommended: Sitting Upright (90 deg), Double Swallow, Small Bites and Sips, Alternate Liquids/Solids, Rate of Ingestion Change Recommendation for Speech Therapy: NA:Typical Evaluation Text Comment: Intake Recommendations: Route: PO Diet Grade: Regular Liquid Consistencies: Thin Post-Study Functional Oral Intake Scale (FOIS): 7- Total oral intake with no restrictions Good oral and pharyngeal clearance. No evidence of aspiration or penetration during this exam. Therapy Recommendations: There was no aspiration or penetration. Minimal residue was cleared with subsequent swallows. Recommend patient continue on REGULAR texture diet and THIN liquids with strategies to promote clearance: take small bites, chew food well, clear oral cavity before taking more bites, alternate bites with sips of liquid, dry swallow between bites. Further Speech Therapy is not indicated at this time, as imaging shows patient?s swallow to be functional. Recommend patient continue to monitor his swallowing, if there are any changes or worsening of symptoms, he may benefit from a repeat-assessment. Clinician - Supplemental, Miscellaneous Communication: It is important to note MBSS objective studies are snapshots in time and Patient function might vary with factors such as time of day or concomitant medical conditions. For this reason, the final treatment plan for this patient should rest with their medical care team. Additional recommendations should be considered with the totality of the Patient in mind. Thank for the opportunity to participate in the care of this patient. If you have any questions about the content of this report, please contact the [facility] at [facility]. Education: Education regarding findings from today's study and plans for therapy were provided to Patient and family/caregiver through Verbal Instruction. Understanding was expressed by the Patient and family/caregiver. Application Engineer Clinician/Clinical Fellow: No Supervisory Statement: N/A Speech Language Pathologist: Dyan Savage M.A., CCC-CERAMICS TEST ENGINEER
== END 2023-10-22 14:06 | disposition home or self-care (01) ==
LOC: HO.XRAY 14:05
PROVIDERS: PCP Internal Medicine; Visit Provider Internal Medicine
DX: R13.10 Dysphagia, unspecified (principal)
CPT/HCPCS: 74230; 92611

== ENCOUNTER → 2023-10-22 14:07 | Outpatient (BNV) | payer OTHER, SELFPAY | PROVIDERS: PCP Internal Medicine; Visit Provider Radiology Diagnostic Radiology | DX: R13.10 Dysphagia, unspecified (principal) | CPT/HCPCS: 74230 ==

== ENCOUNTER 2023-11-26 15:53 | Outpatient (AMB) | payer OTHER, SELFPAY ==
--- NOTE | 2023-11-26 16:07 | AM.OFFVISNUR ---
Intake Visit Reasons: Testosterone shot Allergies Iodinated Contrast Media [IV Dye, Iodine Containing] Allergy (Severe, Verified 09/02/23 16:40) ANAPHYLAXIS aspirin [Aspirin] Allergy (Mild, Verified 09/02/23 16:40) ITCHING ibuprofen [Ibuprofen] Allergy (Mild, Verified 09/02/23 16:40) NAUSEA Penicillins Allergy (Mild, Verified 09/02/23 16:40) ITCHING/SWELLING Gadolinium-Containing Contrast Medi [GADOLINIUM-CONTAINING CONTRAST] Allergy (Unknown, Verified 09/02/23 16:40) UNKNOWN iodine [IODINE] Allergy (Unknown, Verified 09/02/23 16:40) UNKNOWN morphine [MORPHINE] Allergy (Unknown, Verified 09/02/23 16:40) TACHYCARDIA oxycodone [From PERCOCET] Allergy (Unknown, Verified 09/02/23 16:40) N/V,H/A Sulfa (Sulfonamide Antibiotics) [SULFA (SULFONAMIDE ANTIBIOTICS)] Allergy (Unknown, Verified 09/02/23 16:40) UNKNOWN Office Meds testosterone cypionate 200 mg/mL intramuscular kit Performing Provider: Madi Amos MD [facility] [place] [facility] Administered by: Hortencia Og LPN on 11/26/23 16:12 Dose Route Admin Location Dispensed Lot Number Expiration Date [facility] Hydrostatic Tubing Tester 200 mg IM right buttocks 1 ea [id number] 11/23/24 2397-5165-28 [id number] Assessment & Plan Assessment & Plan Orders: Orders AMB Testosterone Injection Patient Supplied Today R7. - Other specified abnormal findings of blood chemistry Medications: New testosterone cypionate 200 mg IM ONCE 1 ea 0RF R79.89 - Other specified abnormal findings of blood chemistry Refilled testosterone cypionate 200 mg IM Q4W 1 mL 2RF 28 days E34.9 - Endocrine disorder, unspecified
== END 2023-11-26 16:19 | disposition home or self-care (01) ==
PROVIDERS: PCP Internal Medicine; Visit Provider Internal Medicine
DX: R79.89 Other specified abnormal findings of blood chemistry (principal)

== ENCOUNTER → 2023-11-26 15:53 | Outpatient (BNVA) | payer OTHER, SELFPAY | PROVIDERS: PCP Internal Medicine; Visit Provider Internal Medicine | DX: R79.89 Other specified abnormal findings of blood chemistry (principal); E34.9 Endocrine disorder, unspecified | CPT/HCPCS: 96372 ==

== ENCOUNTER 2023-12-18 15:19 | Outpatient (AMB) | payer OTHER, SELFPAY ==
[2023-12-18 15:28] VITALS: BP 104/62; PULSE 95; O2SAT 96; BMI 25.8
--- NOTE | 2023-12-18 15:28 | MHC.OFFVIS ---
Vital Signs 12/18/23 15:28 Height 5 ft 6 in Weight 160 lb BMI 25.8 BP 104/62 Blood Pressure Location Lt brachial Position Sitting Pulse 95 Pulse Source Pulse Oximeter Pulse Oximetry (%) 96 Oxygen Delivery Method Room Air Intake Visit Reasons: Obstructive sleep apnea Intake Note: pt is here for follow up and states he is still having problem with eating, (had barium swallow) and states his breathing is affected by when he is falling asleep with some gasping and a very dry throat. Bench Worker Hollow Handle Required: No Allergies Iodinated Contrast Media [IV Dye, Iodine Containing] Allergy (Severe, Verified 12/18/23 16:23) ANAPHYLAXIS aspirin [Aspirin] Allergy (Mild, Verified 12/18/23 16:23) ITCHING ibuprofen [Ibuprofen] Allergy (Mild, Verified 12/18/23 16:23) NAUSEA Penicillins Allergy (Mild, Verified 12/18/23 16:23) ITCHING/SWELLING Gadolinium-Containing Contrast Medi [GADOLINIUM-CONTAINING CONTRAST] Allergy (Unknown, Verified 12/18/23 16:23) UNKNOWN iodine [IODINE] Allergy (Unknown, Verified 12/18/23 16:23) UNKNOWN morphine [MORPHINE] Allergy (Unknown, Verified 12/18/23 16:23) TACHYCARDIA oxycodone [From PERCOCET] Allergy (Unknown, Verified 12/18/23 16:23) N/V,H/A Sulfa (Sulfonamide Antibiotics) [SULFA (SULFONAMIDE ANTIBIOTICS)] Allergy (Unknown, Verified 12/18/23 16:23) UNKNOWN Medication List - Last Reconciled 12/18/23 by Tiburcio Rojas MD albuterol sulfate 90 mcg/actuation (Ventolin HFA) 2 puffs PO Q4-6H PRN blood sugar diagnostic (FreeStyle Lite Strips) USE LAN LO INDICADO DOS VECES AL MARTÍN blood-glucose meter As directed twice a day blood-glucose meter (FreeStyle Lite Meter kit) As directed cetirizine 10 mg PO DAILY PRN 90 days cholecalciferol (vitamin D3) 25 mcg PO DAILY 90 days clonazepam 1 mg PO BID PRN 30 days clotrimazole-betamethasone 1-0.05 % 1 appl topical BID 4 weeks [DIABETIC SHOES As directed] fluticasone propionate 50 mcg/actuation 1 spray intranasal DAILY lancets (FreeStyle Lancets) As directed-CHECK BLOOD SUGAR TWICE A DAY - Dx: E11.9 loratadine 10 mg PO DAILY PRN 90 days metformin 500 mg PO BID 3 months mometasone 0.1% 1 appl topical DAILY PRN olopatadine 0.1% (Pataday Twice Daily Relief) 1 drp ophthalmic (eye) BID PRN OneTouch Ultra2 Meter (blood-glucose meter) As directed once a day NS sertraline 50 mg PO DAILY 30 days testosterone cypionate 200 mg IM .qo week testosterone cypionate 200 mg IM Q4W 28 days Do you need a note to return to daycare/school/sports/work: No HPI HPI Obstructive sleep apnea: Details: THIS 63 YEARS OLD GENTLEMAN COMES FOR FOLLOW-UP ALONG WITH HIS ( KEILY ) HE DOES HAVE MILD INTERMITTENT COUGH AND SOME SHORTNESS OF BREATH, BEING TREATED FOR POSSIBLE MILD BRONCHIAL ASTHMA WITH VENTOLIN INHALER TO BE USED ONLY P.R.N.. ALSO HAS MILD NASAL CONGESTION OFF AND ON DUE TO ALLERGIC RHINITIS AND USES LORATADINE 10 MG P.R.N. ALSO FLONASE SPRAY P.R.N.. HE HAS MILD RETROGANTHIA , AND DIFFICULTY IN SLEEPING, THINKING THAT HE MAY HAVE SLEEP APNEA. HOWEVER HIS HOME-BASED SLEEP STUDY DID NOT SHOW ANY SIGNIFICANT OBSTRUCTIVE SLEEP APNEA. HE HAS BEEN COMPLAINING OF DIFFICULTY IN SWALLOWING. IS BARIUM SWALLOW WAS BASICALLY NORMAL, HE DOES HAVE SOME DELAYED SWALLOWING. HAS BEEN INSTRUCTED BY THE SPEECH MEDICINE SERVICE TO USE SOFT DIET AND SWALLOW WELL. [facility] Medical History Choking due to phlegm LEIA (obstructive sleep apnea) Snoring Retrognathia Somnolence, daytime ILD (interstitial lung disease) Abnormal chest xray Chest pain Hx of flexible sigmoidoscopy IBS (irritable bowel syndrome) Arthritis Cigar smoker Anxiety Vitamin D deficiency Renal calculi Allergic rhinitis Mixed dyslipidemia Diabetes mellitus Right hip pain Right shoulder pain Hypotestosteronism Swelling of left hand Left hand pain Surgical History Hx of cystoscopy Hx laparoscopic cholecystectomy History of testicular surgery History of colonoscopy History of lithotripsy Family History Father Prostate cancer Mother Hypertension Hypercholesterolemia Brother Hypertension Diabetes Other Hypotestosteronism Social History Housing: Apartment Alcohol intake: never Patient Tobacco Use Status: Former Tobacco user Tobacco use type: Cigar Cigarettes Per Day: 3 Years Smoked: pt states quit 01/2022 e-Cigarette/Vaping Use: Never Used Second Hand Smoke Exposure: Yes Advance Directives Date on File: 11/07/14 service: No Current occupational status: disabled Cognitive needs: No Hearing needs: No Vision needs: Yes Review of Systems Const All systems reviewed & are unremarkable except as noted in HPI and below Eyes Reports no additional complaints ENT Reports nasal congestion (Mild chronic) Card Reports chest pain (Chest pain and is more like muscular and not cardiac related), Denies irregular heart rhythm and Denies leg edema Resp Reports as per HPI GI Reports constipation Reports erectile dysfunction Musc Denies back pain, Denies myalgias and Denies arthralgias Skin/Breast Reports system reviewed and no additional complaints, except as documented Neuro Reports no additional complaints Psych Reports anxiety Physical Exam Vital Signs: Last Vital Signs Pulse 95 12/18/23 15:28 BP 104/62 12/18/23 15:28 Pulse Ox 96 12/18/23 15:28 Oxygen Delivery Method Room Air 12/18/23 15:28 BMI result Body Mass Index 25.8 Const General: healthy appearing, comfortable, no acute distress, alert and awake Orientation/consciousness: patient oriented x3 HEENT Head: Yes normal to inspection General nose exam: No nasal polyps present and No nasal discharge present Face and sinus: Yes sinuses nontender Mouth: oropharynx normal (OROPHARYNX IS NARROW AND TONGUE IS PLACED BACK, MALLAMPATI CLASS 3) Teeth and gingiva: other (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 Cardio Palpation: normal PMI Rate: regular rate Rhythm: regular rhythm Heart sounds: no gallops and no murmurs Peripheral pulses: Peripheral pulses 2+ throughout GI Palpation (GI): Soft to palpation, nontender, No hepatosplenomegaly present and no masses Auscultation: normal bowel sounds Back/Spine/Pelvis Thoracic/Lumbar Spine: thoracic and lumbar spine normal to inspection Skin General skin exam: no rashes or lesions noted Neuro General: patient oriented x3 and no focal motor deficits Cranial nerves: Yes CN's II-XII intact bilaterally Extrem General: Yes normal to inspection, Yes no clubbing, cyanosis or edema and Yes no calf tenderness Psych Appearance: grossly normal and well kempt Speech and movement: Normal speech and movement present Results Reviewed Results Reviewed: RESULTS OF THE BARIUM SWALLOW WERE REVIEWED WITH HIM Assessment & Plan Assessment & Plan (1) Choking due to phlegm: Comment: He describes typical choking attacks due to mucus in his throat or sometime after eating bread. His had to do Heimlich. Maneuver a few times This seem to be due to muscular discoordination. BARIUM SWALLOW TEST WAS NORMAL. Code(s): T17.310A - Gastric contents in larynx causing asphyxiation, initial encounter Category: Medical Plan: HE IS REASSURED. ADVISED TO EAT SOFT DIET. CHEW WELL AND, DRINK PLENTY OF FLUIDS. (2) Retrognathia: Comment: THIS GENTLEMAN IS NOT OVERWEIGHT AND THE MAIN REASON FOR HIS SUSPECTED SLEEP APNEA IS RETROGANTHIA OF THE LOWER JAW. HE HAS BEEN AFRAID OF HAVING SLEEP APNEA. BUT HIS SLEEP STUDY WAS NEGATIVE FOR SLEEP APNEA, IT ONLY SHOWED MILD NOCTURNAL HYPOXEMIA WHICH WAS NONSPECIFIC. Code(s): M26.19 - Other specified anomalies of jaw-cranial base relationship Category: Medical Plan: PATIENT IS EXPLAINED ABOUT THE FINDINGS OF SLEEP STUDY ONCE AGAIN (3) ILD (interstitial lung disease): Comment: History of smoking cigars. CT scan changes of chronic interstitial lung disease/ most likely pulmonary fibrosis. The patient is almost asymptomatic except for mild intermittent cough. Code(s): J84.9 - Interstitial pulmonary disease, unspecified Category: Medical Plan: IS GOOD THAT HE HAS STOP SMOKING CIGARS. WILL CONTINUE TO MONITOR HIS BREATHING STATUS. AT PRESENT HE IS ASYMPTOMATIC AND WOULD NOT NEED ANY TREATMENT. (4) Allergic rhinitis: Comment: Chronic nasal congestion and postnasal discharge, secondary to allergic rhinitis,. controlled Code(s): J30.9 - Allergic rhinitis, unspecified Category: Medical Qualifiers: Allergic rhinitis trigger: unspecified Allergic rhinitis seasonality: unspecified Qualified Code(s): J30.9 - Allergic rhinitis, unspecified Plan: OK TO USE LORATADINE OR CETIRIZINE 10 MG ONCE A DAY NEEDED. ALSO KIT TO USE FLONASE 1 SPRAY EACH NOSTRIL DAILY. Coding Level of Care Code Est Pt Level 3 (10654) Diagnoses Choking due to phlegm T17.310A Retrognathia M26.19 ILD (interstitial lung disease) J84.9 Allergic rhinitis, unspecified seasonality, unspecified trigger J30.9 Allergic rhinitis trigger: unspecified Allergic rhinitis seasonality: unspecified
== END 2023-12-18 16:08 | disposition home or self-care (01) ==
PROVIDERS: PCP Internal Medicine; Visit Provider Internal Medicine
DX: T17.310A Gastric contents in larynx causing asphyxiation, initial encounter (principal); M26.19 Other specified anomalies of jaw-cranial base relationship; J84.9 Interstitial pulmonary disease, unspecified; J30.9 Allergic rhinitis, unspecified
CPT/HCPCS: 99213

== ENCOUNTER → 2023-12-18 15:19 | Outpatient (BNVA) | payer OTHER, SELFPAY | PROVIDERS: PCP Internal Medicine; Visit Provider Internal Medicine | DX: J84.9 Interstitial pulmonary disease, unspecified (principal); J30.9 Allergic rhinitis, unspecified; G47.33 Obstructive sleep apnea (adult) (pediatric); M26.19 Other specified anomalies of jaw-cranial base relationship; T17.310A Gastric contents in larynx causing asphyxiation, initial encounter | CPT/HCPCS: 99212 ==

== ENCOUNTER 2024-03-05 15:56 | Outpatient (AMB) | payer OTHER, SELFPAY ==
--- NOTE | 2024-03-05 16:06 | AM.OFFVISNUR ---
Intake Visit Reasons: Testosterone Shot Allergies Iodinated Contrast Media [IV Dye, Iodine Containing] Allergy (Severe, Verified 12/18/23 16:23) ANAPHYLAXIS aspirin [Aspirin] Allergy (Mild, Verified 12/18/23 16:23) ITCHING ibuprofen [Ibuprofen] Allergy (Mild, Verified 12/18/23 16:23) NAUSEA Penicillins Allergy (Mild, Verified 12/18/23 16:23) ITCHING/SWELLING Gadolinium-Containing Contrast Medi [GADOLINIUM-CONTAINING CONTRAST] Allergy (Unknown, Verified 12/18/23 16:23) UNKNOWN iodine [IODINE] Allergy (Unknown, Verified 12/18/23 16:23) UNKNOWN morphine [MORPHINE] Allergy (Unknown, Verified 12/18/23 16:23) TACHYCARDIA oxycodone [From PERCOCET] Allergy (Unknown, Verified 12/18/23 16:23) N/V,H/A Sulfa (Sulfonamide Antibiotics) [SULFA (SULFONAMIDE ANTIBIOTICS)] Allergy (Unknown, Verified 12/18/23 16:23) UNKNOWN Office Meds testosterone cypionate 200 mg/mL intramuscular kit Performing Provider: Madi Amos MD [facility] [place] [facility] Administered by: Hortencia Og LPN on 03/05/24 16:07 Dose Route Admin Location Dispensed Lot Number Expiration Date [facility] Order Planner 200 mg IM right buttock 1 ea [id number] 11/13/24 0624-3174-33 [facility] Assessment & Plan Assessment & Plan Orders: Orders AMB Testosterone Injection Patient Supplied N/C Today R79.89 - Other specified abnormal findings of blood chemistry Medications: New testosterone cypionate 200 mg IM ONCE 1 ea 0RF R79.89 - Other specified abnormal findings of blood chemistry
== END 2024-03-05 16:29 | disposition home or self-care (01) ==
PROVIDERS: PCP Internal Medicine; Visit Provider Internal Medicine
DX: R79.89 Other specified abnormal findings of blood chemistry (principal)

== ENCOUNTER → 2024-03-05 15:56 | Outpatient (BNVA) | payer OTHER, SELFPAY | PROVIDERS: PCP Internal Medicine; Visit Provider Internal Medicine | DX: R79.89 Other specified abnormal findings of blood chemistry (principal) | CPT/HCPCS: 96372 ==

== ENCOUNTER 2024-03-30 10:35 | Outpatient (AMB) | payer OTHER, SELFPAY ==
[2024-03-30 10:50] VITALS: BP 116/78; PULSE 93; O2SAT 96; BMI 25.7
--- NOTE | 2024-03-30 10:50 | A.OFFPC_ITS ---
Vital Signs 03/30/24 10:50 Height 5 ft 6 in Weight 159 lb 8 oz BMI 25.7 BP 116/78 Blood Pressure Location Lt brachial Position Sitting Pulse 93 Pulse Source Pulse Oximeter Pulse Oximetry (%) 96 Oxygen Delivery Method Room Air Intake Visit Reasons: DM, hyperlipidemia, dysphagia, leg numbness Clamper Required: No Accompanied by: Self / Same As Patient Allergies Iodinated Contrast Media [IV Dye, Iodine Containing] Allergy (Severe, Verified 03/30/24 11:24) ANAPHYLAXIS aspirin [Aspirin] Allergy (Mild, Verified 03/30/24 11:24) ITCHING ibuprofen [Ibuprofen] Allergy (Mild, Verified 03/30/24 11:24) NAUSEA Penicillins Allergy (Mild, Verified 03/30/24 11:24) ITCHING/SWELLING Gadolinium-Containing Contrast Medi [GADOLINIUM-CONTAINING CONTRAST] Allergy (Unknown, Verified 03/30/24 11:24) UNKNOWN iodine [IODINE] Allergy (Unknown, Verified 03/30/24 11:24) UNKNOWN morphine [MORPHINE] Allergy (Unknown, Verified 03/30/24 11:24) TACHYCARDIA oxycodone [From PERCOCET] Allergy (Unknown, Verified 03/30/24 11:24) N/V,H/A Sulfa (Sulfonamide Antibiotics) [SULFA (SULFONAMIDE ANTIBIOTICS)] Allergy (Unknown, Verified 03/30/24 11:24) UNKNOWN Medication List - Last Reconciled 03/30/24 by Madi Amos MD albuterol sulfate 90 mcg/actuation (Ventolin HFA) 2 puffs PO Q4-6H PRN blood sugar diagnostic (FreeStyle Lite Strips) USE LAN LO INDICADO DOS VECES AL MARTÍN blood-glucose meter As directed twice a day blood-glucose meter (FreeStyle Lite Meter kit) As directed cetirizine 10 mg PO DAILY PRN 90 days cholecalciferol (vitamin D3) 25 mcg PO DAILY 90 days clonazepam 1 mg PO BID PRN 30 days clotrimazole-betamethasone 1-0.05 % 1 appl topical BID 4 weeks [diabetic boots As directed] [DIABETIC SHOES As directed] fluticasone propionate 50 mcg/actuation 1 spray intranasal DAILY lancets (FreeStyle Lancets) As directed-CHECK BLOOD SUGAR TWICE A DAY - Dx: E11.9 loratadine 10 mg PO DAILY PRN 90 days magnesium oxide 400 mg PO BEDTIME 90 days metformin 500 mg PO BID 3 months mometasone 0.1% 1 appl topical DAILY PRN olopatadine 0.1% (Pataday Twice Daily Relief) 1 drp ophthalmic (eye) BID PRN OneTouch Ultra2 Meter (blood-glucose meter) As directed once a day NS sertraline 50 mg PO DAILY 30 days testosterone cypionate 200 mg IM .qo week testosterone cypionate 200 mg IM Q4W 28 days Tobacco use date assessed: 03/30/24 Dental Screening Dental Screen Date: 03/30/24 Did you have a dental visit in the last 12 months?: No Did you have a dental problem in the last 6 months where you did not have access to dental care?: No Was dental information given to patient?: No HPI DM, hyperlipidemia, dysphagia, leg numbness HPI Details Patient comes in today for his follow up visit States that he has been experiencing increased pain over his right hip for the past couple of weeks Notes that the pain is not really alleviated or made worse with activity or positioning as it still bothers him when he is sitting or is lying down in bed Patient points to a spot on the side of his right hip just under his right iliac crest as the area where his pain is mostly located at He does not recall any recent injury or trauma to his right hip He also reports that he has been experiencing on and off cramping pain in his toes for the past few weeks Notes that these seem to occur more often at night and he describes them as a severe cramping pain in the toes of both feet and when they occur, he would notice his toes twisting/turning to the sides, which he states makes the pain feel much worse He denies any headaches or dizziness Denies any chest pains, no increased shortness of breath No nausea/vomiting, no abdominal pain No change in bowel habits noted He was not able to get any follow up labs done prior to his appointment today - his states that she can help him get these done MACARIO (possibly tomorrow morning) as long as his orders are still in his file States that he may need his Clonazepam Rx refilled but advised them that we just refilled it and he picked up his Rx on 03/12/2024 so he is not due for another 2 weeks on this FORMERLY [facility], [facility] Medical History (Updated 03/30/24 @ 12:21 by Madi Amos MD) Mixed hyperlipidemia Choking due to phlegm LEIA (obstructive sleep apnea) Snoring Retrognathia Somnolence, daytime ILD (interstitial lung disease) Abnormal chest xray Chest pain Hx of flexible sigmoidoscopy IBS (irritable bowel syndrome) Arthritis Cigar smoker Anxiety Vitamin D deficiency Renal calculi Allergic rhinitis Diabetes mellitus Right hip pain Right shoulder pain Hypotestosteronism Swelling of left hand Left hand pain Surgical History Hx of cystoscopy Hx laparoscopic cholecystectomy History of testicular surgery History of colonoscopy History of lithotripsy Family History Father Prostate cancer Mother Hypertension Hypercholesterolemia Brother Hypertension Diabetes Other Hypotestosteronism Social History Housing: Apartment Alcohol intake: never Patient Tobacco Use Status: Former Tobacco user Tobacco use type: Cigar Cigarettes Per Day: 3 Years Smoked: pt states quit 01/2022 e-Cigarette/Vaping Use: Never Used Second Hand Smoke Exposure: Yes Advance Directives Date on File: 11/07/14 service: No Current occupational status: disabled Cognitive needs: No Hearing needs: No Vision needs: Yes Questionnaire PHQ-9 Over the last 2 weeks, how often have you been bothered by any of the following problems? 1. Little interest or pleasure in doing things: not at all 2. Feeling down, depressed, or hopeless: not at all 3. Trouble falling or staying asleep, or sleeping too much: not at all 4. Feeling tired or having little energy: not at all 5. Poor appetite or overeating: not at all 6. Feeling bad about yourself - or that you are a failure or have let yourself or your family down: not at all 7. Trouble concentrating on things, such as reading the newspaper or watching television: not at all 8. Moving or speaking so slowly that other people could have noticed. Or the opposite - being so fidgety or restless that you have been moving around a lot more than usual: not at all 9. Thoughts that you would be better off or of hurting yourself in some way: not at all Total score: 0 Depression Screening Interpretation: Negative Depression Screening Done: Yes 32764 - PHQ-9 Billing: Yes Source: Developed by Drs. Onesimo Swenson, Juana Giordano, Spencer Swan and colleagues, with an educational cesar from [employer]. Thrive Questionnaire Date Thrive assessed: 03/30/24 I am a: Patient What is your living situation today?: I have a steady place to live Within the past 12 months, did the food you bought not last and you didn't have the money to get more?: Never true Within the past 12 months, did you worry whether your food would run out before you got money to buy more?: Never true Do you have trouble paying for medicines?: No Do you have trouble getting transportation to medical appointments?: No Do you have trouble paying your heating and electricity bill?: No Do you have trouble taking care of your child, family member or friend?: No Do you have trouble with day-to-day activities such as bathing, preparing meals, shopping, managing finances, etc.?: No Are you currently unemployed and looking for a job?: No Are you interested in more education?: No Please select the resources that you would like help with: None Currently or been in a relationship where the following occur: No concerns reported THRIVE Score: 0 AUDIT C Alcohol Use Questionnaire (AUDIT-C) 1. How often do you have a drink containing alcohol?: Never 3. How often do you have six or more drinks on one occasion?: Never Total Score: 0 Score Reviewed/Action Taken: Yes MALIK-7 AMB Questionnaire MALIK-7 Date MALIK - 7 assessed: 03/30/24 Feeling nervous, anxious, or on edge: 0 = Not at all Not being able to stop or control worryin = Not at all Worrying too much about different things: 0 = Not at all Trouble relaxin = Not at all Being so restless that it is hard to sit still: 0 = Not at all Becoming easily annoyed or irritable: 0 = Not at all Feeling afraid as if something awful might happen: 0 = Not at all Total MALIK-7 score (0-4 normal; 5-9 mild; 10-14 moderate; 15-21 severe): 0 Source: Developed by Juana FoleyW. Pasquale, Spencer Swan and colleagues, with an educational cesar from [employer]. Review of Systems Const Denies chills, Reports fatigue, Denies fever(s) and Denies headache(s) ENT Denies dysphagia, Denies dizziness, Denies otalgia, Denies headache(s), Denies neck pain, Denies odynophagia and Denies sore throat Card Denies chest pain, Denies syncope, Denies palpitations and Denies dyspnea Resp Denies chest congestion, Denies cough and Denies dyspnea GI Denies abdominal pain, Denies constipation, Denies dysphagia, Denies heartburn, Denies diarrhea, Reports loose stools (at times (S/P cholecystectomy) ), Denies nausea, Denies odynophagia and Denies vomiting Denies dysuria, Denies nocturia and Denies urinary frequency Musc Details: (+) on and off cramping pain of toes of both feet - see HPI Reports back pain (over the lower back), Reports arthralgias (over the right hip (increased lately) and in both hands) and Denies neck pain Skin/Breast Denies rash Neuro Denies dizziness, Denies syncope and Denies headache(s) Psych Reports anxiety Endo Reports fatigue and Denies palpitations Physical exam (Primary Care) Vital Signs: Last Vital Signs Pulse 93 03/30/24 10:50 BP 116/78 03/30/24 10:50 Pulse Ox 96 03/30/24 10:50 Oxygen Delivery Method Room Air 03/30/24 10:50 BMI result Body Mass Index 25.7 Tobacco/Smoking Status: Tobacco use Status Tobacco use date assessed 03/30/24 03/30/24 10:56 Patient Tobacco Use Status Former Tobacco user 03/30/24 10:56 Tobacco use type Cigar 03/30/24 10:56 e-Cigarette/Vaping Use Never Used 03/30/24 10:56 PHQ-9: PHQ-9 Score PHQ-9: Total score 0 03/30/24 11:28 Depression Screening Interpretation: Negative Thrive Assessment: Date of Thrive Assessment Date Thrive assessed 03/30/24 03/30/24 10:56 Currently or been in a relationship where the following occur: No concerns reported Const General: no acute distress and alert HENMT Ears: TM's normal bilaterally and EAC's normal Throat: Yes posterior oropharynx normal and Yes tonsils normal (no TP congestion) Neck Neck: Yes supple and No lymphadenopathy Thyroid: Thyroid normal Resp Auscultation: clear to auscultation bilaterally, no rales and no wheezes Cardio Rate: regular rate Rhythm: regular rhythm Heart sounds: no murmurs GI Palpation (GI): Soft to palpation and nontender Auscultation: normal bowel sounds General: Yes no CVA tenderness Back/Spine/Pelvis Back: no CVA tenderness Thoracic/Lumbar Spine: lumbar spinal tenderness (mild) Skin Rashes: no rashes Extrem General: Yes no clubbing, cyanosis or edema Right lower extremity: hip/thigh Details: tenderness Location: of the hip Location: laterally Results AMB Hemoglobin A1c AMB Hemoglobin A1c 6.7 % Last Edit by JOSE FRANCISCO Almaraz on 03/30/24 11 :29 Results Reviewed Results Reviewed: Laboratory Last Values Hgb A1c (Clinic) 6.7 % (4.0-6.0) H 03/30/24 11:27 Coding Level of Care Code Est Pt Level 4 (29802) Diagnoses Right hip pain M25.551 Cramping of feet R25.2 Type 2 diabetes mellitus without complication, without long-term current use of insulin E11.9 Diabetes mellitus complication status: without complication Diabetes mellitus terminal operator insulin use: without intermediate use Diabetes mellitus type: type 2 Mixed hyperlipidemia E78.2 ILD (interstitial lung disease) J84.9 Allergic rhinitis, unspecified seasonality, unspecified trigger J30.9 Allergic rhinitis trigger: unspecified Allergic rhinitis seasonality: unspecified Hypotestosteronism E34.9 Vitamin D deficiency E55.9 Renal calculi N20.0 Anxiety F41.9 Additional Codes PHQ-9 - 33066 - PHQ-9 Billing: Yes ([id number]) Assessment & Plan Assessment & Plan (1) Right hip pain: Code(s): M25.551 - Pain in right hip Category: Medical Plan: Will send patient for updated x-rays of the right hip for further evaluation X-rays of the hips done back on 07/08/2022 revealed (+) small ossicle adjacent to the superior lateral hip joint similar to previous exam in March 2020 Will also refer him to orthopedics for further evaluation and management of his increasing right hip pains (2) Cramping of feet: Code(s): R25.2 - Cramp and spasm Category: Medical Plan: Patient is instructed to get his previously ordered labs done MACARIO (orders have been updated today) to help further evaluate his current symptoms Will also include a serum magnesium level to his labs Will start him for now on MagOx 400 mg Q HS (3) Diabetes mellitus: Comment: taking metformin Code(s): E11.9 - Type 2 diabetes mellitus without complications Category: Medical Qualifiers: Diabetes mellitus complication status: without complication Diabetes mellitus terminal operator insulin use: without intermediate use Diabetes mellitus type: type 2 Qualified Code(s): E11.9 - Type 2 diabetes mellitus without complications Plan: His in-office HgbA1c today is at 6.7% - goal is at least <7.0% but ideally <6.5% although his HgbA1c was at 5.7% when previously checked in April 2023 Reinforced diabetic diet Continue Metformin 500 mg BID (4) Mixed hyperlipidemia: Code(s): E78.2 - Mixed hyperlipidemia Category: Medical Plan: Patient has not had any follow up labs done since June 2023 and his will help him try to get these done MACARIO Reinforced low cholesterol diet Will recheck his labs in 3 months (5) ILD (interstitial lung disease): Comment: History of smoking cigars. CT scan changes of chronic interstitial lung disease/ most likely pulmonary fibrosis. The patient is almost asymptomatic except for mild intermittent cough. Code(s): J84.9 - Interstitial pulmonary disease, unspecified Category: Medical Plan: Patient still has ARORA at times but symptoms are mostly mild Follow up with pulmonary (Dr. Rojas) as scheduled (6) Allergic rhinitis: Comment: Chronic nasal congestion and postnasal discharge, secondary to allergic rhinitis,. controlled Code(s): J30.9 - Allergic rhinitis, unspecified Category: Medical Qualifiers: Allergic rhinitis trigger: unspecified Allergic rhinitis seasonality: unspecified Qualified Code(s): J30.9 - Allergic rhinitis, unspecified Plan: Continue Cetirizine 10 mg QD PRN and Fluticasone 50 mcg nasal spray QD PRN He takes Loratadine 10 mg QD PRN if his symptoms are milder (7) Hypotestosteronism: Code(s): E34.9 - Endocrine disorder, unspecified Category: Medical Plan: Patient's testosterone level was low when it was last checked in April 2023 Continue Testosterone injections 200 mg every 4 weeks Will include this to be rechecked MACARIO when he goes for his labs MACARIO Will continue to monitor his serum testosterone level regularly (8) Vitamin D deficiency: Code(s): E55.9 - Vitamin D deficiency, unspecified Category: Medical Plan: Continue Vitamin D3 1000 units QD Will recheck his Vitamin D level for follow up (9) Renal calculi: Comment: S/P ESWL last year Code(s): N20.0 - Calculus of kidney Category: Medical Plan: Patient has been asymptomatic lately with regards to this Follow up with urology as scheduled (10) Anxiety: Code(s): F41.9 - Anxiety disorder, unspecified Category: Medical Plan: Continue Clonazepam 1 mg 1 to 2 tablets BID PRN We tried starting him on Sertraline 50 mg Q AM previously but patient did not feel that he needed to continue on it and self-discontinued the medication shortly afterwards Plan Follow up in 3 months Orders: Orders Comprehensive [place]. Panel Fast 3 Months E78.00 - Pure hypercholesterolemia, unspecified Microalbumin, Random (w Creat) 3 Months E11.9 - Type 2 diabetes mellitus without complications UA CC w/rflx Micro + Cult 3 Months R30.0 - Dysuria Vitamin D 25-OH Total 3 Months E55.9 - Vitamin D deficiency, unspecified Testosterone, Free/Total Today R79.89 - Other specified abnormal findings of blood chemistry Magnesium Today E83.42 - Hypomagnesemia XR hip RT min 2V Today M25.551 - Pain in right hip AMB Hemoglobin A1c Today Z13.9 - Encounter for screening, unspecified Hemoglobin A1c 3 Months E11.9 - Type 2 diabetes mellitus without complications Lipid Panel 3 Months E78.00 - Pure hypercholesterolemia, unspecified Complete Blood Count Auto Diff 3 Months D64.9 - Anemia, unspecified TSH reflex Free T4 3 Months E78.00 - Pure hypercholesterolemia, unspecified Referrals Orthopedics Referral M25.551 - Pain in right hip Medications: New magnesium oxide 400 mg PO BEDTIME 90 days 90 caps 1RF cramping pain in both feet R25.2 - Cramp and spasm
--- OUTSIDE RECORDS SUMMARY | 2024-03-30 11:30 | XMS_ITS | Clinical Summary ---
Author Organization [facility] Address [address] [place] [address] Care Team Providers Care Professor Of Environmental Engineering Name Role Phone Unavailable Primary Care Provider Unavailabl e Social History Tobacco Use Types Packs/Day Years Used Date Smoking Tobacco: Never Assessed Sex and Gender Information Value Date Recorded Sex Assigned at Male 12/24/2021 10:15 AM EDT Legal Sex Male 10:15 AM EDT Gender Identity Male 03/17/2023 10:13 AM EST Sexual Orientation Straight 03/17/2023 10 :07 AM EST Plan of Treatment Health Maintenance Due Date Last Done Comments CT Colonography 1960 Colonoscopy 1960 Colorectal Cancer Screening 1960 Depression Screening 1960 FIT DNA/Cologuard 1960 FIT 1960 FOBT 1960 HIV Screening 1960 Lipid Panel 1960 SDOH Screening 1960 Sigmoidoscopy 1960 Alcohol/Substance Use Screening 1972 Tobacco Screening 1972 Hepatitis C Screening 1978 DTaP/Tdap/Td Vaccines (1 - Tdap) 12/07/1979 Pneumococcal Vaccine: 50+ Years (1 of 1 - PCV) 2010 Zoster Vaccines (1 of 2) 2010 COVID-19 Vaccine ( - season) 2023 06/28/2021, 05/23/2020, 04/25/2020 Influenza Vaccine (#1) 2023 3, 12/14/2020, 02/03/2020, Additional history exists RSV Patients and Patients Aged 60 years or older (1 - 1-dose 75+ series) 12/07/2035 HIB Vaccines Aged Out No longer eligi ble based on patient's age to complete this topic HPV Vaccines Aged Out No longer eligi ble based on patient's age to complete this topic Hepatitis A Vaccines Aged Out No long er eligible based on patient's age to complete this topic Hepatitis B Vaccines Aged Out No long er eligible based on patient's age to complete this topic IPV Vaccines Aged Out No longer eligi ble based on patient's age to complete this topic Meningococcal Vaccine Aged Out No star jasen eligible based on patient's age to complete this topic RSV under 20 months Aged Out No longe r eligible based on patient's age to complete this topic Rotavirus Vaccines Aged Out No longer eligible based on patient's age to complete this topic Insurance [facility] STANDARD
--- OUTSIDE RECORDS SUMMARY | 2024-03-30 11:30 | XMS_ITS | Encounter Summary ---
Author Organization [facility] Address [address] [place] [address] Care Team Providers Care Middle School Sports Coach Name Role Phone Unavailable Primary Care Provider Unavailabl e Encounter Details Date Type Department Care Team (Latest Contact Info) Description 10/19/2018 Abstract [facility] CONVERSIONS Dental, Provider, DDS Social History Tobacco Use Types Packs/Day Years Used Date Smoking Tobacco: Never Assessed Sex and Gender Information Value Date Recorded Sex Assigned at Male 12/24/2021 10:15 AM EDT Legal Sex Male 10:15 AM EDT Gender Identity Male 03/17/2023 10:13 AM EST Sexual Orientation Straight 03/17/2023 10 :07 AM EST documented as of this encounter Plan of Treatment Not on file documented as of this encounter Visit Diagnoses Not on filedocumented in this encounter
== END 2024-03-30 11:34 | disposition home or self-care (01) ==
PROVIDERS: PCP Internal Medicine; Visit Provider Internal Medicine
DX: M25.551 Pain in right hip (principal); E11.69 Type 2 diabetes mellitus with other specified complication; J84.9 Interstitial pulmonary disease, unspecified; R25.2 Cramp and spasm; E78.2 Mixed hyperlipidemia; J30.9 Allergic rhinitis, unspecified; E34.9 Endocrine disorder, unspecified; E55.9 Vitamin D deficiency, unspecified; N20.0 Calculus of kidney; F41.9 Anxiety disorder, unspecified

== ENCOUNTER → 2024-03-30 10:35 | Outpatient (BNVA) | payer OTHER, SELFPAY | PROVIDERS: PCP Internal Medicine; Visit Provider Internal Medicine | DX: M25.551 Pain in right hip (principal); R25.2 Cramp and spasm; E11.9 Type 2 diabetes mellitus without complications; E78.2 Mixed hyperlipidemia; J84.9 Interstitial pulmonary disease, unspecified; J30.9 Allergic rhinitis, unspecified; E34.9 Endocrine disorder, unspecified; E55.9 Vitamin D deficiency, unspecified; F41.9 Anxiety disorder, unspecified; N20.0 Calculus of kidney | CPT/HCPCS: 83036; 96127; 99212 ==

== ENCOUNTER 2024-04-06 09:47 | Outpatient (REF) | payer OTHER, SELFPAY ==
--- NOTE | ~2024-04-06 | XR_ITS ---
CLINICAL HISTORY: M25.551 - Pain in right hip 2 views right hip Comparison: CR/SR - XR HIP RT MIN 2V - 07/08/22 17:06 EDT Findings: There is no fracture or dislocation. Joint spaces appear normal. No lytic or blastic lesion is seen. Impression: Unremarkable right hip radiographs. This document has been electronically signed by: Ritchie Ortiz MD on 04/07/2024 03:43:48
[2024-04-06 10:06] LABS: MANUAL DIFF FLAG NO
--- OUTSIDE RECORDS SUMMARY | 2024-04-06 10:57 | XMS_ITS | Clinical Summary ---
Author Organization [employer] [facility] Address [address] [place] [address] Care Team Providers Care Home Health Attendant Name Role Phone Unavailable Primary Care Provider [...] patient's age to complete this topic Insurance [facility] STANDARD
--- OUTSIDE RECORDS SUMMARY | 2024-04-06 10:57 | XMS_ITS | Patient Health Record ---
Author Organization [facility] Address [address] [place] [address] Care Team Providers Care Mother Repairer Name Role Phone Nel Amos MDh Primary Care Provider Unava Onesimo Dick Unavailable [phone] ALLERGIES Allergen (clinical drug ingredient) Drug/Non Drug Allergy documented on EMR Reaction Allergy Type Onset Date Status aspirin Aspirin Unknown Drug Allergy Active Sulfacet-R Unknown Drug Allergy Active penicillamine Penicillamine Unknown Drug Allergy Active ibuprofen Ibuprofen Unknown Drug Allergy Active IVP dye (uncoded) Unknown Allergy Ac tive morphine Morphine Unknown Drug Allergy Active oxycodone Oxycodone Unknown Drug Allergy Active Iodine Unknown Drug Allergy Active Gadolinium Unknown Drug Allergy Active REASON FOR REFERRAL No Information MEDICATIONS Medication SIG (Take, Route, Frequency, Duration) Notes Start Date End Date Status Fluticasone Furoate 27.5 MCG/SPRAY 1 spray in each nostril Nasally Once a day for 30 day(s) Active Lancets - as directed Active Testosterone Cypionate 200 MG/ML 1 ml Intramuscular Active Metformin & Diet Manage Prod 500 MG as directed Orally Active Cetirizine HCl 10 MG 1 tablet Orally Onc e a day for 30 day(s) Active Cholecalciferol 25 MCG (1000 UT) 1 capsule Orally Once a day for 30 day(s) Active MiraLax (colon prep) 17 GM/SCOOP 1 bottle 238 Gms mixed with Gatorade or Crystal Light Orally begin at 5:00 p.m. the day before the procedure for 1 day 11/22/2020 Active Loratadine 10 MG/10ML 10 ml Orally Once a day for 30 day(s) Active clonazePAM 1 MG 1 tablet Orally Once a day Active Dulcolax (colon prep) 5 MG take at 3:00 p.m and 7:00p.m. Orally two tablets twice a day for one day for 1 day 11/22/2020 Active IMMUNIZATIONS Vaccine Route Administration Date Status Comme nts Influenza Unknown 11/22/2020 Administered SOCIAL HISTORY Tobacco Use: Social History Observation Description Date Details (start date - stop date) Light tobacco s moker NA - NA Sex Assigned At : Social History Observation Description Sex Assigned At Unknown Tobacco Use/Smoking Question Answer Notes Patient is a light tobacco smoker Alcohol Screen Question Answer Notes Did you have a drink containing alcohol in the p ast year? No Points 0 Interpretation Negative PROBLEMS Problem Type ICD Code Onset Dates Problem Status W/U Status Risk SNOMED Code Notes Problem Encounter for screening for malignant neoplasm of colon (Z12.11) Active confirmed 572420369 Problem Abdominal pain, suprapubic (R10.2) Active confirmed 297419559 Problem Rectal pain (K62.89) Active confirmed 79205481 Problem Diverticulosis of sigmoid colon (K57.30) Active confirmed Diverticulosis of sigmoid colon (516448735) Encounters Encounter Location Date Provider Diagnosis [facility] [address] [place] [address] 12/03/2023 Onesimo Nogueira PLAN OF TREATMENT Future Test Test Name Order Date COLONOSCOPY 11/22/2020 Insurance Providers Payer Name Payer Address Payer Phone Subscriber Number Group Number Insured Name Patient Relationship to Insured Coverage Start Date Coverage End Date [facility] [address] [address] [place], [place] [phone] [id number] NELLI CERNA Self - patient is the insured [place] [address] [place] [address] [id number] NELLI CERNA Self - patient is the insured MEDICAL (GENERAL) HISTORY Medical History History ICD Code Colonoscopy 04-11-2010--[place] except for hyperplastic polyps, diverticulosis, and internal and external hemorrhoids Hearing loss Arthirits Anxiety Hyperlipidemia NIDDM Allergies Vitamin D deficiency Denies NH,CVA,Lung disease,renal disease Low Testosterone levels IBS Surgical History Surgery Date(Month/Year) Undescended testicle Cholecystectomy
--- OUTSIDE RECORDS SUMMARY | 2024-04-06 10:57 | XMS_ITS | Encounter Summary ---
Author Organization [employer] [facility] Address [address] 7t [place] [address] Care Team Providers Care Teacher Preschool Name Role Phone Unavailable Primary Care Provider [...]
--- OUTSIDE RECORDS SUMMARY | 2024-04-06 10:57 | XMS_ITS ---
Author Organization [facility] Address [address] [place] [address] Care Team Providers Care Carton Repairer Name Role Phone Dandre COURTNEY, [place] Primary Care Provider Unava ilable Onesimo Nogueira Unavailable [phone] REASON FOR VISIT rectum pain x2 Encounters Encounter Location Date Provider Diagnosis [facility] [address] [place] [address] 12/03/2023 Onesimo Nogueira PLAN OF TREATMENT No Information
[2024-04-06 11:29] LABS: Appearance Urine Clear; Color Urine Yellow; Glucose Urine UA Negative (Negative); Leukocyte Esterase Urine Negative (Negative); Nitrite Urine Negative (Negative); PH 5.5 (5.0-9.0); Specific Gravity - Urine 1.015 (1.005-1.025); Urine Blood Negative (Negative); Urine Ketones Negative (Negative); Urine Protein Negative (Neg-Trace)
[2024-04-06 11:30] LABS: Basophils Absolute Auto 0.1 X10*3/uL (0.0-0.2); Basophils Percent Auto 0.6 % (0-2); Eosinophils Absolute Auto 0.3 X10*3/uL (0.0-0.4); Eosinophils Percent Auto 3.4 % (0-4); Hematocrit 46.1 % (42.0-52.0); Hemoglobin 15.3 g/dl (14.0-18.0); Imm Gran Abs Auto 0.06 X10*3/uL (0.00-0.03); Imm Gran Pct Auto 0.8 % (0.0-0.4); Lymphocytes Absolute Auto 2.7 X10*3/uL (1.2-4.9); Lymphocytes Percent Auto 34.1 % (20-40); Mean Corpuscular HGB Conc 33.2 g/dl (31.0-36.0); Mean Corpuscular Hemoglobin 28.7 pg (27.0-33.0); Mean Corpuscular Volume 86.3 fL (80.0-98.0); Mean Platelet Volume 10.9 fL (9.4-12.4); Monocytes Absolute Auto 0.7 X10*3/uL (0.1-1.2); Monocytes Percent Auto 8.4 % (2-11); Neutrophils Absolute Auto 4.1 x10*3/uL (2.0-8.3); Neutrophils Percent Auto 52.7 % (45-73); Platelet Count 298 X10*3/uL (160-400); Red Blood Count 5.34 X10*6/uL (4.60-5.80); Red Cell Distribution Width 15.6 % (11.0-16.0); White Blood Count 7.9 X10*3/uL (4.8-10.8)
[2024-04-06 11:34] LABS: Estimated Average Glucose 126 mg/dL; Hemoglobin A1C 164.0891 umol/L
[2024-04-06 13:00] LABS: Alanine Aminotransferase 39 U/L (0-40); Albumin Level 4.1 g/dL (3.5-5.0); Alkaline Phosphatase 42 U/L (39-117); Anion Gap 10 (12-20); Aspartate Amino Transferase 28 U/L (5-37); Bilirubin Total 0.5 mg/dL (0.0-1.0); Blood Urea Nitrogen 24 mg/dL (9-16); Calcium 9.8 mg/dL (8.4-10.2); Carbon Dioxide 27 mmol/L (22-29); Chloride 107 mmol/L (96-108); Cholesterol 170 mg/dL (<200); Estimated Glomerular Filt Rate > 60; Glucose Fasting 111 mg/dL (60-99); HDL Cholesterol 35 mg/dL (>40); LDL Cholesterol Calculated 103 mg/dL (<100); Magnesium 2.1 mg/dL (1.6-2.6); Potassium 4.3 mmol/L (3.3-5.1); Sodium 140 mmol/L (135-145); TSH reflex Free T4 1.55 uIU/mL (0.32-4.0); Total Protein 7.9 g/dL (6.5-8.0); Triglycerides 161 mg/dL (<150); Vitamin D 25-OH Total 52.9 ng/mL (>30)
[2024-04-06 13:15] LABS: Creatinine Urine 117.48 mg/dL; Microalbumin Urine < 5.0 mg/L
[2024-04-12 14:53] LABS: Testosterone, Free 20.5 pg/mL (35.0-155.0); Testosterone, Total 115 ng/dL (250-1100)
== END 2024-04-06 09:48 | disposition home or self-care (01) ==
LOC: HO.LAB 09:47
PROVIDERS: PCP Internal Medicine; Visit Provider Internal Medicine
DX: M25.551 Pain in right hip (principal); E78.00 Pure hypercholesterolemia, unspecified; R79.89 Other specified abnormal findings of blood chemistry; E11.9 Type 2 diabetes mellitus without complications; D64.9 Anemia, unspecified; R30.0 Dysuria; E83.42 Hypomagnesemia
CPT/HCPCS: 36415; 73502; 80053; 80061; 81003; 82043; 82306; 82570; 83036; 83735; 84402; 84403; 84443; 85025

== ENCOUNTER → 2024-04-06 10:08 | Outpatient (BNV) | payer OTHER, SELFPAY | PROVIDERS: PCP Internal Medicine; Visit Provider Radiology Diagnostic Radiology | DX: M25.551 Pain in right hip (principal) | CPT/HCPCS: 73502 ==

== ENCOUNTER 2024-04-08 15:49 | Outpatient (AMB) | payer OTHER, SELFPAY ==
--- OUTSIDE RECORDS SUMMARY | 2024-04-08 15:52 | XMS_ITS | Encounter Summary ---
Author Organization [employer] [facility] Address [address] 7t [place] [address] Care Team Providers Care Cancer Researcher Name Role Phone Unavailable Primary Care Provider [...]
--- OUTSIDE RECORDS SUMMARY | 2024-04-08 15:52 | XMS_ITS | Patient Health Record ---
Author Organization [facility] Address [address] [place] [address] Care Team Providers Care Water Supply Engineer Name Role Phone Nel Amos MDh Primary Care Provider Unava Onesimo Dick Unavailable [phone] ALLERGIES Allergen (clinical drug ingredient) Drug/Non Drug [...] malignant neoplasm of colon (Z12.11) Active confirmed 272489804 Problem Abdominal pain, suprapubic (R10.2) Active confirmed 730602229 Problem Rectal pain (K62.89) Active confirmed 93712981 Problem Diverticulosis of sigmoid colon (K57.30) Active confirmed Diverticulosis of sigmoid colon (141394841) Encounters Encounter Location Date Provider Diagnosis [facility] [address] [place] [address] 12/03/2023 Onesimo Nogueira PLAN OF TREATMENT Future Test Test Name Order Date COLONOSCOPY 11/22/2020 Insurance Providers Payer Name Payer Address Payer Phone Subscriber Number Group Number Insured Name Patient Relationship to Insured Coverage Start Date Coverage End Date [facility] [address] [address] [place], [place] [phone] [id number] NELLI CERNA Self - patient is the insured [place] [address] [place] [address] [id number] NELLI CERNA Self - patient is the insured MEDICAL (GENERAL) HISTORY Medical History History ICD Code Colonoscopy 04-11-2010--[place] except for hyperplastic polyps, diverticulosis, and internal and external hemorrhoids Hearing loss Arthirits Anxiety Hyperlipidemia NIDDM Allergies Vitamin D deficiency Denies [place],CVA,Lung disease,renal disease Low Testosterone levels IBS Surgical History Surgery Date(Month/Year) Undescended testicle Cholecystectomy
--- OUTSIDE RECORDS SUMMARY | 2024-04-08 15:52 | XMS_ITS | Clinical Summary ---
Author Organization [facility] Address [address] 7t [place] [address] Care Team Providers Care Fuse Cutter Name Role Phone Unavailable Primary Care Provider [...] patient's age to complete this topic Insurance [facility] ST[facility] Member Subscriber Plan / Payer (Ef fective 2023-Present) Name:Gopi Blandon Relation to Subscriber:Self Name:Gopi Blandon Payer ID:Not on file Group ID:Not on file Type:Medicaid Address: [address] [address]
--- OUTSIDE RECORDS SUMMARY | 2024-04-08 15:52 | XMS_ITS ---
Author Organization [facility] Address [address] [place] [address] Care Team Providers Care Speech Assistant Name Role Phone Dandre COURTNEY, M[place] Primary Care Provider Unava ilable Onesimo Nogueira Unavailable [phone] REASON FOR VISIT rectum pain x2 Encounters Encounter Location Date Provider Diagnosis [facility] [address] [place] [address] 12/03/2023 Onesimo Nogueira PLAN OF TREATMENT No Information
--- NOTE | 2024-04-08 16:08 | AM.OFFVISNUR ---
Intake Visit Reasons: Testosterone Shot Allergies Iodinated Contrast Media [IV Dye, Iodine Containing] Allergy (Severe, Verified 03/30/24 11:24) ANAPHYLAXIS aspirin [Aspirin] Allergy (Mild, Verified 03/30/24 11:24) ITCHING ibuprofen [Ibuprofen] Allergy (Mild, Verified 03/30/24 11:24) NAUSEA Penicillins Allergy (Mild, Verified 03/30/24 11:24) ITCHING/SWELLING Gadolinium-Containing Contrast Medi [GADOLINIUM-CONTAINING CONTRAST] Allergy (Unknown, Verified 03/30/24 11:24) UNKNOWN iodine [IODINE] Allergy (Unknown, Verified 03/30/24 11:24) UNKNOWN morphine [MORPHINE] Allergy (Unknown, Verified 03/30/24 11:24) TACHYCARDIA oxycodone [From PERCOCET] Allergy (Unknown, Verified 03/30/24 11:24) N/V,H/A Sulfa (Sulfonamide Antibiotics) [SULFA (SULFONAMIDE ANTIBIOTICS)] Allergy (Unknown, Verified 03/30/24 11:24) UNKNOWN Office Meds testosterone cypionate 200 mg/mL intramuscular kit Performing Provider: Madi Amos MD [facility] Administered by: Hortencia Og LPN on 04/08/24 16:08 Dose Route Admin Location Dispensed Lot Number Expiration Date [facility] Project Scientist 200 mg IM left buttock 1 ea [id number] 04/23/24 7182-0671-57 [facility] Assessment & Plan Assessment & Plan Orders: Orders AMB Testosterone Injection Patient Supplied N/C Today R79.89 - Other specified abnormal findings of blood chemistry Medications: New testosterone cypionate 200 mg IM ONCE 1 ea 0RF R79.89 - Other specified abnormal findings of blood chemistry Coding
== END 2024-04-08 16:04 | disposition home or self-care (01) ==
LOC: HO.HMCH 15:49
PROVIDERS: PCP Internal Medicine; Visit Provider Internal Medicine
DX: R79.89 Other specified abnormal findings of blood chemistry (principal)

== ENCOUNTER → 2024-04-08 15:49 | Outpatient (BNVA) | payer OTHER, SELFPAY | PROVIDERS: PCP Internal Medicine; Visit Provider Internal Medicine | DX: R79.89 Other specified abnormal findings of blood chemistry (principal) | CPT/HCPCS: 96372 ==

== ENCOUNTER 2024-05-06 15:42 | Outpatient (AMB) | payer OTHER, SELFPAY ==
--- NOTE | 2024-05-06 16:04 | AM.OFFVISNUR ---
Intake Visit Reasons: Testosterone Allergies Iodinated Contrast Media [IV Dye, Iodine Containing] Allergy (Severe, Verified 03/30/24 11:24) ANAPHYLAXIS aspirin [Aspirin] Allergy (Mild, Verified 03/30/24 11:24) ITCHING ibuprofen [Ibuprofen] Allergy (Mild, Verified 03/30/24 11:24) NAUSEA Penicillins Allergy (Mild, Verified 03/30/24 11:24) ITCHING/SWELLING Gadolinium-Containing Contrast Medi [GADOLINIUM-CONTAINING CONTRAST] Allergy (Unknown, Verified 03/30/24 11:24) UNKNOWN iodine [IODINE] Allergy (Unknown, Verified 03/30/24 11:24) UNKNOWN morphine [MORPHINE] Allergy (Unknown, Verified 03/30/24 11:24) TACHYCARDIA oxycodone [From PERCOCET] Allergy (Unknown, Verified 03/30/24 11:24) N/V,H/A Sulfa (Sulfonamide Antibiotics) [SULFA (SULFONAMIDE ANTIBIOTICS)] Allergy (Unknown, Verified 03/30/24 11:24) UNKNOWN Office Meds testosterone cypionate 200 mg/mL intramuscular kit Performing Provider: Madi Amos MD Performing [facility] [place] [facility] Administered by: Hortencia Og LPN on 05/06/24 16:04 Dose Route Admin Location Dispensed Lot Number Expiration Date [facility] Scout Sniper 200 mg IM left buttock 1 ea [id number] 12/24/26 1179-5932-72 [facility] Assessment & Plan Assessment & Plan Orders: Orders AMB Testosterone Injection Patient Supplied N/C Today R79.89 - Other specified abnormal findings of blood chemistry Medications: New testosterone cypionate 200 mg IM ONCE 1 ea 0 R79.89 - Other specified abnormal findings of blood chemistry Coding
--- OUTSIDE RECORDS SUMMARY | 2024-05-06 19:10 | XMS_ITS | Patient Health Record ---
Author Organization [facility] Address [address] [place] [address] Care Team Providers Care Back Grinder Name Role Phone Rainer Amos MDneth Primary Care Provider UnaOnesimo Kowalski Unavailable [phone] Allergies Allergen (clinical drug ingredient) Drug/Non Drug Allergy documented on EMR Reaction Allergy Type Onset Date Status morphine Morphine Unknown Drug Allergy Active oxycodone Oxycodone Unknown Drug Allergy Active Iodine Unknown Drug Allergy Active Gadolinium Unknown Drug Allergy Active aspirin Aspirin Unknown Drug Allergy Active Sulfacet-R Unknown Drug Allergy Active penicillamine Penicillamine Unknown Drug Allergy Active ibuprofen Ibuprofen Unknown Drug Allergy Active IVP dye (uncoded) Unknown Allergy Ac tive Reason For Referral No Information Medications Medication SIG (Take, Route, Frequency, Duration) Notes [...] one day for 1 day 11/22/2020 Active Immunizations Vaccine Route Administration Date Status Comme nts Influenza Unknown 11/22/2020 Administered Social History Tobacco Use: Social History Observation Description Date Details (start date - stop date) Light tobacco s moker NA - NA Tobacco Use/Smoking Question Answer Notes Patient is a light tobacco smoker Alcohol Screen Question Answer Notes Did you have a drink containing alcohol in the p ast year? No Points 0 Interpretation Negative Section Notes: Occ. cigar; no alcohol Problems Problem Type SNOMED Code ICD Code Onset Dates Problem Status W/U Status Risk Notes Problem 955526895 Encounter for screening for malignant neoplasm of colon (Z12.11) Active confirmed Problem 77489532 Rectal pain (K62.89) Active confirmed Problem Diverticulosis of sigmoid colon (254885158) Diverticulosis of sigmoid colon (K57.30) Active confirmed Problem 401245280 Abdominal pain, suprapubic (R10.2) Active confirmed Encounters Encounter Location Date Provider Diagnosis [facility] [address] [place] [address] 12/03/2023 Onesimo Nogueira Plan Of Treatment Future Test Test Name Order Date COLONOSCOPY 11/22/2020 Insurance Providers Payer Name Payer Address Payer Phone Subscriber Number Group Number Insured Name Patient Relationship to Insured Coverage Start Date Coverage End Date [facility] [address] [address] [place], [place] [id number] NELLI CERNA Self - patient is the insured [place] [address] [place] [address] [id number] NELLI CERNA Self - patient is the insured Medical (General) History Medical History History ICD Code Colonoscopy 04-11-2010--[place] except for hyperplastic polyps, diverticulosis, and internal and external hemorrhoids Hearing loss Arthirits Anxiety Hyperlipidemia NIDDM Allergies Vitamin D deficiency Denies [place],CVA,Lung disease,renal disease Low Testosterone levels IBS Surgical History Surgery Date(Month/Year) Undescended testicle Cholecystectomy
--- OUTSIDE RECORDS SUMMARY | 2024-05-06 19:10 | XMS_ITS | Encounter Summary ---
Author Organization [facility] Address [address] 7t [place] [address] Care Team Providers Care Sales Administrator Name Role Phone Unavailable Primary Care Provider [...]
--- OUTSIDE RECORDS SUMMARY | 2024-05-06 19:10 | XMS_ITS ---
Author Organization [facility] Address [address] [place] [address] Care Team Providers Care Frog Or Oyster Farmworker Name Role Phone Dandre COURTNEY, [place] Primary Care Provider Unava ilable Onesimo Nogueira [phone] REASON FOR VISIT rectum pain x2 Encounters Encounter Location Date Provider Diagnosis [facility] [address] [place] [address] 12/03/2023 Onesimo Nogueira Plan Of Treatment No Information Progress Notes * CERNA BLAIREOB:[birth year] (63 yo M)Acc No.[id number]:12/03/2023 Patient:?RENALDO CERNAEDO :1960???Age:62 Y???Sex:Male Address:[address], [place] [address] * true * Date:? Generated for Sheryl garcia/Kedar/eTransmitting on:?05/06/2024 07:10 PM EDT
--- OUTSIDE RECORDS SUMMARY | 2024-05-06 19:10 | XMS_ITS | Clinical Summary ---
Author Organization [employer] [facility] Address [address] 7t [place] [address] Care Team Providers Care Physician General Practice Name Role Phone Unavailable Primary Care Provider [...] patient's age to complete this topic Insurance [facility] STANDARD
== END 2024-05-06 16:06 | disposition home or self-care (01) ==
LOC: HO.HMCH 15:43
PROVIDERS: PCP Internal Medicine; Visit Provider Internal Medicine
DX: R79.89 Other specified abnormal findings of blood chemistry (principal)

== ENCOUNTER → 2024-05-06 15:42 | Outpatient (BNVA) | payer OTHER, SELFPAY | PROVIDERS: PCP Internal Medicine; Visit Provider Internal Medicine | DX: R79.89 Other specified abnormal findings of blood chemistry (principal) | CPT/HCPCS: 96372 ==

== ENCOUNTER 2024-05-18 09:03 | Outpatient (REF) | payer OTHER, SELFPAY ==
--- NOTE | ~2024-05-18 | XR_ITS ---
EXAMINATION: XR PELVIS 1-2 VIEWS HISTORY: M25.559 - Pain in unspecified hip COMPARISON: Comparison is made with the prior examination of the right hip dated 04/06/2024. FINDINGS: A single AP view of the pelvis is submitted. Osseous mineralization is normal. There is no fracture or dislocation. The joint space is maintained. The soft tissues are unremarkable. XR/XR pelvis 1-2V IMPRESSION: Unremarkable examination of the pelvis. Electronically signed by: Onesimo Shahid MD 05/19/2024 03:18 PM EDT
== END 2024-05-18 09:04 | disposition home or self-care (01) ==
LOC: HO.HOSX 09:03
PROVIDERS: Visit Provider Physician Assistant
DX: M25.552 Pain in left hip (principal); M25.551 Pain in right hip; M54.16 Radiculopathy, lumbar region
CPT/HCPCS: 72170; 99202

== ENCOUNTER 2024-05-18 14:50 | Outpatient (AMB) | payer OTHER, SELFPAY ==
--- NOTE | 2024-05-18 14:59 | MHC.OFFVIS ---
Vital Signs 05/18/24 15:03 Height 5 ft 6 in Weight 159 lb BMI 25.7 Intake Visit Reasons: CHLORINATOR-RT hip pain Intake Note: Gopi is a 63 year old male who presents today as a new patient with complaints of right hip pain. Patient reports that he has had increased right hip pain since February of this year. He explains that his pain is felt all the time, he does not feel relief with rest. Pain is located along the lateral aspect of the right hip. Denies any injury. He also experiences leg/foot cramping that is worse at night - he was given Magnesium Oxide for this from his PCP. He states that his pain is on the glutes. He state that his pain is worse when he is sitting and laying down. Patient has tried Tylenol with mild relief. [facility] Services: [facility] Present (Jm ([id number])) Allergies Iodinated Contrast Media [IV Dye, Iodine Containing] Allergy (Severe, Verified 03/30/24 11:24) ANAPHYLAXIS aspirin [Aspirin] Allergy (Mild, Verified 03/30/24 11:24) ITCHING ibuprofen [Ibuprofen] Allergy (Mild, Verified 03/30/24 11:24) NAUSEA Penicillins Allergy (Mild, Verified 03/30/24 11:24) ITCHING/SWELLING Gadolinium-Containing Contrast Medi [GADOLINIUM-CONTAINING CONTRAST] Allergy (Unknown, Verified 03/30/24 11:24) UNKNOWN iodine [IODINE] Allergy (Unknown, Verified 03/30/24 11:24) UNKNOWN morphine [MORPHINE] Allergy (Unknown, Verified 03/30/24 11:24) TACHYCARDIA oxycodone [From PERCOCET] Allergy (Unknown, Verified 03/30/24 11:24) N/V,H/A Sulfa (Sulfonamide Antibiotics) [SULFA (SULFONAMIDE ANTIBIOTICS)] Allergy (Unknown, Verified 03/30/24 11:24) UNKNOWN HPI HPI CHLORINATOR-RT hip pain: Details: Mr. Jamia Isaacs is a 63-year-old male who presents to the office today for right hip pain. He reports that the majority of his pain is located in the buttock and travels down the posterior aspect of the right thigh. He reports that he has had this pain since February of this year and denies any injury or trauma. He reports that he has a bulging disc in the L-spine but is not actively being followed by a provider at this time. He reports that the pain is worse with sitting and lying down. He has tried Tylenol with mild relief. [facility] Medical History (Updated 05/18/24 @ 15:58 by Janel Pierre PA-C) Mixed hyperlipidemia Choking due to phlegm LEIA (obstructive sleep apnea) Snoring Retrognathia Somnolence, daytime ILD (interstitial lung disease) Abnormal chest xray Chest pain Hx of flexible sigmoidoscopy IBS (irritable bowel syndrome) Arthritis Cigar smoker Anxiety Vitamin D deficiency Renal calculi Allergic rhinitis Diabetes mellitus Right hip pain Right shoulder pain Hypotestosteronism Swelling of left hand Left hand pain Surgical History Hx of cystoscopy Hx laparoscopic cholecystectomy History of testicular surgery History of colonoscopy History of lithotripsy Family History Father Prostate cancer Mother Hypertension Hypercholesterolemia Brother Hypertension Diabetes Other Hypotestosteronism Social History Housing: Apartment Alcohol intake: never Patient Tobacco Use Status: Former Tobacco user Tobacco use type: Cigar Cigarettes Per Day: 3 Years Smoked: pt states quit 01/2022 e-Cigarette/Vaping Use: Never Used Second Hand Smoke Exposure: Yes Advance Directives Date on File: 11/07/14 service: No Current occupational status: disabled Cognitive needs: No Hearing needs: No Vision needs: Yes Review of Systems Const All systems reviewed & are unremarkable except as noted in HPI and below Physical Exam Vital Signs: BMI result Body Mass Index 25.7 Const General: cooperative, healthy appearing and no acute distress Resp Effort & Inspection: normal respiratory effort and able to speak in complete sentences Cardio Rate: regular rate Peripheral pulses: Peripheral pulses 2+ throughout Skin Lesions: no lesions Rashes: no rashes Extrem Other: Right hip: Normal to inspection. No ecchymosis, erythema, or edema. Full hip ROM in all planes with no groin pain. No tenderness to palpation over the greater trochanteric bursa. 4/5 strength with resisted hip flexion, knee extension, abduction, and abduction. Able to perform straight leg raise. NVI. Assessment & Plan Assessment & Plan (1) Lumbar radiculopathy: Code(s): M54.16 - Radiculopathy, lumbar region Category: Medical Plan Mr. Jamia Isaacs is a 63-year-old male who presents to the office today for right hip pain. He reports that the majority of his pain is located in the buttock and travels down the posterior aspect of the right thigh. He reports that he has had this pain since February of this year and denies any injury or trauma. He reports that he has a bulging disc in the L-spine but is not actively being followed by a provider at this time. He reports that the pain is worse with sitting and lying down. He has tried Tylenol with mild relief. On the office today, the patient does not complain of any groin pain the x-rays are negative for any osteoarthritis or abnormalities. I would like to have him be evaluated by Dr. Ivey for further evaluation and treatment of his L-spine. Patient will follow up with Orthopedics p.r.n., sooner if needed. X-rays of the pelvis which were obtained while in the office today and were reviewed by me, Janel Pierre PA-C, revealed no acute fracture or dislocation. Orders: Orders XR pelvis 1-2V Today M25.559 - Pain in unspecified hip Coding Level of Care Code New Pt Level 3 (75855) Diagnoses Lumbar radiculopathy M54.16
[2024-05-18 15:03] VITALS: BMI 25.7
== END 2024-05-18 15:26 | disposition home or self-care (01) ==
LOC: HO.HOS 14:50
PROVIDERS: PCP Internal Medicine; Visit Provider Physician Assistant
DX: M54.16 Radiculopathy, lumbar region (principal); M54.31 Sciatica, right side
CPT/HCPCS: 99203

== ENCOUNTER → 2024-05-18 14:52 | Outpatient (BNV) | payer OTHER, SELFPAY | PROVIDERS: Visit Provider Radiology Diagnostic Radiology | DX: M25.551 Pain in right hip (principal) | CPT/HCPCS: 72170 ==

== ENCOUNTER 2024-06-04 14:57 | Outpatient (AMB) | payer OTHER, SELFPAY ==
--- OUTSIDE RECORDS SUMMARY | 2024-06-04 15:03 | XMS_ITS | Clinical Summary ---
Author Organization [employer] [facility] Address [address] 7t [place] [address] Care Team Providers Care Grouter Helper Name Role Phone Unavailable Primary Care Provider [...] patient's age to complete this topic Insurance [facility] STANDARD
--- OUTSIDE RECORDS SUMMARY | 2024-06-04 15:03 | XMS_ITS | Patient Health Record ---
Author Organization [facility] Address [address] [place] [address] Care Team Providers Care Supervisor Drying And Winding Name Role Phone Nel Amos MDh Primary Care Provider Unava Onesimo Dick Unavailable [phone] Allergies Allergen (clinical drug ingredient) Drug/Non Drug [...] Allergy Active Gadolinium Unknown Drug Allergy Active Reason For Referral No Information Medications Medication [...] Problem Status W/U Status Risk Notes Problem 631338206 Encounter for screening for malignant neoplasm of colon (Z12.11) Active confirmed Problem 07437637 Rectal pain (K62.89) Active confirmed Problem Diverticulosis of sigmoid colon (579805987) Diverticulosis of sigmoid colon (K57.30) Active confirmed Problem 296818483 Abdominal pain, suprapubic (R10.2) Active confirmed Encounters Encounter Location Date Provider Diagnosis [facility] [address] [place] [address] 12/03/2023 Onesimo Nogueira Plan Of Treatment Future Test Test Name Order Date COLONOSCOPY 11/22/2020 Insurance Providers Payer Name Payer Address Payer Phone Subscriber Number Group Number Insured Name Patient Relationship to Insured Coverage Start Date Coverage End Date [facility] [address] [address] [place], [place] [id number] NELLI CERNA Self - patient is the insured [place] [address] [place] [address] [id number] NELLI CERNA Self - patient is the insured Medical (General) History Medical History History ICD Code Colonoscopy 04-11-2010--[place] except for hyperplastic polyps, diverticulosis, and internal and external hemorrhoids Hearing loss Arthirits Anxiety Hyperlipidemia NIDDM Allergies Vitamin D deficiency Denies [place],CVA,Lung disease,renal disease Low Testosterone levels IBS Surgical History Surgery Date(Month/Year) Undescended testicle Cholecystectomy
--- OUTSIDE RECORDS SUMMARY | 2024-06-04 15:03 | XMS_ITS | Encounter Summary ---
Author Organization [employer] [facility] Address [address] [facility] 7t [place] [address] Care Team Providers Care Basket Filler Name Role Phone Unavailable Primary Care Provider [...]
--- OUTSIDE RECORDS SUMMARY | 2024-06-04 15:03 | XMS_ITS ---
Author Organization [facility] Address [address] [place] [address] Care Team Providers Care Bin Cleaner Name Role Phone Dandre COURTNEY, [place] Primary Care Provider Unava ilable Onesimo Nogueira [phone] REASON FOR VISIT rectum pain x2 Encounters Encounter Location Date Provider Diagnosis [facility] [address] [place] [address] 12/03/2023 Onesimo Nogueira Plan Of Treatment No Information Progress Notes * CERNA BLAIREOB:[birth year] (63 yo M)Acc No.[id number]:12/03/2023 Patient:?RENALDO CERNAEDO :1960???Age:62 Y???Sex:Male Address:[address], [place] [address] * true * Date:? Generated for Sheyrl garcia/Kedar/eTransmitting on:?06/04/2024 03:03 PM EDT
--- NOTE | 2024-06-04 15:18 | AM.OFFVISNUR ---
Intake Visit Reasons: Testosterone Allergies Iodinated Contrast Media [IV Dye, Iodine Containing] Allergy (Severe, Verified 03/30/24 11:24) ANAPHYLAXIS aspirin [Aspirin] Allergy (Mild, Verified 03/30/24 11:24) ITCHING ibuprofen [Ibuprofen] Allergy (Mild, Verified 03/30/24 11:24) NAUSEA Penicillins Allergy (Mild, Verified 03/30/24 11:24) ITCHING/SWELLING Gadolinium-Containing Contrast Medi [GADOLINIUM-CONTAINING CONTRAST] Allergy (Unknown, Verified 03/30/24 11:24) UNKNOWN iodine [IODINE] Allergy (Unknown, Verified 03/30/24 11:24) UNKNOWN morphine [MORPHINE] Allergy (Unknown, Verified 03/30/24 11:24) TACHYCARDIA oxycodone [From PERCOCET] Allergy (Unknown, Verified 03/30/24 11:24) N/V,H/A Sulfa (Sulfonamide Antibiotics) [SULFA (SULFONAMIDE ANTIBIOTICS)] Allergy (Unknown, Verified 03/30/24 11:24) UNKNOWN Office Meds testosterone cypionate 200 mg/mL intramuscular kit Performing Provider: Madi Amos MD [place] [facility] [facility] Administered by: Hortencia Og LPN on 06/04/24 15:18 Dose Route Admin Location Dispensed Lot Number Expiration Date [facility] Sas Developer 200 mg IM right buttock 1 ea [id number] 11/23/26 5875-7510-32 [facility] Assessment & Plan Assessment & Plan Orders: Orders AMB Testosterone Injection Patient Supplied N/C Today E34.9 - Endocrine disorder, unspecified Medications: New testosterone cypionate 200 mg IM ONCE 1 ea 0 E34.9 - Endocrine disorder, unspecified Coding
== END 2024-06-04 15:17 | disposition home or self-care (01) ==
LOC: HO.HMCH 14:58
PROVIDERS: PCP Internal Medicine; Visit Provider Internal Medicine
DX: E34.9 Endocrine disorder, unspecified (principal)

== ENCOUNTER → 2024-06-04 14:57 | Outpatient (BNVA) | payer OTHER, SELFPAY | PROVIDERS: PCP Internal Medicine; Visit Provider Internal Medicine | DX: E34.9 Endocrine disorder, unspecified (principal) | CPT/HCPCS: 96372 ==

== ENCOUNTER 2024-07-21 16:19 | Outpatient (AMB) | payer OTHER, SELFPAY ==
--- NOTE | 2024-07-21 16:49 | AM.OFFVISNUR ---
Intake Visit Reasons: testosterone shot Allergies Iodinated Contrast Media [IV Dye, Iodine Containing] Allergy (Severe, Verified 03/30/24 11:24) ANAPHYLAXIS aspirin [Aspirin] Allergy (Mild, Verified 03/30/24 11:24) ITCHING ibuprofen [Ibuprofen] Allergy (Mild, Verified 03/30/24 11:24) NAUSEA Penicillins Allergy (Mild, Verified 03/30/24 11:24) ITCHING/SWELLING Gadolinium-Containing Contrast Medi [GADOLINIUM-CONTAINING CONTRAST] Allergy (Unknown, Verified 03/30/24 11:24) UNKNOWN iodine [IODINE] Allergy (Unknown, Verified 03/30/24 11:24) UNKNOWN morphine [MORPHINE] Allergy (Unknown, Verified 03/30/24 11:24) TACHYCARDIA oxycodone [From PERCOCET] Allergy (Unknown, Verified 03/30/24 11:24) N/V,H/A Sulfa (Sulfonamide Antibiotics) [SULFA (SULFONAMIDE ANTIBIOTICS)] Allergy (Unknown, Verified 03/30/24 11:24) UNKNOWN Office Meds testosterone cypionate 200 mg/mL intramuscular kit Performing Provider: Madi Amos MD Performing [facility] Administered by: Hortencia Og LPN on 07/21/24 16:49 Dose Route Admin Location Dispensed Lot Number Expiration Date [facility] Hospital Admissions Officer 200 mg IM right buttock 1 ea [id number] 01/23/27 1721-8405-60 [facility] Assessment & Plan Assessment & Plan Orders: Orders AMB Testosterone Injection Patient Supplied N/C Today E34.9 - Endocrine disorder, unspecified Medications: New testosterone cypionate 200 mg IM ONCE 1 ea 0 E34.9 - Endocrine disorder, unspecified Coding
== END 2024-07-21 16:38 | disposition home or self-care (01) ==
LOC: HO.HMCH 16:20
PROVIDERS: PCP Internal Medicine; Visit Provider Internal Medicine
DX: E34.9 Endocrine disorder, unspecified (principal)

== ENCOUNTER → 2024-07-21 16:19 | Outpatient (BNVA) | payer OTHER, SELFPAY | PROVIDERS: PCP Internal Medicine; Visit Provider Internal Medicine | DX: E34.9 Endocrine disorder, unspecified (principal) | CPT/HCPCS: 96372 ==

== ENCOUNTER 2024-08-18 09:37 | Outpatient (REF) | payer OTHER, SELFPAY ==
[2024-08-18 09:55] LABS: MANUAL DIFF FLAG NO
[2024-08-18 10:40] LABS: Basophils Percent Auto 0.3 % (0-2); Eosinophils Absolute Auto 0.4 X10*3/uL (0.0-0.4); Eosinophils Percent Auto 4.1 % (0-4); Hematocrit 47.6 % (42.0-52.0); Hemoglobin 16.4 g/dl (14.0-18.0); Imm Gran Abs Auto 0.04 X10*3/uL (0.00-0.03); Imm Gran Pct Auto 0.4 % (0.0-0.4); Lymphocytes Absolute Auto 2.9 X10*3/uL (1.2-4.9); Lymphocytes Percent Auto 32.3 % (20-40); Mean Corpuscular HGB Conc 34.5 g/dl (31.0-36.0); Mean Corpuscular Hemoglobin 28.1 pg (27.0-33.0); Mean Corpuscular Volume 81.6 fL (80.0-98.0); Mean Platelet Volume 10.5 fL (9.4-12.4); Monocytes Absolute Auto 0.7 X10*3/uL (0.1-1.2); Monocytes Percent Auto 8.1 % (2-11); Neutrophils Absolute Auto 4.9 x10*3/uL (2.0-8.3); Neutrophils Percent Auto 54.8 % (45-73); Platelet Count 243 X10*3/uL (160-400); Red Blood Count 5.83 X10*6/uL (4.60-5.80); Red Cell Distribution Width 14.4 % (11.0-16.0); White Blood Count 8.9 X10*3/uL (4.8-10.8)
--- OUTSIDE RECORDS SUMMARY | 2024-08-18 10:47 | XMS_ITS | Encounter Summary ---
Author Organization [employer] Address [address] [place] [address] Care Team Providers Care Hot Air Furnace Installer And Repairer Name Role Phone Unavailable Primary Care Provider Unavailabl e Encounter Details Date Type Department Care Team (Latest Contact Info) Description 10/19/2018 Abstract C CONVERSIONS Dental, Provider, DDS Social History Tobacco [...]
[2024-08-18 10:52] LABS: Appearance Urine Clear; Color Urine Yellow; Glucose Urine UA Negative (Negative); Leukocyte Esterase Urine Negative (Negative); Nitrite Urine Negative (Negative); PH 5.5 (5.0-9.0); Specific Gravity - Urine 1.025 (1.005-1.025); Urine Blood Negative (Negative); Urine Ketones Negative (Negative); Urine Protein Negative (Neg-Trace)
[2024-08-18 11:02] LABS: Estimated Average Glucose 137 mg/dL; Hemoglobin A1c % 6.4 % (<6.0); Total Hemoglobin (HGBA1C) 4287.5473 umol/L
[2024-08-18 11:28] LABS: Alanine Aminotransferase 38 U/L (0-40); Albumin Level 4.2 g/dL (3.5-5.0); Alkaline Phosphatase 38 U/L (39-117); Anion Gap 13 (12-20); Aspartate Amino Transferase 45 U/L (5-37); Bilirubin Total 0.5 mg/dL (0.0-1.0); Blood Urea Nitrogen 17 mg/dL (9-16); Calcium 9.4 mg/dL (8.4-10.2); Carbon Dioxide 24 mmol/L (22-29); Chloride 106 mmol/L (96-108); Cholesterol 170 mg/dL (<200); Estimated Glomerular Filt Rate > 60; Glucose Fasting 108 mg/dL (60-99); HDL Cholesterol 30 mg/dL (>40); LDL Cholesterol Calculated 105 mg/dL (<100); Sodium 139 mmol/L (135-145); TSH reflex Free T4 2.54 uIU/mL (0.32-4.0); Total Protein 7.6 g/dL (6.5-8.0); Triglycerides 175 mg/dL (<150); Vitamin D 25-OH Total 59.6 ng/mL (>30)
[2024-08-18 11:57] LABS: Creatinine Urine 150.73 mg/dL; Microalbumin Urine < 5.0 mg/L
== END 2024-08-18 09:38 | disposition home or self-care (01) ==
LOC: HO.LAB 09:37
PROVIDERS: PCP Internal Medicine; Visit Provider Internal Medicine
DX: E78.00 Pure hypercholesterolemia, unspecified (principal); E11.9 Type 2 diabetes mellitus without complications; R30.0 Dysuria; D64.9 Anemia, unspecified; E55.9 Vitamin D deficiency, unspecified
CPT/HCPCS: 36415; 80053; 80061; 81003; 82043; 82306; 82570; 83036; 84443; 85025

== ENCOUNTER 2024-08-20 15:49 | Outpatient (AMB) | payer OTHER, SELFPAY ==
--- OUTSIDE RECORDS SUMMARY | 2024-08-20 15:52 | XMS_ITS | Patient Health Record ---
Author Organization [facility] Address [address] [place] [address] Care Team Providers Care Pipelines Supervisor Name Role Phone Nel Amos MDh Primary Care Provider Unava Onesimo Dick Unavailable [phone] Allergies Allergen (clinical drug ingredient) Drug/Non Drug [...] Problem Status W/U Status Risk Notes Problem [id number] Encounter for screening for malignant neoplasm of colon (Z12.11) Active confirmed Problem [id number] Rectal pain (K62.89) Active confirmed Problem Diverticulosis of sigmoid colon (409742678) Diverticulosis of sigmoid colon (K57.30) Active confirmed Problem [id number] Abdominal pain, suprapubic (R10.2) Active confirmed Encounters Encounter Location Date Provider Diagnosis [facility] [address] [place] [address] 12/03/2023 Onesimo Nogueira Plan Of Treatment Future Test Test Name Order Date COLONOSCOPY 11/22/2020 Insurance Providers Payer Name Payer Address Payer Phone Subscriber Number Group Number Insured Name Patient Relationship to Insured Coverage Start Date Coverage End Date [facility] [address] [address] [place], [place] [id number] NELLI CERNA Self - patient is the insured [place] [address] [place] [address] [id number] NELLI CERNA Self - patient is the insured Medical (General) History Medical History History ICD Code Colonoscopy 04-11-2010--[place] except for hyperplastic polyps, diverticulosis, and internal and external hemorrhoids Hearing loss Arthirits Anxiety Hyperlipidemia NIDDM Allergies Vitamin D deficiency Denies [place],CVA,Lung disease,renal disease Low Testosterone levels IBS Surgical History Surgery Date(Month/Year) Undescended testicle Cholecystectomy
[2024-08-20 15:59] VITALS: BP 110/66; PULSE 89; O2SAT 96; BMI 25.0
--- NOTE | 2024-08-20 15:59 | MHC.PC.OV ---
Vital Signs 08/20/24 15:59 Height 5 ft 6 in Weight 155 lb BMI 25.0 BP 110/66 Blood Pressure Location Lt brachial Position Sitting Pulse 89 Pulse Source Pulse Oximeter Pulse Oximetry (%) 96 Oxygen Delivery Method Room Air Intake Visit Reasons: DM Intake Note: Needs refills on all meds Drop Man Required: No Accompanied by: Self / Same As Patient Allergies Iodinated Contrast Media (IV Dye, Iodine Containing) Allergy (Severe, Verified 08/20/24 16:37) ANAPHYLAXIS aspirin (Aspirin) Allergy (Mild, Verified 08/20/24 16:37) ITCHING ibuprofen (Ibuprofen) Allergy (Mild, Verified 08/20/24 16:37) NAUSEA Penicillins Allergy (Mild, Verified 08/20/24 16:37) ITCHING/SWELLING Gadolinium-Containing Contrast Medi (GADOLINIUM-CONTAINING CONTRAST) Allergy (Unknown, Verified 08/20/24 16:37) UNKNOWN iodine (IODINE) Allergy (Unknown, Verified 08/20/24 16:37) UNKNOWN morphine (MORPHINE) Allergy (Unknown, Verified 08/20/24 16:37) TACHYCARDIA oxycodone (From PERCOCET) Allergy (Unknown, Verified 08/20/24 16:37) N/V,H/A Sulfa (Sulfonamide Antibiotics) (SULFA (SULFONAMIDE ANTIBIOTICS)) Allergy (Unknown, Verified 08/20/24 16:37) UNKNOWN Medication List - Last Reconciled 08/20/24 by Madi Amos MD albuterol sulfate 90 mcg/actuation (Ventolin HFA) 2 puffs PO Q4-6H PRN blood sugar diagnostic (FreeStyle Lite Strips) USE LAN LO INDICADO DOS VECES AL MARTÍN blood-glucose meter As directed twice a day blood-glucose meter (FreeStyle Lite Meter kit) As directed cetirizine 10 mg PO DAILY PRN 90 days cholecalciferol (vitamin D3) 25 mcg PO DAILY 90 days clonazepam 1 mg PO BID PRN 30 days clotrimazole-betamethasone 1-0.05 % 1 appl topical BID 4 weeks [diabetic boots As directed] [DIABETIC SHOES As directed] fluticasone propionate 50 mcg/actuation 1 spray intranasal DAILY lancets (FreeStyle Lancets) As directed-CHECK BLOOD SUGAR TWICE A DAY - Dx: E11.9 loratadine 10 mg PO DAILY PRN 90 days magnesium oxide 400 mg PO BEDTIME 90 days metformin 500 mg PO BID 3 months mometasone 0.1% 1 appl topical DAILY PRN olopatadine 0.1% (Pataday Twice Daily Relief) 1 drp ophthalmic (eye) BID PRN OneTouch Ultra2 Meter (blood-glucose meter) As directed once a day NS sertraline 50 mg PO DAILY 30 days terbinafine HCl 1% (Antifungal (terbinafine)) 1 appl topical BID 14 days testosterone cypionate 200 mg IM .qo week testosterone cypionate 200 mg IM Q4W 28 days Tobacco use date assessed: 08/20/24 Dental Screening Dental Screen Date: 08/20/24 HPI DM HPI Details Patient comes in today for his follow up visit States that he currently feels okay He denies any headaches or dizziness Denies any chest pains, no increased shortness of breath No nausea/vomiting, no abdominal pain No change in bowel habits noted Needs his testosterone injection today Also needs a few of his Rx refilled today He had his follow up labs done a couple of days ago - to discuss his results [facility] Medical History Mixed hyperlipidemia Choking due to phlegm LEIA (obstructive sleep apnea) Snoring Retrognathia Somnolence, daytime ILD (interstitial lung disease) Abnormal chest xray Chest pain Hx of flexible sigmoidoscopy IBS (irritable bowel syndrome) Arthritis Cigar smoker Anxiety Vitamin D deficiency Renal calculi Allergic rhinitis Diabetes mellitus Right hip pain Right shoulder pain Hypotestosteronism Swelling of left hand Left hand pain Surgical History Hx of cystoscopy Hx laparoscopic cholecystectomy History of testicular surgery History of colonoscopy History of lithotripsy Family History Father Prostate cancer Mother Hypertension Hypercholesterolemia Brother Hypertension Diabetes Other Hypotestosteronism Social History Housing: Apartment Alcohol intake: never Patient Tobacco Use Status: Former Tobacco user Tobacco use type: Cigar Cigarettes Per Day: 3 Years Smoked: pt states quit 01/2022 e-Cigarette/Vaping Use: Never Used Second Hand Smoke Exposure: Yes Advance Directives Date on File: 11/07/14 service: No Current occupational status: disabled Cognitive needs: No Hearing needs: No Vision needs: Yes Questionnaire PHQ-9 Over the last 2 weeks, how often have you been bothered by any of the following problems? 1. Little interest or pleasure in doing things: not at all 2. Feeling down, depressed, or hopeless: several days 3. Trouble falling or staying asleep, or sleeping too much: several days 4. Feeling tired or having little energy: several days 5. Poor appetite or overeating: not at all 6. Feeling bad about yourself - or that you are a failure or have let yourself or your family down: not at all 7. Trouble concentrating on things, such as reading the newspaper or watching television: not at all 8. Moving or speaking so slowly that other people could have noticed. Or the opposite - being so fidgety or restless that you have been moving around a lot more than usual: not at all 9. Thoughts that you would be better off or of hurting yourself in some way: not at all Total score: 3 Depression Screening Interpretation: Positive Depression Screening Follow-up: Existing condition and In treatment Depression Screening Done: Yes 61511 - PHQ-9 Billing: Yes Source: Developed by Drs. Onesimo Swenson, Juana Giordano, Spencer Swan and colleagues, with an educational cesar from [employer]. Thrive Questionnaire Date Thrive assessed: 08/20/24 I am a: Patient What is your living situation today?: I have a steady place to live Within the past 12 months, did the food you bought not last and you didn't have the money to get more?: Sometimes True Within the past 12 months, did you worry whether your food would run out before you got money to buy more?: Sometimes True Do you have trouble paying for medicines?: No Do you have trouble getting transportation to medical appointments?: No Do you have trouble paying your heating and electricity bill?: No Do you have trouble taking care of your child, family member or friend?: I choose not to answer this question Do you have trouble with day-to-day activities such as bathing, preparing meals, shopping, managing finances, etc.?: I choose not to answer this question Are you currently unemployed and looking for a job?: No Are you interested in more education?: No Please select the resources that you would like help with: None Currently or been in a relationship where the following occur: No concerns reported THRIVE Score: 2 AUDIT C Alcohol Use Questionnaire (AUDIT-C) 1. How often do you have a drink containing alcohol?: Never 3. How often do you have six or more drinks on one occasion?: Never Total Score: 0 Score Reviewed/Action Taken: Yes MALIK-7 AMB Questionnaire MALIK-7 Date MALIK - 7 assessed: 08/20/24 Feeling nervous, anxious, or on edge: 1 = Several days Not being able to stop or control worryin = Not at all Worrying too much about different things: 0 = Not at all Trouble relaxin = Not at all Being so restless that it is hard to sit still: 0 = Not at all Becoming easily annoyed or irritable: 0 = Not at all Feeling afraid as if something awful might happen: 0 = Not at all Total MALIK-7 score (0-4 normal; 5-9 mild; 10-14 moderate; 15-21 severe): 1 Source: Developed by Drs. Onesimo Swenson, Juana Giordano, Spencer Swan and colleagues, with an educational cesar from [employer]. Review of Systems Const Denies chills, Reports fatigue, Denies fever(s) and Denies headache(s) ENT Denies dysphagia, Denies dizziness, Denies otalgia, Denies headache(s), Denies neck pain, Denies odynophagia and Denies sore throat Card Denies chest pain, Denies syncope, Denies palpitations and Denies dyspnea Resp Denies chest congestion, Denies cough and Denies dyspnea GI Denies abdominal pain, Denies constipation, Denies dysphagia, Denies heartburn, Denies diarrhea, Reports loose stools (at times (S/P cholecystectomy) ), Denies nausea, Denies odynophagia and Denies vomiting Denies dysuria, Denies nocturia and Denies urinary frequency Musc Reports back pain (over the lower back), Reports arthralgias (increased pain over the right hip for the past few months) and Denies neck pain Skin/Breast Denies rash Neuro Denies dizziness, Denies syncope and Denies headache(s) Psych Reports anxiety Endo Reports fatigue and Denies palpitations Physical exam (Primary Care) Vital Signs: Last Vital Signs Pulse 89 08/20/24 15:59 BP 110/66 08/20/24 15:59 Pulse Ox 96 08/20/24 15:59 Oxygen Delivery Method Room Air 08/20/24 15:59 BMI result Body Mass Index 25.0 Tobacco/Smoking Status: Tobacco use Status Tobacco use date assessed 08/20/24 08/20/24 16:00 Patient Tobacco Use Status Former Tobacco user 08/20/24 16:00 Tobacco use type Cigar 08/20/24 16:00 e-Cigarette/Vaping Use Never Used 08/20/24 16:00 PHQ-9: PHQ-9 Score PHQ-9: Total score 3 08/20/24 16:44 Depression Screening Interpretation: Positive Depression Screening Follow-up: Existing condition and In treatment Thrive Assessment: Date of Thrive Assessment Date Thrive assessed 08/20/24 08/20/24 16:43 Currently or been in a relationship where the following occur: No concerns reported Const General: no acute distress and alert HENMT Ears: TM's normal bilaterally and EAC's normal Throat: Yes posterior oropharynx normal and Yes tonsils normal (no TP congestion) Neck Neck: Yes supple and No lymphadenopathy Thyroid: Thyroid normal Resp Auscultation: clear to auscultation bilaterally, no rales and no wheezes Cardio Rate: regular rate Rhythm: regular rhythm Heart sounds: no murmurs GI Palpation (GI): Soft to palpation and nontender Auscultation: normal bowel sounds General: Yes no CVA tenderness Back/Spine/Pelvis Back: no CVA tenderness Thoracic/Lumbar Spine: lumbar spinal tenderness (mild) Skin Rashes: no rashes Extrem General: Yes no clubbing, cyanosis or edema Office Meds testosterone cypionate 200 mg/mL intramuscular kit Performing Provider: Madi Amos MD Performing Location: [facility] [place] [facility] Administered by: Hortencia Og LPN on 08/20/24 16:00 Dose Route Admin Location Dispensed Lot Number Expiration Date NDC [employer] 200 mg IM left buttock 1 ea [id number] 01/23/27 2125-7891-81 [facility] Total Dispensed Waste 1 ea 0 % Results Reviewed Results Reviewed: Laboratory Tests 08/18/24 08/18/24 09:49 09:54 WBC 8.9 Hgb 16.4 Hct 47.6 Plt Count 243 Sodium 139 Potassium 4.0 Creatinine 1.11 Estimated GFR > 60 Fasting Glucose 108 H Hemoglobin A1c % 6.4 H Calcium 9.4 AST 45 H ALT 38 Triglycerides 175 H Cholesterol 170 LDL Cholesterol, Calc 105 H HDL Cholesterol 30 L 25-OH Vitamin D Total 59.6 TSH 2.54 Ur Specific Cody 1.025 Urine Protein Negative Urine Glucose (UA) Negative Urine Blood Negative Urine Nitrite Negative Ur Leukocyte Esterase Negative Coding Level of Care Code Est Pt Level 4 (51774) Complex EM visit Add On G2211 Diagnoses Type 2 diabetes mellitus without complication, without long-term current use of insulin E11.9 Diabetes mellitus complication status: without complication Diabetes mellitus intermediate card tender insulin use: without intermediate card tender use Diabetes mellitus type: type 2 Mixed hyperlipidemia E78.2 ILD (interstitial lung disease) J84.9 Allergic rhinitis, unspecified seasonality, unspecified trigger J30.9 Allergic rhinitis seasonality: unspecified Allergic rhinitis trigger: unspecified Hypotestosteronism E34.9 Vitamin D deficiency E55.9 Right hip pain M25.551 Renal calculi N20.0 Anxiety F41.9 Additional Codes PHQ-9 - 76295 - PHQ-9 Billing: Yes ([id number]) Assessment & Plan Assessment & Plan (1) Diabetes mellitus: Comment: taking metformin Code(s): E11.9 - Type 2 diabetes mellitus without complications Category: Medical Qualifiers: Diabetes mellitus complication status: without complication Diabetes mellitus correction insulin use: without intermediate card tender use Diabetes mellitus type: type 2 Qualified Code(s): E11.9 - Type 2 diabetes mellitus without complications Plan: His HgbA1c was at 6.4% on his labs done a couple of days ago (in-office HgbA1c was at 6.7% a few months ago) - goal is at least <7.0% but ideally <6.5% Reinforced diabetic diet Continue Metformin 500 mg BID (2) Mixed hyperlipidemia: Code(s): E78.2 - Mixed hyperlipidemia Category: Medical Plan: Results of his labs done a couple of days ago reviewed and discussed with patient Reinforced low cholesterol diet Will recheck his labs and fasting lipids in 3 months for follow up (3) ILD (interstitial lung disease): Comment: History of smoking cigars. CT scan changes of chronic interstitial lung disease/ most likely pulmonary fibrosis. The patient is almost asymptomatic except for mild intermittent cough. Code(s): J84.9 - Interstitial pulmonary disease, unspecified Category: Medical Plan: Patient still has ARORA at times but symptoms have been mostly mild Follow up with pulmonary (Dr. Rojas) as scheduled (4) Allergic rhinitis: Comment: Chronic nasal congestion and postnasal discharge, secondary to allergic rhinitis,. controlled Code(s): J30.9 - Allergic rhinitis, unspecified Category: Medical Qualifiers: Allergic rhinitis seasonality: unspecified Allergic rhinitis trigger: unspecified Qualified Code(s): J30.9 - Allergic rhinitis, unspecified Plan: Continue Cetirizine 10 mg QD PRN and Fluticasone 50 mcg nasal spray QD PRN He takes Loratadine 10 mg QD PRN if his symptoms are milder (5) Hypotestosteronism: Code(s): E34.9 - Endocrine disorder, unspecified Category: Medical Plan: Patient's testosterone level was still low at 115 ng/dl when it was last checked in March 2024 Continue Testosterone injections 200 mg every 4 weeks - dose given today Will continue to monitor his serum testosterone level regularly (6) Vitamin D deficiency: Code(s): E55.9 - Vitamin D deficiency, unspecified Category: Medical Plan: Continue Vitamin D3 1000 units QD Will recheck his Vitamin D level in 3 months for follow up (7) Right hip pain: Code(s): M25.551 - Pain in right hip Category: Medical Plan: X-rays of the hips done back on 07/08/2022 revealed (+) small ossicle adjacent to the superior lateral hip joint similar to previous exam in March 2020 Repeat x-rays of the right hip done a few months ago came back normal Patient has been referred to orthopedics for further evaluation and management of his increasing right hip pains and he will continue to follow up with orthopedics for this (8) Renal calculi: Comment: S/P ESWL last year Code(s): N20.0 - Calculus of kidney Category: Medical Plan: Patient has been asymptomatic lately with regards to this Follow up with urology as scheduled (9) Anxiety: Code(s): F41.9 - Anxiety disorder, unspecified Category: Medical Plan: Continue Clonazepam 1 mg 1 to 2 tablets BID PRN We tried starting him on Sertraline 50 mg Q AM previously but patient did not feel that he needed to continue on it and self-discontinued the medication shortly afterwards Plan Follow up in 3 months Orders: Orders UA CC w/rflx Micro + Cult 3 Months R30.0 - Dysuria Vitamin D 25-OH Total 3 Months E55.9 - Vitamin D deficiency, unspecified AMB Testosterone Injection Patient Supplied N/C 08/20/24 R79.89 - Other specified abnormal findings of blood chemistry Lipid Panel 3 Months E78.00 - Pure hypercholesterolemia, unspecified Complete Blood Count Auto Diff 3 Months D64.9 - Anemia, unspecified Comprehensive Reese. Panel Fast 3 Months E78.00 - Pure hypercholesterolemia, unspecified TSH reflex Free T4 3 Months E78.00 - Pure hypercholesterolemia, unspecified Hemoglobin A1c 3 Months E11.9 - Type 2 diabetes mellitus without complications Microalbumin, Random (w Creat) 3 Months E11.9 - Type 2 diabetes mellitus without complications Vitamin B12 and Folate 3 Months E53.8 - Deficiency of other specified B group vitamins Medications: Refilled fluticasone propionate 50 mcg/actuation 1 spray intranasal DAILY 16 mL 1RF sertraline 50 mg PO DAILY 30 tabs 3RF anxiety 30 days F41.9 - Anxiety disorder, unspecified loratadine 10 mg PO DAILY PRN 90 tabs 1RF allergies 90 days testosterone cypionate 200 mg IM Q4W 1 mL 2RF 28 days E34.9 - Endocrine disorder, unspecified
== END 2024-08-20 17:05 | disposition home or self-care (01) ==
LOC: HO.HMCH 15:50
PROVIDERS: PCP Internal Medicine; Visit Provider Internal Medicine
DX: R79.89 Other specified abnormal findings of blood chemistry (principal)

== ENCOUNTER → 2024-08-20 15:49 | Outpatient (BNVA) | payer OTHER, SELFPAY | PROVIDERS: PCP Internal Medicine; Visit Provider Internal Medicine | DX: E11.9 Type 2 diabetes mellitus without complications (principal); E78.2 Mixed hyperlipidemia; J84.9 Interstitial pulmonary disease, unspecified; J30.9 Allergic rhinitis, unspecified; E34.9 Endocrine disorder, unspecified; E55.9 Vitamin D deficiency, unspecified; M25.551 Pain in right hip; N20.0 Calculus of kidney; F41.9 Anxiety disorder, unspecified | CPT/HCPCS: 96127; 96372; 99212 ==

== ENCOUNTER 2024-09-24 15:28 | Outpatient (AMB) | payer OTHER, SELFPAY ==
--- NOTE | 2024-09-24 15:24 | A.OFFVIS_ITS ---
Intake Visit Reasons: ureteral stricture Intake Note: New patient presents today for initial visit for ureteral stricture Urology Medication:Testosterone Blood Thinner:none Antibiotic Allergies:PCN Allergies Iodinated Contrast Media (IV Dye, Iodine Containing) Allergy (Severe, Verified 09/24/24 15:40) ANAPHYLAXIS aspirin (Aspirin) Allergy (Mild, Verified 09/24/24 15:40) ITCHING ibuprofen (Ibuprofen) Allergy (Mild, Verified 09/24/24 15:40) NAUSEA Penicillins Allergy (Mild, Verified 09/24/24 15:40) ITCHING/SWELLING Gadolinium-Containing Contrast Medi (GADOLINIUM-CONTAINING CONTRAST) Allergy (Unknown, Verified 09/24/24 15:40) UNKNOWN iodine (IODINE) Allergy (Unknown, Verified 09/24/24 15:40) UNKNOWN morphine (MORPHINE) Allergy (Unknown, Verified 09/24/24 15:40) TACHYCARDIA oxycodone (From PERCOCET) Allergy (Unknown, Verified 09/24/24 15:40) N/V,H/A Sulfa (Sulfonamide Antibiotics) (SULFA (SULFONAMIDE ANTIBIOTICS)) Allergy (Unknown, Verified 09/24/24 15:40) UNKNOWN Medication List - Last Reconciled 09/24/24 by Mony Schmitt MD albuterol sulfate 90 mcg/actuation (Ventolin HFA) 2 puffs PO Q4-6H PRN blood sugar diagnostic (FreeStyle Lite Strips) USE LAN LO INDICADO DOS VECES AL MARTÍN blood-glucose meter As directed twice a day blood-glucose meter (FreeStyle Lite Meter kit) As directed cetirizine 10 mg PO DAILY PRN 90 days cholecalciferol (vitamin D3) 25 mcg PO DAILY 90 days clonazepam 1 mg PO BID PRN 30 days clotrimazole-betamethasone 1-0.05 % 1 appl topical BID [diabetic boots As directed] [DIABETIC SHOES As directed] fluticasone propionate 50 mcg/actuation 1 spray intranasal DAILY lancets (FreeStyle Lancets) As directed-CHECK BLOOD SUGAR TWICE A DAY - Dx: E11.9 loratadine 10 mg PO DAILY PRN 90 days magnesium oxide 400 mg PO BEDTIME 90 days metformin 500 mg PO BID 3 months mometasone 0.1% 1 appl topical DAILY PRN olopatadine 0.1% (Pataday Twice Daily Relief) 1 drp ophthalmic (eye) BID PRN OneTouch Ultra2 Meter (blood-glucose meter) As directed once a day NS sertraline 50 mg PO DAILY 30 days terbinafine HCl 1% (Antifungal (terbinafine)) 1 appl topical BID 14 days testosterone cypionate 200 mg IM .qo week testosterone cypionate 200 mg IM Q4W 28 days HPI Comments Details: 09/24/24 History of Present Illness - The patient is a 63-year-old male presenting with urethral stricture and low testosterone levels. - The patient has been receiving testosterone injections due to low testosterone levels. 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 - The remaining testicle is small, supported by testosterone injections. - The patient is experiencing a urethral stricture with a progressively closing urethral meatus over the past two to three months. - Topical creams previously used were ineffective in managing the condition. Plan - Schedule urethral dilation and cystoscopy as an outpatient procedure to address the urethral stricture. - Prescribe Lotrisone cream for temporary relief of urethral stricture symptoms until the procedure is performed. FORMERLY [facility], [facility]–1983 Medical History Mixed hyperlipidemia Choking due to phlegm LEIA (obstructive sleep apnea) Snoring Retrognathia Somnolence, daytime ILD (interstitial lung disease) Abnormal chest xray Chest pain Hx of flexible sigmoidoscopy IBS (irritable bowel syndrome) Arthritis Cigar smoker Anxiety Vitamin D deficiency Renal calculi Allergic rhinitis Diabetes mellitus Right hip pain Right shoulder pain Hypotestosteronism Swelling of left hand Left hand pain Surgical History Hx of cystoscopy Hx laparoscopic cholecystectomy History of testicular surgery History of colonoscopy History of lithotripsy Family History Father Prostate cancer Mother Hypertension Hypercholesterolemia Brother Hypertension Diabetes Other Hypotestosteronism Social History Housing: Apartment Alcohol intake: never Patient Tobacco Use Status: Former Tobacco user Tobacco use type: Cigar Cigarettes Per Day: 3 Years Smoked: pt states quit 01/2022 e-Cigarette/Vaping Use: Never Used Second Hand Smoke Exposure: Yes Advance Directives Date on File: 11/07/14 service: No Current occupational status: disabled Cognitive needs: No Hearing needs: No Vision needs: Yes Review of Systems Const All systems reviewed & are unremarkable except as noted in HPI and below Reports no additional complaints Eyes Reports no additional complaints ENT Reports no additional complaints Card Reports no additional complaints Resp Reports no additional complaints GI Reports no additional complaints Reports as per HPI Musc Reports no additional complaints Skin/Breast Reports system reviewed and no additional complaints, except as documented Neuro Reports no additional complaints Psych Reports no additional complaints Endo Reports no additional complaints Andres/Lymph Reports no additional complaints Aller/Immun Reports no additional complaints Physical Exam Const General: healthy appearing, no acute distress and well developed Orientation/consciousness: patient oriented x3 HEENT Head: Yes normocephalic and Yes atraumatic Eyes Conjunctivae: conjunctivae normal Neck Neck: Yes normal visual inspection Chest Chest palpation & inspection: normal inspection of the chest Resp Effort & Inspection: normal respiratory effort GI Inspection: Yes normal to inspection Palpation (GI): Soft to palpation Other: Urethral meatus pinpoint stricture, unable to palpare the solitary testicle Neuro General: patient oriented x3 Psych Appearance: grossly normal Affect: normal affect Results AMB Urinalysis, Automated UA Leukoctes 0 Lesley/uL Last Edit by April East on 09/24/24 17:00 UA Nitrite Negative Last Edit by April East on 09/24/24 17:00 UA Urobilinogen 3.5 mg/dL Last Edit by April East on 09/24/24 17:00 UA Protein 0 mg/dL Last Edit by April East on 09/24/24 17:00 UA pH 5.5 Last Edit by April East on 09/24/24 17:00 UA Blood 0 Galen/uL Last Edit by April East on 09/24/24 17:00 UA Specific Dakota 1.015 Last Edit by April East on 09/24/24 17:00 UA Ketone Negative Last Edit by April East on 09/24/24 17:00 UA Bilirubin 0 mg/dL Last Edit by April East on 09/24/24 17:00 UA Glucose 0 mg/dL Last Edit by April East on 09/24/24 17:00 Results Reviewed Results Reviewed: Laboratory Last Values Urine pH (Auto) 5.5 09/24/24 15:55 Specific [place] (Auto) 1.015 09/24/24 15:55 Urine Protein (Auto) 0 mg/dL 09/24/24 15:55 Glucose (UA)(Auto) 0 mg/dL 09/24/24 15:55 Urine Ketones (Auto) Negative 09/24/24 15:55 Urine Blood (Auto) 0 Galen/uL 09/24/24 15:55 Urine Nitrite (Auto) Negative 09/24/24 15:55 Urine Bilirubin (Auto) 0 mg/dL 09/24/24 15:55 Urine Urobilinogen (Auto) 3.5 mg/dL 09/24/24 15:55 Leukocyte Esterase (Auto) 0 Lesley/uL 09/24/24 15:55 Assessment & Plan Assessment & Plan (1) Low serum testosterone level: Code(s): R79.89 - Other specified abnormal findings of blood chemistry Category: Medical (2) Urethral meatal stenosis: Code(s): N35.919 - Unspecified urethral stricture, male, unspecified site Category: Medical Plan Plan - Schedule urethral dilation and cystoscopy as an outpatient procedure to address the urethral stricture. - Prescribe Lotrisone cream for temporary relief of urethral stricture symptoms until the procedure is performed. Orders: Orders AMB Urinalysis Automated 09/24/24 Z13.9 - Encounter for screening, unspecified Medications: Changed From clotrimazole-betamethasone 1-0.05 % Apply thin coat 2 times per day 1 appl topical BID 4 weeks 45 grams 0RF N48.1 - Balanitis To clotrimazole-betamethasone 1-0.05 % Apply thin coat 2 times per day 1 appl topical BID 45 grams 1RF N48.1 - Balanitis Patient Instructions: The patient had an opportunity to ask questions regarding treatment plan. The patient expressed understanding and agreement with the above treatment plan. The patient is aware they should contact our office by phone for worsening of their current condition or the appearance of new symptoms. Compliance is encouraged with any medications and followup testing that is ordered. It is a privilege to be allowed the opportunity to participate in the urologic care of your patient. If you have any questions or concerns regarding treatment for the above conditions please do not hesitate to contact me. The office telephone contact is [phone]. This note is constructed in part using voice recognition software. While every effort has been made to ensure accuracy veneer sawyer errors may have been included. Yours sincerely, Mony Schmitt MD Scribe Plan - Not visible on output: Patient was informed and verbally consented to the use of an ambient scribe for clinic note documentation during this visit. Coding Level of Care Code New Pt Level 4 (42414) Diagnoses Low serum testosterone level R79.89 Urethral meatal stenosis N35.919
--- OUTSIDE RECORDS SUMMARY | 2024-09-24 15:30 | XMS_ITS | Encounter Summary ---
Author Organization [facility] Address [address] [place] [address] Care Team Providers Care Radial Arm Saw Operator Name Role Phone Unavailable Primary Care Provider [...]
--- OUTSIDE RECORDS SUMMARY | 2024-09-24 15:30 | XMS_ITS | Patient Health Record ---
Author Organization [facility] Address [address] [place] [address] Care Team Providers Care Track Inspector Name Role Phone Rainer Amos MDneth Primary Care Provider Unava Onesimo Dick Unavailable [phone] Allergies Allergen (clinical drug ingredient) Drug/Non Drug Allergy documented on EMR Reaction Allergy Type Onset Date Status Sulfacet-R Unknown Drug Allergy Active penicillamine Penicillamine Unknown Drug Allergy Active ibuprofen Ibuprofen Unknown Drug Allergy Active IVP dye (uncoded) Unknown Allergy Ac tive morphine Morphine Unknown Drug Allergy Active oxycodone Oxycodone Unknown Drug Allergy Active Iodine Unknown Drug Allergy Active Gadolinium Unknown Drug Allergy Active aspirin Aspirin Unknown Drug Allergy Active Reason For Referral [...] Problem Status W/U Status Risk Notes Problem [id number] Encounter for screening for malignant neoplasm of colon (Z12.11) Active confirmed Problem 13711412 Rectal pain (K62.89) Active confirmed Problem Diverticulosis of sigmoid colon (017609408) Diverticulosis of sigmoid colon (K57.30) Active confirmed Problem [id number] Abdominal pain, suprapubic (R10.2) Active confirmed Encounters Encounter Location Date Provider Diagnosis [facility] [address] [place] [address] 12/03/2023 Onesimo Nogueira Plan Of Treatment Future Test Test Name Order Date COLONOSCOPY 11/22/2020 Insurance Providers Payer Name Payer Address Payer Phone Subscriber Number Group Number Insured Name Patient Relationship to Insured Coverage Start Date Coverage End Date [facility] [address] [address] [place], [place] [phone] [id number] NELLI CERNA Self - patient is the insured [place] [address] [place] [address] [id number] NELLI CERNA Self - patient is the insured Medical (General) History Medical History History ICD Code Colonoscopy 04-11-2010--[place] except for hyperplastic polyps, diverticulosis, and internal and external hemorrhoids Hearing loss Arthirits Anxiety Hyperlipidemia NIDDM Allergies Vitamin D deficiency Denies UT,CVA,Lung disease,renal disease Low Testosterone levels IBS Surgical History Surgery Date(Month/Year) Undescended testicle Cholecystectomy
== END 2024-09-24 16:33 | disposition home or self-care (01) ==
PROVIDERS: PCP Internal Medicine; Visit Provider Urology
DX: R79.89 Other specified abnormal findings of blood chemistry (principal); N35.919 Unspecified urethral stricture, male, unspecified site
CPT/HCPCS: 99204

== ENCOUNTER → 2024-09-24 15:28 | Outpatient (BNVA) | payer OTHER, SELFPAY | PROVIDERS: PCP Internal Medicine; Visit Provider Urology | DX: E29.1 Testicular hypofunction (principal); N35.919 Unspecified urethral stricture, male, unspecified site; R79.89 Other specified abnormal findings of blood chemistry | CPT/HCPCS: 81003; 99202 ==

== ENCOUNTER 2024-09-28 12:58 | Day surgery (SDC) | payer OTHER, SELFPAY ==
[2024-09-28] VITALS (7 sets, daily range): BP systolic 95–117; BP diastolic 57–80; PULSE 60–70; RESP 12–16; TEMP 36.1–36.7; O2SAT 95–100; BMI 24.2
[2024-09-28 13:37] LABS: Glucose, Whole Blood 108 mg/dL (60-115)
--- NOTE | 2024-09-28 14:05 | MHC.SHP ---
Pre-Procedural Eval Section A - 24 Hr Update-Section A only Date of Service: 09/28/24 The patient is an INPATIENT: No The patient has been examined within 24 hours of the surgical procedure. The History & Physical has been completed within 30 days and I have reviewed it.: Yes Section B - Complete if H&P > 30 days Chief Complaint: Unspecified urethral stricture, male, unspecified Allergies: Allergies Allergy/AdvReac Type Severity Reaction Status Date / Time Iodinated Contrast Media (IV Allergy Severe ANAPHYLAXIS Verified 09/28/24 13:25 Dye, Iodine Containing) aspirin (Aspirin) Allergy Mild ITCHING Verified 09/28/24 13:25 ibuprofen (Ibuprofen) Allergy Mild NAUSEA Verified 09/28/24 13:25 Penicillins Allergy Mild ITCHING/SWE Verified 09/28/24 13:25 LLING Gadolinium-Containing Allergy Unknown UNKNOWN Verified 09/28/24 13:25 Contrast Medi (GADOLINIUM-CONTAINING CONTRAST) iodine (IODINE) Allergy Unknown UNKNOWN Verified 09/28/24 13:25 morphine (MORPHINE) Allergy Unknown TACHYCARDIA Verified 09/28/24 13:25 oxycodone (From PERCOCET) Allergy Unknown N/V,H/A Verified 09/28/24 13:25 Sulfa (Sulfonamide Allergy Unknown UNKNOWN Verified 09/28/24 13:25 Antibiotics) (SULFA (SULFONAMIDE ANTIBIOTICS)) Plan Diagnosis/Plan: Unchanged I have reviewed the history and physical and performed a pertinent physical examination on my patient. No changes have occurred unless specified. Urethral Dilation, Cystoscopy. Rivas catheter. Time Spent With Patient Time: Total time managing care of this patient today ____ minutes.
--- NOTE | 2024-09-28 14:05 | W.PM.OPN ---
Operative Note Operative Note Date of Service: 09/28/24 Narrative: PREOP DIAGNOSIS: Meatal stenosis fossa navicularis, low testosterone POSTOP DIAGNOSIS: Meatal stenosis fossa navicularis, low testosterone PROCEDURE: Urethral dilation, cystoscopy SURGEON: Mony Schmitt MD ANESTHESIA: General Indications: Pinpoint opening at meatus causing obstructive voiding pattern. Details of procedure: The patient was brought into the operating room placed on the OR table in supine position. Cipro 400 mg IV. General anesthesia was administered. The patient was repositioned into lithotomy position, prepped and draped in the usual sterile fashion. Time-out was done per protocol. The urethral meatal dilator was initially passed followed by an 8 Haitian Sarkis sounds with gradual dilation sequentially to a 22 Haitian sound. A 22 fr cystoscope was placed transurethrally, the bulbous urethra was within normal limits. The prostatic urethra was nonobstructive. The bladder was visualized. The right and left ureteral orifices were visualized. Mild to moderate trabeculations noted. There were no suspicious bladder lesions seen. The patient was brought out of anesthesia and taken to recovery in stable condition. Complications: None Drains: none
--- NOTE | 2024-09-28 15:07 | P.CONAN1_ITS ---
<Statement entered by Isaac Escalante MD - 09/29/24 07:07> document signed History of Present Illness Consult details Consult date: 09/28/24 [facility] Past Medical History Medical History Mixed hyperlipidemia Choking due to phlegm LEIA (obstructive sleep apnea) Snoring Retrognathia Somnolence, daytime ILD (interstitial lung disease) Abnormal chest xray Chest pain Hx of flexible sigmoidoscopy IBS (irritable bowel syndrome) Arthritis Cigar smoker Anxiety Vitamin D deficiency Renal calculi Allergic rhinitis Diabetes mellitus Right hip pain Right shoulder pain Hypotestosteronism Swelling of left hand Left hand pain Cognitive capacity: normal Functional capacity: independent ambulation Family History Family History Father Prostate cancer Mother Hypertension Hypercholesterolemia Brother Hypertension Diabetes Other Hypotestosteronism Family history: reviewed and not pertinent Surgical History Surgical History Hx of cystoscopy Hx laparoscopic cholecystectomy History of testicular surgery History of colonoscopy History of lithotripsy History of Problems with Anesthesia: No Social History Social History Housing: Apartment Are you a primary vision care associate to a significant other at home: No Do you presently have visiting nurse or other home services: No Alcohol intake: never Patient Tobacco Use Status: Former Tobacco user Tobacco use type: Cigar Cigarettes Per Day: 3 Years Smoked: pt states quit 01/2022 e-Cigarette/Vaping Use: Never Used Second Hand Smoke Exposure: Yes Use of substances other than those prescribed or required for medical reasons: No Have you been hit, kicked, punched, or otherwise hurt by someone within the past year? If so, by whom?: No Are you DNR?: No Advance Directives: No Advance Directives Information Provided: Yes Advance Directives Date on File: 11/07/14 Poor oral hygiene: No service: No Current occupational status: disabled Cognitive needs: No Hearing needs: No Vision needs: Yes Travel History Ebola Risk: Travel/Contact With Anyone From Affected Area/s: No Has Patient Experienced Ebola Symptoms: No Ebola Symptoms Experienced: Abdominal Pain Meds Allergies Allergy/AdvReac Type Severity Reaction Status Date / Time Iodinated Contrast Media (IV Allergy Severe ANAPHYLAXIS Verified 09/28/24 13:25 Dye, Iodine Containing) aspirin (Aspirin) Allergy Mild ITCHING Verified 09/28/24 13:25 ibuprofen (Ibuprofen) Allergy Mild NAUSEA Verified 09/28/24 13:25 Penicillins Allergy Mild ITCHING/SWE Verified 09/28/24 13:25 LLING Gadolinium-Containing Allergy Unknown UNKNOWN Verified 09/28/24 13:25 Contrast Medi (GADOLINIUM-CONTAINING CONTRAST) iodine (IODINE) Allergy Unknown UNKNOWN Verified 09/28/24 13:25 morphine (MORPHINE) Allergy Unknown TACHYCARDIA Verified 09/28/24 13:25 oxycodone (From PERCOCET) Allergy Unknown N/V,H/A Verified 09/28/24 13:25 Sulfa (Sulfonamide Allergy Unknown UNKNOWN Verified 09/28/24 13:25 Antibiotics) (SULFA (SULFONAMIDE ANTIBIOTICS)) Active Medications: Current Medications Ciprofloxacin (Cipro) 400 mg in 200 mls @ 200 mls/hr IV ONCE ONE Stop: 09/28/24 15:36 Home Medications ?Medication ?Instructions ?Recorded ?Confirmed ?Last Taken ?Type testosterone cypionate 200 mg/mL 200 mg IM .qo week 09/28/24 Unknown History intramuscular oil Physical Exam Vital Signs: Vital Signs: Last Vital Signs Temp 98.0 F 09/28/24 13:26 Pulse 63 09/28/24 13:26 Resp 12 09/28/24 13:26 BP 112/60 09/28/24 13:26 Pulse Ox 97 09/28/24 13:26 O2 Del Method Room Air 09/28/24 13:26 BMI result Body Mass Index 24.2 Chest: Chest palpation & inspection: normal inspection of the chest Results Labs Labs: All other labs normal. Assessment and Plan Plan general anesthesia Procedures Date of Service Date of Service: 09/28/24
--- NOTE | 2024-09-28 15:12 | HO.ANESPROP2 ---
[facility] Active Problems Active Problems: All Active Problems (Updated 08/24/24 @ 01:46 by Madi Amos MD) Urethral meatal stenosis (Acute) Phimosis (Acute) Lumbar radiculopathy (Acute) Mixed hyperlipidemia (Acute) Cramping of feet (Acute) Low serum testosterone level (Acute) Choking due to phlegm (Chronic) Low back pain (Acute) Right hand pain (Acute) Allergic conjunctivitis (Acute) Hypotension (Acute) Fatigue (Acute) Weakness (Acute) Dysphagia (Acute) LEIA (obstructive sleep apnea) (Acute) Loose stools (Acute) Skin lesion of scalp (Acute) Snoring (Acute) Retrognathia (Acute) Somnolence, daytime (Acute) Bilateral hand pain (Acute) ILD (interstitial lung disease) (Acute) Daytime somnolence (Acute) Abnormal chest xray (Acute) Chest pain (Acute) Pleuritic chest pain (Acute) Rash of hand (Acute) BXO (balanitis xerotica obliterans) (Acute) Colon cancer screening (Acute) Cigar smoker (Acute) Anxiety (Acute) Vitamin D deficiency (Acute) Renal calculi (Acute) Allergic rhinitis (Acute) Diabetes mellitus (Acute) Right hip pain (Acute) Right shoulder pain (Acute) Hypotestosteronism (Acute) Swelling of left hand (Acute) Left hand pain (Acute) Past Medical History Medical History Mixed hyperlipidemia Choking due to phlegm LEIA (obstructive sleep apnea) Snoring Retrognathia Somnolence, daytime ILD (interstitial lung disease) Abnormal chest xray Chest pain Hx of flexible sigmoidoscopy IBS (irritable bowel syndrome) Arthritis Cigar smoker Anxiety Vitamin D deficiency Renal calculi Allergic rhinitis Diabetes mellitus Right hip pain Right shoulder pain Hypotestosteronism Swelling of left hand Left hand pain Functional capacity: independent ambulation Family History Family History Father Prostate cancer Mother Hypertension Hypercholesterolemia Brother Hypertension Diabetes Other Hypotestosteronism Family history of problems with anesthesia: No Surgical History Surgical History Hx of cystoscopy Hx laparoscopic cholecystectomy History of testicular surgery History of colonoscopy History of lithotripsy History of Problems with Anesthesia: No Social History Social History Housing: Apartment Are you a primary primary care nurse to a significant other at home: No Do you presently have visiting nurse or other home services: No Alcohol intake: never Patient Tobacco Use Status: Former Tobacco user Tobacco use type: Cigar Cigarettes Per Day: 3 Years Smoked: pt states quit 01/2022 e-Cigarette/Vaping Use: Never Used Second Hand Smoke Exposure: Yes Use of substances other than those prescribed or required for medical reasons: No Have you been hit, kicked, punched, or otherwise hurt by someone within the past year? If so, by whom?: No Are you DNR?: No Advance Directives: No Advance Directives Information Provided: Yes Advance Directives Date on File: 11/07/14 Poor oral hygiene: No service: No Current occupational status: disabled Cognitive needs: No Hearing needs: No Vision needs: Yes Meds Allergies Allergy/AdvReac Type Severity Reaction Status Date / Time Iodinated Contrast Media (IV Allergy Severe ANAPHYLAXIS Verified 09/28/24 13:25 Dye, Iodine Containing) aspirin (Aspirin) Allergy Mild ITCHING Verified 09/28/24 13:25 ibuprofen (Ibuprofen) Allergy Mild NAUSEA Verified 09/28/24 13:25 Penicillins Allergy Mild ITCHING/SWE Verified 09/28/24 13:25 LLING Gadolinium-Containing Allergy Unknown UNKNOWN Verified 09/28/24 13:25 Contrast Medi (GADOLINIUM-CONTAINING CONTRAST) iodine (IODINE) Allergy Unknown UNKNOWN Verified 09/28/24 13:25 morphine (MORPHINE) Allergy Unknown TACHYCARDIA Verified 09/28/24 13:25 oxycodone (From PERCOCET) Allergy Unknown N/V,H/A Verified 09/28/24 13:25 Sulfa (Sulfonamide Allergy Unknown UNKNOWN Verified 09/28/24 13:25 Antibiotics) (SULFA (SULFONAMIDE ANTIBIOTICS)) Active Medications: Current Medications Ciprofloxacin (Cipro) 400 mg in 200 mls @ 200 mls/hr IV ONCE ONE Stop: 09/28/24 15:36 Home Medications ?Medication ?Instructions ?Recorded ?Confirmed ?Last Taken ?Type testosterone cypionate 200 mg/mL 200 mg IM .qo week 01/02/22 09/28/24 Unknown History intramuscular oil Exam Exam Date and Time: 09/28/2024 Height,Weight and Vital Signs: Height 5 ft 6 in Weight 68 kg Last Vital Signs Temp 98.0 F 09/28/24 13:26 Pulse 63 09/28/24 13:26 Resp 12 09/28/24 13:26 BP 112/60 09/28/24 13:26 Pulse Ox 97 09/28/24 13:26 O2 Del Method Room Air 09/28/24 13:26 Pertinent Lab Results Pertinent Lab Results: Laboratory Tests 09/28/24 13:34 POC Glucose 108 Airway Mallampati Class: II TM Dist: >3cm Neck ROM: Full Heart: rrr Lungs: cta Other: normal Assessment and Plan Final Anesthetic Review Family History of Problems with Anesthesia: No History of Problems with Anesthesia: No NPO: Yes ASA Class: II Final Preanesthetic Review: No Changes in Pt Med Stat, Meds/Allgs Chart Reviewed, Consent Obtained/Reviewed and Anes Risks/Benef Reviewed Patient Risk: Low Procedure Risk: Low Anesthetic Plan Anesthetic Plan: GA Disposition: Standard PACU
== END 2024-09-28 17:40 | disposition home or self-care (01) ==
PROVIDERS: PCP Internal Medicine; Visit Provider Urology
PROC: 0TJB8ZZ Inspection of Bladder, Via Natural or Artificial Opening Endoscopic (ICD-10-PCS; CPT 52000; principal; 2024-09-28 14:40)
DX: N35.811 Other urethral stricture, male, meatal (principal); E29.1 Testicular hypofunction; Z90.79 Acquired absence of other genital organ(s); N48.1 Balanitis; R79.89 Other specified abnormal findings of blood chemistry; J84.9 Interstitial pulmonary disease, unspecified; E78.2 Mixed hyperlipidemia; G47.33 Obstructive sleep apnea (adult) (pediatric); R06.83 Snoring; M26.19 Other specified anomalies of jaw-cranial base relationship; E11.9 Type 2 diabetes mellitus without complications; Z87.442 Personal history of urinary calculi; Z79.51 Long term (current) use of inhaled steroids; Z79.84 Long term (current) use of oral hypoglycemic drugs; Z79.899 Other long term (current) drug therapy; Z88.0 Allergy status to penicillin; Z88.2 Allergy status to sulfonamides; Z88.5 Allergy status to narcotic agent; Z88.6 Allergy status to analgesic agent; Z91.041 Radiographic dye allergy status; Z98.890 Other specified postprocedural states; Z72.0 Tobacco use
CPT/HCPCS: 52281; 82947; 87086; J0744; J1100; J2003; J2405; J2704; J3010

== ENCOUNTER → 2024-09-28 12:58 | Outpatient (BNV) | payer OTHER, SELFPAY | PROVIDERS: PCP Internal Medicine; Visit Provider Urology | DX: N35.911 Unspecified urethral stricture, male, meatal (principal) | CPT/HCPCS: 52281 ==

== ENCOUNTER 2024-10-22 15:49 | Outpatient (AMB) | payer OTHER, SELFPAY ==
--- OUTSIDE RECORDS SUMMARY | 2024-10-22 15:52 | XMS_ITS | Clinical Summary ---
Author Organization [employer] Address [address] [facility] [address] 7t [place] [address] Care Team Providers Care Personal Driver Name Role Phone Unavailable Primary Care Provider [...] Panel 1960 SDOH Screening 1960 Sigmoidoscopy 1960 Disability Screening 1960 Alcohol/Substance Use Screening 1972 Tobacco Screening 1972 Hepatitis C Screening 1978 DTaP/Tdap/Td Vaccines (1 - Tdap) 12/07/1979 Pneumococcal Vaccine: 50+ Years (1 of 1 - PCV) 2010 Zoster Vaccines (1 of 2) 2010 COVID-19 Vaccine (4 - season) 2023 06/28/2021, 05/23/2020, 04/25/2020 Influenza Vaccine (#1) 2024 3, 12/14/2020, 02/03/2020, Additional history exists RSV [...] patient's age to complete this topic Meningococcal B Vaccine Aged Out No l onger eligible based on patient's age to complete this topic Meningococcal Vaccine Aged Out No star jasen eligible based on patient's age to complete this topic RSV under 20 months Aged Out No longe r eligible based on patient's age to complete this topic Rotavirus Vaccines Aged Out No longer eligible based on patient's age to complete this topic Insurance [facility] STANDARD
--- OUTSIDE RECORDS SUMMARY | 2024-10-22 15:52 | XMS_ITS | Patient Health Record ---
Author Organization [facility] Address [address] [place] [address] Care Team Providers Care Packing Machine Feeder Name Role Phone Nel Amos MDh Primary Care Provider Unava Onesimo Dick Unavailable [phone] Allergies Allergen (clinical drug ingredient) Drug/Non Drug [...] Problem Status W/U Status Risk Notes Problem [id number] Encounter for screening for malignant neoplasm of colon (Z12.11) Active confirmed Problem 01855240 Rectal pain (K62.89) Active confirmed Problem Diverticulosis of sigmoid colon (953424577) Diverticulosis of sigmoid colon (K57.30) Active confirmed Problem 315881016 Abdominal pain, suprapubic (R10.2) Active confirmed Encounters Encounter Location Date Provider Diagnosis [facility] [address] [place] [address] 12/03/2023 Onesimo Nogueira Plan Of Treatment Future Test Test Name Order Date COLONOSCOPY 11/22/2020 Insurance Providers Payer Name Payer Address Payer Phone Subscriber Number Group Number Insured Name Patient Relationship to Insured Coverage Start Date Coverage End Date [facility] [address] [address] [place], [place] [id number] NELLI CERNA Self - patient is the insured [place] [address] [place] [address] [id number] NELLI CERNA Self - patient is the insured Medical (General) History Medical History History ICD Code Colonoscopy 04-11-2010--[place] except for hyperplastic polyps, diverticulosis, and internal and external hemorrhoids Hearing loss Arthirits Anxiety Hyperlipidemia NIDDM Allergies Vitamin D deficiency Denies PR,CVA,Lung disease,renal disease Low Testosterone levels IBS Surgical History Surgery Date(Month/Year) Undescended testicle Cholecystectomy
--- OUTSIDE RECORDS SUMMARY | 2024-10-22 15:52 | XMS_ITS | Encounter Summary ---
Author Organization [employer] Address [address] [place] [address] Care Team Providers Care Photolithographer Name Role Phone Unavailable Primary Care Provider [...]
--- NOTE | 2024-10-22 16:08 | AM.OFFVISNUR ---
Intake Visit Reasons: testosterone injection Allergies Iodinated Contrast Media (IV Dye, Iodine Containing) Allergy (Severe, Verified 09/28/24 13:25) ANAPHYLAXIS aspirin (Aspirin) Allergy (Mild, Verified 09/28/24 13:25) ITCHING ibuprofen (Ibuprofen) Allergy (Mild, Verified 09/28/24 13:25) NAUSEA Penicillins Allergy (Mild, Verified 09/28/24 13:25) ITCHING/SWELLING Gadolinium-Containing Contrast Medi (GADOLINIUM-CONTAINING CONTRAST) Allergy (Unknown, Verified 09/28/24 13:25) UNKNOWN iodine (IODINE) Allergy (Unknown, Verified 09/28/24 13:25) UNKNOWN morphine (MORPHINE) Allergy (Unknown, Verified 09/28/24 13:25) TACHYCARDIA oxycodone (From PERCOCET) Allergy (Unknown, Verified 09/28/24 13:25) N/V,H/A Sulfa (Sulfonamide Antibiotics) (SULFA (SULFONAMIDE ANTIBIOTICS)) Allergy (Unknown, Verified 09/28/24 13:25) UNKNOWN Office Meds testosterone cypionate 200 mg/mL intramuscular kit Performing Provider: Madi Amos MD [facility] Administered by: Hortencia Og LPN on 10/22/24 16:11 Dose Route Admin Location Dispensed Lot Number Expiration Date [facility] Collator 200 mg IM right buttock 1 ea [id number] 01/23/27 6871-9947-52 [employer] Total Dispensed Waste 1 ea 0 % Assessment & Plan Assessment & Plan Orders: Orders AMB Testosterone Injection Patient Supplied N/C Today R79.89 - Other specified abnormal findings of blood chemistry Coding
== END 2024-10-22 16:06 | disposition home or self-care (01) ==
LOC: HO.HMCH 15:50
PROVIDERS: PCP Internal Medicine; Visit Provider Internal Medicine
DX: R79.89 Other specified abnormal findings of blood chemistry (principal)

== ENCOUNTER → 2024-10-22 15:49 | Outpatient (BNVA) | payer OTHER, SELFPAY | PROVIDERS: PCP Internal Medicine; Visit Provider Internal Medicine | DX: R79.89 Other specified abnormal findings of blood chemistry (principal) | CPT/HCPCS: 96372 ==

== ENCOUNTER 2024-11-12 11:06 | Outpatient (AMB) | payer OTHER, SELFPAY ==
--- NOTE | 2024-11-12 11:28 | MHC.OFFVIS ---
Intake Visit Reasons: Urethral dilation follow up Intake Note: Patient presents today for urethral dilation follow up Urology Medication:Testosterone Blood Thinner:none Antibiotic Allergies:PCN Allergies Iodinated Contrast Media (IV Dye, Iodine Containing) Allergy (Severe, Verified 11/12/24 11:29) ANAPHYLAXIS aspirin (Aspirin) Allergy (Mild, Verified 11/12/24 11:29) ITCHING ibuprofen (Ibuprofen) Allergy (Mild, Verified 11/12/24 11:29) NAUSEA Penicillins Allergy (Mild, Verified 11/12/24 11:29) ITCHING/SWELLING Gadolinium-Containing Contrast Medi (GADOLINIUM-CONTAINING CONTRAST) Allergy (Unknown, Verified 11/12/24 11:29) UNKNOWN iodine (IODINE) Allergy (Unknown, Verified 11/12/24 11:29) UNKNOWN morphine (MORPHINE) Allergy (Unknown, Verified 11/12/24 11:29) TACHYCARDIA oxycodone (From PERCOCET) Allergy (Unknown, Verified 11/12/24 11:29) N/V,H/A Sulfa (Sulfonamide Antibiotics) (SULFA (SULFONAMIDE ANTIBIOTICS)) Allergy (Unknown, Verified 11/12/24 11:29) UNKNOWN Medication List - Last Reconciled 11/14/24 by Mony Schmitt MD albuterol sulfate 90 mcg/actuation (Ventolin HFA) 2 puffs PO Q4-6H PRN blood sugar diagnostic (FreeStyle Lite Strips) USE LAN LO INDICADO DOS VECES AL MARTÍN blood-glucose meter As directed twice a day blood-glucose meter (FreeStyle Lite Meter kit) As directed cetirizine 10 mg PO DAILY PRN 90 days cholecalciferol (vitamin D3) 25 mcg PO DAILY 90 days clonazepam 1 mg PO BID PRN 30 days clotrimazole-betamethasone 1-0.05 % 1 appl topical BID [diabetic boots As directed] [DIABETIC SHOES As directed] doxycycline hyclate 100 mg PO BID 3 days fluticasone propionate 50 mcg/actuation 1 spray intranasal DAILY lancets (FreeStyle Lancets) As directed-CHECK BLOOD SUGAR TWICE A DAY - Dx: E11.9 loratadine 10 mg PO DAILY PRN 90 days magnesium oxide 400 mg PO BEDTIME 90 days metformin 500 mg PO BID 3 months mometasone 0.1% 1 appl topical DAILY PRN olopatadine 0.1% (Pataday Twice Daily Relief) 1 drp ophthalmic (eye) BID PRN OneTouch Ultra2 Meter (blood-glucose meter) As directed once a day NS phenazopyridine (Pyridium) 100 mg PO Q8H PRN sertraline 50 mg PO DAILY 30 days terbinafine HCl 1% (Antifungal (terbinafine)) 1 appl topical BID 14 days testosterone cypionate 200 mg IM .qo week testosterone cypionate 200 mg IM Q4W 28 days HPI Comments Details: 11/12/2024--Gopi is status post dilation of fossa navicularis. procedure was performed on 09/28/2024 urinalysis today is negative History of Present Illness The patient is a 63-year-old male presenting with follow-up on the status post dilation of fossa navicularis and prostate health monitoring. The patient underwent a dilation of fossa navicularis on 09/28/24, and the procedure was successful with no immediate complications reported. Post-procedure, the patient reported improved urination, although there was initial discomfort during the first two weeks of dilation exercises. The patient's spouse assisted with the dilation exercises but ceased due to discomfort and concern about causing harm. The patient is also on testosterone replacement therapy, managed by his primary care physician, which is relevant to his overall health management. Regarding prostate health, the patient has a family history of prostate cancer, with his father having succumbed to the disease. The patient has not had a recent PSA test, prompting the decision to order one for monitoring purposes. Results - Urinalysis: Negative Plan 1. Status Post Dilation Of Vasonevicularis - Continue monitoring the surgical site for any signs of complications. - Encourage continuation of dilation exercises as tolerated to prevent closure. 2. Prostate Health Monitoring - Order PSA test to assess prostate health. - Schedule a prostate ultrasound to evaluate prostate size. 09/24/24 History of Present Illness - The patient is a 63-year-old male presenting with urethral stricture and low testosterone levels. - The patient has been receiving testosterone injections due to low testosterone levels. 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 - The remaining testicle is small, supported by testosterone injections. - The patient is experiencing a urethral stricture with a progressively closing urethral meatus over the past two to three months. - Topical creams previously used were ineffective in managing the condition. Plan - Schedule urethral dilation and cystoscopy as an outpatient procedure to address the urethral stricture. - Prescribe Lotrisone cream for temporary relief of urethral stricture symptoms until the procedure is performed. [facility] Medical History Mixed hyperlipidemia Choking due to phlegm LEIA (obstructive sleep apnea) Snoring Retrognathia Somnolence, daytime ILD (interstitial lung disease) Abnormal chest xray Chest pain Hx of flexible sigmoidoscopy IBS (irritable bowel syndrome) Arthritis Cigar smoker Anxiety Vitamin D deficiency Renal calculi Allergic rhinitis Diabetes mellitus Right hip pain Right shoulder pain Hypotestosteronism Swelling of left hand Left hand pain Surgical History Hx of cystoscopy Hx laparoscopic cholecystectomy History of testicular surgery History of colonoscopy History of lithotripsy Family History Father Prostate cancer Mother Hypertension Hypercholesterolemia Brother Hypertension Diabetes Other Hypotestosteronism Social History Housing: Apartment Are you a primary health care recruiter to a significant other at home: No Do you presently have visiting nurse or other home services: No Alcohol intake: never Patient Tobacco Use Status: Former Tobacco user Tobacco use type: Cigar Cigarettes Per Day: 3 Years Smoked: pt states quit 01/2022 e-Cigarette/Vaping Use: Never Used Second Hand Smoke Exposure: Yes Advance Directives Date on File: 11/07/14 service: No Current occupational status: disabled Cognitive needs: No Hearing needs: No Vision needs: Yes Review of Systems Const All systems reviewed & are unremarkable except as noted in HPI and below Reports no additional complaints Eyes Reports no additional complaints ENT Reports no additional complaints Card Reports no additional complaints Resp Reports no additional complaints GI Reports no additional complaints Reports as per HPI Musc Reports no additional complaints Skin/Breast Reports system reviewed and no additional complaints, except as documented Neuro Reports no additional complaints Psych Reports no additional complaints Endo Reports no additional complaints Andres/Lymph Reports no additional complaints Aller/Immun Reports no additional complaints Results AMB Urinalysis, Automated UA Leukoctes 0 Lesley/uL Last Edit by April East on 11/12/24 15:24 UA Nitrite Negative Last Edit by April Hanz on 11/12/24 15:24 UA Urobilinogen 3.5 mg/dL Last Edit by April Lutiz on 11/12/24 15:24 UA Protein 0 mg/dL Last Edit by April Lutiz on 11/12/24 15:24 UA pH 5.5 Last Edit by April Lutiz on 11/12/24 15:24 UA Blood 0 Galen/uL Last Edit by April East on 11/12/24 15:24 UA Specific [place] 1.015 Last Edit by April East on 11/12/24 15:24 UA Ketone Negative Last Edit by April Lutiz on 11/12/24 15:24 UA Bilirubin 0 mg/dL Last Edit by April Lutiz on 11/12/24 15:24 UA Glucose 0 mg/dL Last Edit by April Lutiz on 11/12/24 15:24 Results Reviewed Results Reviewed: Laboratory Last Values Urine pH (Auto) 5.5 11/12/24 11:54 Specific [place] (Auto) 1.015 11/12/24 11:54 Urine Protein (Auto) 0 mg/dL 11/12/24 11:54 Glucose (UA)(Auto) 0 mg/dL 11/12/24 11:54 Urine Ketones (Auto) Negative 11/12/24 11:54 Urine Blood (Auto) 0 Galen/uL 11/12/24 11:54 Urine Nitrite (Auto) Negative 11/12/24 11:54 Urine Bilirubin (Auto) 0 mg/dL 11/12/24 11:54 Urine Urobilinogen (Auto) 3.5 mg/dL 11/12/24 11:54 Leukocyte Esterase (Auto) 0 Lesley/uL 11/12/24 11:54 Assessment & Plan Assessment & Plan (1) Screening PSA (prostate specific antigen): Code(s): Z12.5 - Encounter for screening for malignant neoplasm of prostate Category: Medical (2) Low serum testosterone level: Code(s): R79.89 - Other specified abnormal findings of blood chemistry Category: Medical (3) Urethral meatal stenosis: Code(s): N35.919 - Unspecified urethral stricture, male, unspecified site Category: Medical Plan Plan 1. Status Post Dilation Of Vasonevicularis - Continue monitoring the surgical site for any signs of complications. - Encourage continuation of dilation exercises as tolerated to prevent closure. 2. Prostate Health Monitoring - Order PSA test to assess prostate health. - Schedule a prostate ultrasound to evaluate prostate size. Orders: Orders AMB Urinalysis Automated 11/12/24 N35.919 - Unspecified urethral stricture, male, unspecified site, N47.1 - Phimosis PSA,Total (Free>4and<10) 11/12/24 Z12.5 - Encounter for screening for malignant neoplasm of prostate Scribe Plan - Not visible on output: Patient was informed and verbally consented to the use of an ambient scribe for clinic note documentation during this visit. Coding Level of Care Code Est Pt Level 3 (57063) Complex EM visit Add On G2211 Diagnoses Screening PSA (prostate specific antigen) Z12.5 Low serum testosterone level R79.89 Urethral meatal stenosis N35.919
--- OUTSIDE RECORDS SUMMARY | 2024-11-12 11:45 | XMS_ITS | Clinical Summary ---
Author Organization [employer] Address [address] [facility] [address]t [place] [address] Care Team Providers Care Litigation Secretary Name Role Phone Unavailable Primary Care Provider [...] 2) 2010 COVID-19 Vaccine (4 - season) 2024 06/28/2021, 05/23/2020, 04/25/2020 Influenza Vaccine (#1) 2024 [...] patient's age to complete this topic Insurance [facility] STANDARD
--- OUTSIDE RECORDS SUMMARY | 2024-11-12 11:45 | XMS_ITS | Encounter Summary ---
Author Organization [employer] Address [address] [place] [address] Care Team Providers Care Utility Worker Driver Name Role Phone Unavailable Primary Care [...]
== END 2024-11-12 12:43 | disposition home or self-care (01) ==
LOC: HO.HUSH 11:07
PROVIDERS: PCP Internal Medicine; Visit Provider Urology
DX: N35.919 Unspecified urethral stricture, male, unspecified site (principal); N47.1 Phimosis
CPT/HCPCS: 99213

== ENCOUNTER → 2024-11-12 11:06 | Outpatient (BNVA) | payer OTHER, SELFPAY | PROVIDERS: PCP Internal Medicine; Visit Provider Urology | DX: N47.1 Phimosis (principal); N35.919 Unspecified urethral stricture, male, unspecified site; R79.89 Other specified abnormal findings of blood chemistry | CPT/HCPCS: 81003; 99212 ==

== ENCOUNTER 2024-11-19 15:47 | Outpatient (AMB) | payer OTHER, SELFPAY ==
--- OUTSIDE RECORDS SUMMARY | 2024-11-19 16:06 | XMS_ITS | Clinical Summary ---
Author Organization [employer] Address [address] [facility] [address]t [place] [address] Care Team Providers Care State Wildlife Officer Name Role Phone Unavailable Primary Care Provider [...] this topic Insurance [facility] STANDARD
--- OUTSIDE RECORDS SUMMARY | 2024-11-19 16:06 | XMS_ITS | Encounter Summary ---
Author Organization [employer] Address [address] [place] [address] Care Team Providers Care Java Tech Name Role Phone Unavailable Primary Care Provider [...]
--- OUTSIDE RECORDS SUMMARY | 2024-11-19 16:06 | XMS_ITS | Patient Health Record ---
Author Organization [facility] Address [address] [place] [address] Care Team Providers Care Foamite Mixer Name Role Phone Rainer Amos MDneth Primary Care Provider Unava Onesimo Dick Unavailable [phone] Allergies Allergen (clinical drug ingredient) Drug/Non Drug [...] Problem Status W/U Status Risk Notes Problem 629019890 Encounter for screening for malignant neoplasm of colon (Z12.11) Active confirmed Problem 16761003 Rectal pain (K62.89) Active confirmed Problem Diverticulosis of sigmoid colon (594461754) Diverticulosis of sigmoid colon (K57.30) Active confirmed Problem 338492962 Abdominal pain, suprapubic (R10.2) Active confirmed Encounters Encounter Location Date Provider Diagnosis [facility] [address] [place] [address] 12/03/2023 Onesimo Nogueira Plan Of Treatment Future Test Test Name Order Date COLONOSCOPY 11/22/2020 Insurance Providers Payer Name Payer Address Payer Phone Subscriber Number Group Number Insured Name Patient Relationship to Insured Coverage Start Date Coverage End Date [facility] [address] [address] [place], [place] [id number] NELLI CERNA Self - patient is the insured [place] [address] [place] [address] [id number] NELLI CERNA Self - patient is the insured Medical (General) History Medical History History ICD Code Colonoscopy 04-11-2010--[place] except for hyperplastic polyps, diverticulosis, and internal and external hemorrhoids Hearing loss Arthirits Anxiety Hyperlipidemia NIDDM Allergies Vitamin D deficiency Denies NE,CVA,Lung disease,renal disease Low Testosterone levels IBS Surgical History Surgery Date(Month/Year) Undescended testicle Cholecystectomy
--- NOTE | 2024-11-19 16:10 | AM.OFFVISNUR ---
Intake Visit Reasons: shot Allergies Iodinated Contrast Media (IV Dye, Iodine Containing) Allergy (Severe, Verified 11/12/24 11:29) ANAPHYLAXIS aspirin (Aspirin) Allergy (Mild, Verified 11/12/24 11:29) ITCHING ibuprofen (Ibuprofen) Allergy (Mild, Verified 11/12/24 11:29) NAUSEA Penicillins Allergy (Mild, Verified 11/12/24 11:29) ITCHING/SWELLING Gadolinium-Containing Contrast Medi (GADOLINIUM-CONTAINING CONTRAST) Allergy (Unknown, Verified 11/12/24 11:29) UNKNOWN iodine (IODINE) Allergy (Unknown, Verified 11/12/24 11:29) UNKNOWN morphine (MORPHINE) Allergy (Unknown, Verified 11/12/24 11:29) TACHYCARDIA oxycodone (From PERCOCET) Allergy (Unknown, Verified 11/12/24 11:29) N/V,H/A Sulfa (Sulfonamide Antibiotics) (SULFA (SULFONAMIDE ANTIBIOTICS)) Allergy (Unknown, Verified 11/12/24 11:29) UNKNOWN Office Meds testosterone cypionate 200 mg/mL intramuscular kit Performing Provider: Madi Amos MD [facility] Administered by: Hortencia Og LPN on 11/19/24 16:10 Dose Route Admin Location Dispensed Lot Number Expiration Date [facility] [employer] 200 mg IM 1 ea [id number] 01/23/27 3764-3827-80 [employer] Total Dispensed Waste 1 ea 0 % Assessment & Plan Assessment & Plan Orders: Orders AMB Testosterone Injection Patient Supplied N/C Today R79.89 - Other specified abnormal findings of blood chemistry Coding
== END 2024-11-19 16:06 | disposition home or self-care (01) ==
LOC: HO.HMCH 15:47
PROVIDERS: PCP Internal Medicine; Visit Provider Internal Medicine
DX: R79.89 Other specified abnormal findings of blood chemistry (principal)

== ENCOUNTER → 2024-11-19 15:47 | Outpatient (BNVA) | payer OTHER, SELFPAY | PROVIDERS: PCP Internal Medicine; Visit Provider Internal Medicine | DX: R79.89 Other specified abnormal findings of blood chemistry (principal) | CPT/HCPCS: 96372 ==

== ENCOUNTER 2024-11-23 13:19 | Outpatient (REF) | payer OTHER, SELFPAY ==
[2024-11-23 13:45] LABS: MANUAL DIFF FLAG NO
[2024-11-23 14:16] LABS: Hematocrit 45.0 % (42.0-52.0); Hemoglobin 15.6 g/dl (14.0-18.0); Imm Gran Abs Auto 0.04 X10*3/uL (0.00-0.03); Imm Gran Pct Auto 0.5 % (0.0-0.4); Lymphocytes Absolute Auto 2.2 X10*3/uL (1.2-4.9); Mean Corpuscular HGB Conc 34.7 g/dl (31.0-36.0); Mean Corpuscular Hemoglobin 29.1 pg (27.0-33.0); Mean Corpuscular Volume 84.0 fL (80.0-98.0); NRBC Abs Auto 0.000 X10*3/uL (0.0-0.012); NRBC Pct Auto 0.0 /100WBC (0.0-0.2); Platelet Count 277 X10*3/uL (160-400); Red Blood Count 5.36 X10*6/uL (4.60-5.80); White Blood Count 8.5 X10*3/uL (4.8-10.8)
[2024-11-23 14:35] LABS: Appearance Urine Clear; Glucose Urine UA Negative (Negative); PH 5.5 (5.0-9.0); Specific Gravity - Urine 1.015 (1.005-1.025); UMIC TRIGGER UACC YES
--- OUTSIDE RECORDS SUMMARY | 2024-11-23 14:36 | XMS_ITS | Encounter Summary ---
Author Organization [employer] Address [address] [place] [address] Care Team Providers Care Shoes Salesperson Name Role Phone Unavailable Primary Care Provider [...]
--- OUTSIDE RECORDS SUMMARY | 2024-11-23 14:36 | XMS_ITS | Patient Health Record ---
Author Organization [facility] Address [address] [place] [address] Care Team Providers Care Biblical Languages Professor Name Role Phone Rainer Amos MDneth Primary Care Provider Unava Onesimo Dick Unavailable [phone] Allergies Allergen (clinical drug ingredient) Drug/Non Drug [...] Problem Status W/U Status Risk Notes Problem 881112299 Encounter for screening for malignant neoplasm of colon (Z12.11) Active confirmed Problem 69017584 Rectal pain (K62.89) Active confirmed Problem Diverticulosis of sigmoid colon (800949356) Diverticulosis of sigmoid colon (K57.30) Active confirmed Problem 975770178 Abdominal pain, suprapubic (R10.2) Active confirmed Encounters Encounter Location Date Provider Diagnosis [facility] [address] [place] [address] 12/03/2023 Onesimo Nogueira Plan Of Treatment Future Test Test Name Order Date COLONOSCOPY 11/22/2020 Insurance Providers Payer Name Payer Address Payer Phone Subscriber Number Group Number Insured Name Patient Relationship to Insured Coverage Start Date Coverage End Date [facility] [address] [address] [place], [place] [id number] NELLI CERNA Self - patient is the insured [place] [address] [place] [address] [id number] NELLI CERNA Self - patient is the insured Medical (General) History Medical History History ICD Code Colonoscopy 04-11-2010--[place] except for hyperplastic polyps, diverticulosis, and internal and external hemorrhoids Hearing loss Arthirits Anxiety Hyperlipidemia NIDDM Allergies Vitamin D deficiency Denies [place],CVA,Lung disease,renal disease Low Testosterone levels IBS Surgical History Surgery Date(Month/Year) Undescended testicle Cholecystectomy
--- OUTSIDE RECORDS SUMMARY | 2024-11-23 14:36 | XMS_ITS | Clinical Summary ---
Author Organization [employer] Address [address] [facility] [address] [place] [address] Care Team Providers Care Grants And Contracts Assistant Name Role Phone Unavailable Primary Care Provider [...]
[2024-11-23 15:12] LABS: Alanine Aminotransferase 51 U/L (0-40); Albumin Level 4.3 g/dL (3.5-5.0); Alkaline Phosphatase 36 U/L (39-117); Anion Gap 11 (12-20); Aspartate Amino Transferase 33 U/L (5-37); Blood Urea Nitrogen 14 mg/dL (9-16); Calcium 9.5 mg/dL (8.4-10.2); Carbon Dioxide 28 mmol/L (22-29); Chloride 105 mmol/L (96-108); Cholesterol 176 mg/dL (<200); Estimated Glomerular Filt Rate > 60; Potassium 4.0 mmol/L (3.3-5.1); Sodium 140 mmol/L (135-145); Total Protein 7.4 g/dL (6.5-8.0); Triglycerides 157 mg/dL (<150)
[2024-11-23 15:27] LABS: HDL Cholesterol 34 mg/dL (>40)
[2024-11-23 15:39] LABS: Microalbum/Creatinine Ratio Ur 3.5 ug/mg cr (<30)
[2024-11-23 15:45] LABS: PSA,Total (Free>4and<10) 0.31 ng/mL (0.00-4.00)
[2024-11-23 16:10] LABS: Folate 15.5 ng/mL (> or = 4.0); Vitamin B12 259 pg/mL (200-900)
== END 2024-11-23 13:20 | disposition home or self-care (01) ==
LOC: HO.LAB 13:19
PROVIDERS: PCP Internal Medicine; Visit Provider Urology
DX: E55.9 Vitamin D deficiency, unspecified (principal); D64.9 Anemia, unspecified; E78.00 Pure hypercholesterolemia, unspecified; E11.9 Type 2 diabetes mellitus without complications; E53.8 Deficiency of other specified B group vitamins; R30.0 Dysuria; Z12.5 Encounter for screening for malignant neoplasm of prostate
CPT/HCPCS: 36415; 80053; 80061; 81001; 82043; 82306; 82570; 82607; 82746; 83036; 84153; 84443; 85025

== ENCOUNTER 2025-01-07 15:37 | Outpatient (AMB) | payer OTHER, SELFPAY ==
[2025-01-07 15:43] VITALS: BP 120/48; PULSE 103; RESP 18; O2SAT 96; BMI 24.8
--- NOTE | 2025-01-07 15:43 | A.OFFPC_ITS ---
Vital Signs 01/07/25 15:43 Height 5 ft 6 in Weight 153 lb 6 oz BMI 24.8 BP 120/48 L Blood Pressure Location Lt brachial Position Sitting Respiration 18 Pulse 103 H Pulse Source Pulse Oximeter Temp Source Temporal Artery Scan Pulse Oximetry (%) 96 Oxygen Delivery Method Room Air Intake Visit Reasons: ? 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 Accompanied by: Self / Same As Patient Allergies Iodinated Contrast Media (IV Dye, Iodine Containing) Allergy (Severe, Verified 01/07/25 16:32) ANAPHYLAXIS aspirin (Aspirin) Allergy (Mild, Verified 01/07/25 16:32) ITCHING ibuprofen (Ibuprofen) Allergy (Mild, Verified 01/07/25 16:32) NAUSEA Penicillins Allergy (Mild, Verified 01/07/25 16:32) ITCHING/SWELLING Gadolinium-Containing Contrast Medi (GADOLINIUM-CONTAINING CONTRAST) Allergy (Unknown, Verified 01/07/25 16:32) UNKNOWN iodine (IODINE) Allergy (Unknown, Verified 01/07/25 16:32) UNKNOWN morphine (MORPHINE) Allergy (Unknown, Verified 01/07/25 16:32) TACHYCARDIA oxycodone (From PERCOCET) Allergy (Unknown, Verified 01/07/25 16:32) N/V,H/A Sulfa (Sulfonamide Antibiotics) (SULFA (SULFONAMIDE ANTIBIOTICS)) Allergy (Unknown, Verified 01/07/25 16:32) UNKNOWN Medication List - Last Reconciled 01/07/25 by TOMAS Bhatia albuterol sulfate 90 mcg/actuation (Ventolin HFA) 2 puffs PO Q4-6H PRN blood sugar diagnostic (FreeStyle Lite Strips) USE LAN LO INDICADO DOS VECES AL MARTÍN blood-glucose meter As directed twice a day blood-glucose meter (FreeStyle Lite Meter kit) As directed cetirizine 10 mg PO DAILY PRN 90 days cholecalciferol (vitamin D3) 25 mcg PO DAILY 90 days clonazepam 1 mg PO BID PRN 30 days clotrimazole-betamethasone 1-0.05 % 1 appl topical BID [diabetic boots As directed] [DIABETIC SHOES As directed] doxycycline hyclate 100 mg PO BID 3 days fluticasone propionate 50 mcg/actuation 1 spray intranasal DAILY lancets (FreeStyle Lancets) As directed-CHECK BLOOD SUGAR TWICE A DAY - Dx: E11.9 loratadine 10 mg PO DAILY PRN 90 days magnesium oxide 400 mg PO BEDTIME 90 days metformin 500 mg PO BID 3 months mometasone 0.1% 1 appl topical DAILY PRN olopatadine 0.1% (Pataday Twice Daily Relief) 1 drp ophthalmic (eye) BID PRN OneTouch Ultra2 Meter (blood-glucose meter) As directed once a day NS phenazopyridine (Pyridium) 100 mg PO Q8H PRN sertraline 50 mg PO DAILY 30 days terbinafine HCl 1% (Antifungal (terbinafine)) 1 appl topical BID 14 days testosterone cypionate 200 mg IM .qo week testosterone cypionate 200 mg IM Q4W 28 days Tobacco use date assessed: 01/07/25 Fall risk assessment: No Falls in past year Last assessed Fall Risk: 01/07/25 Dental Screening Dental Screen Date: 01/07/25 Did you have a dental visit in the last 12 months?: No Did you have a dental problem in the last 6 months where you did not have access to dental care?: No Was dental information given to patient?: Patient has dentist [facility] Medical History Mixed hyperlipidemia Choking due to phlegm LEIA (obstructive sleep apnea) Snoring Retrognathia Somnolence, daytime ILD (interstitial lung disease) Abnormal chest xray Chest pain Hx of flexible sigmoidoscopy IBS (irritable bowel syndrome) Arthritis Cigar smoker Anxiety Vitamin D deficiency Renal calculi Allergic rhinitis Diabetes mellitus Right hip pain Right shoulder pain Hypotestosteronism Swelling of left hand Left hand pain Surgical History Hx of cystoscopy Hx laparoscopic cholecystectomy History of testicular surgery History of colonoscopy History of lithotripsy Family History Father Prostate cancer Mother Hypertension Hypercholesterolemia Brother Hypertension Diabetes Other Hypotestosteronism Social History Housing: Apartment Are you a primary wound care technician to a significant other at home: No Do you presently have visiting nurse or other home services: No Alcohol intake: never Patient Tobacco Use Status: Former Tobacco user Tobacco use type: Cigar Cigarettes Per Day: 3 Years Smoked: pt states quit 01/2022 e-Cigarette/Vaping Use: Never Used Second Hand Smoke Exposure: Yes Advance Directives Date on File: 11/07/14 service: No Current occupational status: disabled Cognitive needs: No Hearing needs: No Vision needs: Yes Questionnaire Thrive Questionnaire Date Thrive assessed: 08/20/24 I am a: Patient What is your living situation today?: I have a steady place to live Within the past 12 months, did the food you bought not last and you didn't have the money to get more?: Sometimes True Within the past 12 months, did you worry whether your food would run out before you got money to buy more?: Sometimes True Do you have trouble paying for medicines?: No Do you have trouble getting transportation to medical appointments?: No Do you have trouble paying your heating and electricity bill?: No Do you have trouble taking care of your child, family member or friend?: I choose not to answer this question Do you have trouble with day-to-day activities such as bathing, preparing meals, shopping, managing finances, etc.?: I choose not to answer this question Are you currently unemployed and looking for a job?: No Are you interested in more education?: No Please select the resources that you would like help with: None Currently or been in a relationship where the following occur: No concerns reported THRIVE Score: 2 MALIK-7 AMB Questionnaire MALIK-7 Date MALIK - 7 assessed: 08/20/24 Source: Developed by Drs. Onesimo Swenson, Juana Giordano, Spencer Swan and colleagues, with an educational cesar from [employer]. Physical exam (Primary Care) Vital Signs: Last Vital Signs Pulse 103 H 01/07/25 15:43 Resp 18 01/07/25 15:43 BP 120/48 L 01/07/25 15:43 Pulse Ox 96 01/07/25 15:43 Oxygen Delivery Method Room Air 01/07/25 15:43 BMI result Body Mass Index 24.8 Tobacco/Smoking Status: Tobacco use Status Tobacco use date assessed 01/07/25 01/07/25 15:46 Patient Tobacco Use Status Former Tobacco user 01/07/25 15:46 Tobacco use type Cigar 01/07/25 15:46 e-Cigarette/Vaping Use Never Used 01/07/25 15:46 Thrive Assessment: Date of Thrive Assessment Date Thrive assessed 08/20/24 01/07/25 15:46 Currently or been in a relationship where the following occur: No concerns reported Office Meds testosterone cypionate 200 mg/mL intramuscular kit Performing Provider: Madi Amos MD [place] [facility] [place] [facility] [place] [facility] Administered by: Hortencia Og LPN on 01/07/25 15:54 Dose Route Admin Location Dispensed Lot Number Expiration Date [facility] [employer] 200 mg IM left buttock 1 ea [id number] 03/25/27 0445-2513-52 [employer] Total Dispensed Waste 1 ea 0 % Coding Diagnoses Hypotestosteronism E34.9 Low serum testosterone level R79.89 Assessment & Plan Assessment & Plan (1) Hypotestosteronism: Code(s): E34.9 - Endocrine disorder, unspecified Category: Medical (2) Low serum testosterone level: Code(s): R79.89 - Other specified abnormal findings of blood chemistry Category: Medical Orders: Orders AMB Testosterone Injection Patient Supplied N/C Today Madi Amos MD E34.9 - Endocrine disorder, unspecified, R79.89 - Other specified abnormal findings of blood chemistry Medications: New doxycycline monohydrate 100 mg PO BID 20 caps 0RF 10 days TOMAS Bhatia clotrimazole 1% 1 appl topical BID 15 grams 0RF TOMAS Bhatia clotrimazole 1% 1 appl topical BID 15 grams 0RF 14 days TOMAS Bhatia
== END 2025-01-07 17:07 | disposition home or self-care (01) ==
LOC: HO.HMCH 15:38
PROVIDERS: PCP Internal Medicine
DX: E34.9 Endocrine disorder, unspecified (principal); R79.89 Other specified abnormal findings of blood chemistry

== ENCOUNTER → 2025-01-07 15:37 | Outpatient (BNVA) | payer OTHER, SELFPAY | PROVIDERS: PCP Internal Medicine | DX: E34.9 Endocrine disorder, unspecified (principal); R79.89 Other specified abnormal findings of blood chemistry; F41.9 Anxiety disorder, unspecified; L03.211 Cellulitis of face; L02.01 Cutaneous abscess of face | CPT/HCPCS: 96372; 99212 ==

== ENCOUNTER 2025-01-17 09:48 | Outpatient (REF) | payer OTHER, SELFPAY ==
[2025-01-17 11:10] LABS: Appearance Urine Clear; Glucose Urine UA Negative (Negative); PH 6.0 (5.0-9.0); Specific Gravity - Urine 1.015 (1.005-1.025)
--- OUTSIDE RECORDS SUMMARY | 2025-01-17 11:34 | XMS_ITS | Encounter Summary ---
Author Organization [employer] Address [address] [place] [address] Care Team Providers Care Dietetic Technician Registered Name Role Phone Unavailable Primary Care Provider [...]
--- OUTSIDE RECORDS SUMMARY | 2025-01-17 11:34 | XMS_ITS | Clinical Summary ---
Author Organization [employer] Address [address] [place] [address] Care Team Providers Care Branch Officer Name Role Phone Unavailable Primary Care [...] patient's age to complete this topic Insurance [facility] STANDARD
== END 2025-01-17 09:49 | disposition home or self-care (01) ==
LOC: HO.LAB 09:48
PROVIDERS: PCP Internal Medicine; Visit Provider Internal Medicine
DX: R30.0 Dysuria (principal)
CPT/HCPCS: 81003

== ENCOUNTER 2025-01-18 14:30 | Outpatient (AMB) | payer OTHER, SELFPAY ==
[2025-01-18 14:43] VITALS: BP 128/80; PULSE 106; O2SAT 96; BMI 25.0
--- NOTE | 2025-01-18 14:43 | MHC.PC.OV ---
Vital Signs 01/18/25 14:43 Height 5 ft 6 in Weight 155 lb BMI 25.0 BP 128/80 Blood Pressure Location Lt brachial Position Sitting Pulse 106 H Pulse Source Pulse Oximeter Pulse Oximetry (%) 96 Oxygen Delivery Method Room Air Intake Visit Reasons: follow up Optics Test Technician Required: No Accompanied by: Self / Same As Patient Allergies Iodinated Contrast Media (IV Dye, Iodine Containing) Allergy (Severe, Verified 01/18/25 15:19) ANAPHYLAXIS aspirin (Aspirin) Allergy (Mild, Verified 01/18/25 15:19) ITCHING ibuprofen (Ibuprofen) Allergy (Mild, Verified 01/18/25 15:19) NAUSEA Penicillins Allergy (Mild, Verified 01/18/25 15:19) ITCHING/SWELLING Gadolinium-Containing Contrast Medi (GADOLINIUM-CONTAINING CONTRAST) Allergy (Unknown, Verified 01/18/25 15:19) UNKNOWN iodine (IODINE) Allergy (Unknown, Verified 01/18/25 15:19) UNKNOWN morphine (MORPHINE) Allergy (Unknown, Verified 01/18/25 15:19) TACHYCARDIA oxycodone (From PERCOCET) Allergy (Unknown, Verified 01/18/25 15:19) N/V,H/A Sulfa (Sulfonamide Antibiotics) (SULFA (SULFONAMIDE ANTIBIOTICS)) Allergy (Unknown, Verified 01/18/25 15:19) UNKNOWN Medication List - Last Reconciled 01/18/25 by Madi Amos MD albuterol sulfate 90 mcg/actuation (Ventolin HFA) 2 puffs PO Q4-6H PRN blood sugar diagnostic (FreeStyle Lite Strips) USE LAN LO INDICADO DOS VECES AL MARTÍN blood-glucose meter As directed twice a day blood-glucose meter (FreeStyle Lite Meter kit) As directed cetirizine 10 mg PO DAILY PRN 90 days cholecalciferol (vitamin D3) 25 mcg PO DAILY 90 days clonazepam 1 mg PO BID PRN 30 days clotrimazole 1% 1 appl topical BID 14 days clotrimazole-betamethasone 1-0.05 % 1 appl topical BID [diabetic boots As directed] [DIABETIC SHOES As directed] fluticasone propionate 50 mcg/actuation 1 spray intranasal DAILY lancets (FreeStyle Lancets) As directed-CHECK BLOOD SUGAR TWICE A DAY - Dx: E11.9 loratadine 10 mg PO DAILY PRN 90 days magnesium oxide 400 mg PO BEDTIME 90 days metformin 500 mg PO BID 3 months mometasone 0.1% 1 appl topical DAILY PRN olopatadine 0.1% (Pataday Twice Daily Relief) 1 drp ophthalmic (eye) BID PRN OneTouch Ultra2 Meter (blood-glucose meter) As directed once a day NS phenazopyridine (Pyridium) 100 mg PO Q8H PRN sertraline 50 mg PO DAILY 30 days terbinafine HCl 1% (Antifungal (terbinafine)) 1 appl topical BID 14 days testosterone cypionate 200 mg IM .qo week testosterone cypionate 200 mg IM Q4W 28 days Tobacco use date assessed: 01/18/25 Fall risk assessment: No Falls in past year Last assessed Fall Risk: 01/18/25 Dental Screening Dental Screen Date: 01/18/25 Did you have a dental visit in the last 12 months?: No Did you have a dental problem in the last 6 months where you did not have access to dental care?: No Was dental information given to patient?: No HPI follow up HPI Details Patient comes in today for his follow up visit States that he feels okay He denies any headaches or dizziness Denies any chest pains, no increased shortness of breath No nausea/vomiting, no abdominal pain No change in bowel habits noted He continues to experience recurrent pain over his right hip area posteriorly and would like to know what he can do at this time to get this resolved X-rays of the hip done earlier this year came out normal We tried sending him for an MRI of the hip, per his request, a couple of months ago but the MRI was denied by his insurance company Needs his Metformin Rx refilled today He had his follow up labs done a couple of months ago - to discuss his results He would also like to get his flu shot today [facility] Medical History Mixed hyperlipidemia Choking due to phlegm LEIA (obstructive sleep apnea) Snoring Retrognathia Somnolence, daytime ILD (interstitial lung disease) Abnormal chest xray Chest pain Hx of flexible sigmoidoscopy IBS (irritable bowel syndrome) Arthritis Cigar smoker Anxiety Vitamin D deficiency Renal calculi Allergic rhinitis Diabetes mellitus Right hip pain Right shoulder pain Hypotestosteronism Swelling of left hand Left hand pain Surgical History Hx of cystoscopy Hx laparoscopic cholecystectomy History of testicular surgery History of colonoscopy History of lithotripsy Family History Father Prostate cancer Mother Hypertension Hypercholesterolemia Brother Hypertension Diabetes Other Hypotestosteronism Social History Housing: Apartment Are you a primary care partner to a significant other at home: No Do you presently have visiting nurse or other home services: No Alcohol intake: never Patient Tobacco Use Status: Former Tobacco user Tobacco use type: Cigar Cigarettes Per Day: 3 Years Smoked: pt states quit 01/2022 e-Cigarette/Vaping Use: Never Used Second Hand Smoke Exposure: Yes Advance Directives Date on File: 11/07/14 service: No Current occupational status: disabled Cognitive needs: No Hearing needs: No Vision needs: Yes Questionnaire PHQ-9 Over the last 2 weeks, how often have you been bothered by any of the following problems? 1. Little interest or pleasure in doing things: not at all 2. Feeling down, depressed, or hopeless: several days 3. Trouble falling or staying asleep, or sleeping too much: several days 4. Feeling tired or having little energy: several days 5. Poor appetite or overeating: not at all 6. Feeling bad about yourself - or that you are a failure or have let yourself or your family down: not at all 7. Trouble concentrating on things, such as reading the newspaper or watching television: not at all 8. Moving or speaking so slowly that other people could have noticed. Or the opposite - being so fidgety or restless that you have been moving around a lot more than usual: not at all 9. Thoughts that you would be better off or of hurting yourself in some way: not at all Total score: 3 Depression Screening Interpretation: Positive Depression Screening Follow-up: Existing condition and In treatment Depression Screening Done: Yes 43074 - PHQ-9 Billing: Yes Source: Developed by Drs. Onesimo Swenson, Juana Giordano, Spencer Swan and colleagues, with an educational cesar from [employer]. Thrive Questionnaire Date Thrive assessed: 01/18/25 I am a: Patient What is your living situation today?: I have a steady place to live Within the past 12 months, did the food you bought not last and you didn't have the money to get more?: Sometimes True Within the past 12 months, did you worry whether your food would run out before you got money to buy more?: Sometimes True Do you have trouble paying for medicines?: No Do you have trouble getting transportation to medical appointments?: No Do you have trouble paying your heating and electricity bill?: No Do you have trouble taking care of your child, family member or friend?: I choose not to answer this question Do you have trouble with day-to-day activities such as bathing, preparing meals, shopping, managing finances, etc.?: I choose not to answer this question Are you currently unemployed and looking for a job?: No Are you interested in more education?: No Please select the resources that you would like help with: None Currently or been in a relationship where the following occur: No concerns reported THRIVE Score: 2 AUDIT C Alcohol Use Questionnaire (AUDIT-C) 1. How often do you have a drink containing alcohol?: Never 3. How often do you have six or more drinks on one occasion?: Never Total Score: 0 Score Reviewed/Action Taken: Yes MALIK-7 AMB Questionnaire MALIK-7 Date MALIK - 7 assessed: 01/18/25 Feeling nervous, anxious, or on edge: 0 = Not at all Not being able to stop or control worryin = Not at all Worrying too much about different things: 0 = Not at all Trouble relaxin = Not at all Being so restless that it is hard to sit still: 0 = Not at all Becoming easily annoyed or irritable: 0 = Not at all Feeling afraid as if something awful might happen: 0 = Not at all Total MALIK-7 score (0-4 normal; 5-9 mild; 10-14 moderate; 15-21 severe): 0 Source: Developed by Drs. Onesimo Swenson, Juana Giordano, Spencer Swan and colleagues, with an educational cesar from [employer]. Review of Systems Const Denies chills, Reports fatigue, Denies fever(s) and Denies headache(s) ENT Denies dysphagia, Denies dizziness, Denies otalgia, Denies headache(s), Denies neck pain, Denies odynophagia and Denies sore throat Card Denies chest pain, Denies syncope, Denies palpitations and Denies dyspnea Resp Denies chest congestion, Denies cough and Denies dyspnea GI Denies abdominal pain, Denies constipation, Denies dysphagia, Denies heartburn, Denies diarrhea, Reports loose stools (at times (S/P cholecystectomy) ), Denies nausea, Denies odynophagia and Denies vomiting Denies difficulty urinating, Denies dysuria, Denies nocturia and Denies urinary frequency Musc Reports back pain (over the lower back), Reports arthralgias (increased pain over the right hip for the past few months) and Denies neck pain Skin/Breast Denies rash Neuro Denies dizziness, Denies syncope and Denies headache(s) Psych Reports anxiety Endo Reports fatigue and Denies palpitations Physical exam (Primary Care) Vital Signs: Last Vital Signs Pulse 106 H 01/18/25 14:43 BP 128/80 01/18/25 14:43 Pulse Ox 96 01/18/25 14:43 Oxygen Delivery Method Room Air 01/18/25 14:43 BMI result Body Mass Index 25.0 Tobacco/Smoking Status: Tobacco use Status Tobacco use date assessed 01/18/25 01/18/25 14:46 Patient Tobacco Use Status Former Tobacco user 01/18/25 14:46 Tobacco use type Cigar 01/18/25 14:46 e-Cigarette/Vaping Use Never Used 01/18/25 14:46 PHQ-9: PHQ-9 Score PHQ-9: Total score 3 01/18/25 15:26 Depression Screening Interpretation: Positive Depression Screening Follow-up: Existing condition and In treatment Thrive Assessment: Date of Thrive Assessment Date Thrive assessed 01/18/25 01/18/25 14:46 Currently or been in a relationship where the following occur: No concerns reported Const General: no acute distress and alert HENMT Ears: TM's normal bilaterally and EAC's normal Throat: Yes posterior oropharynx normal and Yes tonsils normal (no TP congestion) Neck Neck: Yes supple and No lymphadenopathy Thyroid: Thyroid normal Resp Auscultation: clear to auscultation bilaterally, no rales and no wheezes Cardio Rate: regular rate Rhythm: regular rhythm Heart sounds: no murmurs GI Palpation (GI): Soft to palpation and nontender Auscultation: normal bowel sounds General: Yes no CVA tenderness Back/Spine/Pelvis Back: no CVA tenderness Thoracic/Lumbar Spine: lumbar spinal tenderness (mild) Skin Rashes: no rashes Extrem General: Yes no clubbing, cyanosis or edema Right lower extremity: hip/thigh Details: tenderness Location: of the hip Location: posterolaterally Office Procedures Flu Questionnaire Does the patient have a severe egg allergy?: No Does the patient have severe life threatening allergies?: No Does the patient have a fever or illness today?: No Has the patient ever had Guillain-[place] Syndrome?: No Has the patient ever had any past reaction to a flu shot?: No Immunizations Fluarix [id number] (PF) 45 mcg (15 mcg x 3)/0.5 mL IM syringe Performing Provider: Madi Amos MD Per[facility] Administered by: Ngoc Ba CMA on 01/18/25 15:38 Dose Route Admin Location Dispensed Lot Number Expiration Date NDC Powder Operator 0.5 mL IM Left Deltoid 0.5 mL [id number] 08/23/25 [id number] [employer] VIS Given Date VIS Provided VIS Publication Date 01/18/25 Single Vaccine 24 Eligibility Eligibility Date Funding Source Not [facility] Eligible 01/18/25 Private Results Reviewed Results Reviewed: Laboratory Tests 11/23/24 11/23/24 01/17/25 01:36 13:44 09:52 WBC 8.5 Hgb 15.6 Hct 45.0 Plt Count 277 Sodium 140 Potassium 4.0 Creatinine 1.16 Estimated GFR > 60 Fasting Glucose 152 H Hemoglobin A1c % 6.2 H Calcium 9.5 ALT 51 H Alkaline Phosphatase 36 L Triglycerides 157 H Cholesterol 176 LDL Cholesterol, Calc 111 H HDL Cholesterol 34 L Total PSA 0.31 Vitamin B12 259 25-OH Vitamin D Total 64.3 TSH 2.60 Ur Specific [place] 1.015 Urine Protein Negative Urine Glucose (UA) Negative Urine Blood Negative Urine Nitrite Negative Ur Leukocyte Esterase Negative Microalb/Creat Ratio 3.5 Coding Level of Care Code Est Pt Level 4 (01211) Diagnoses Type 2 diabetes mellitus without complication, without long-term current use of insulin E11.9 Diabetes mellitus type: type 2 Diabetes mellitus exterminator helper termite insulin use: without longterm use Diabetes mellitus complication status: without complication Mixed hyperlipidemia E78.2 ILD (interstitial lung disease) J84.9 Allergic rhinitis, unspecified seasonality, unspecified trigger J30.9 Allergic rhinitis trigger: unspecified Allergic rhinitis seasonality: unspecified Hypotestosteronism E34.9 Vitamin D deficiency E55.9 Right hip pain M25.551 Renal calculi N20.0 Anxiety F41.9 Additional Codes PHQ-9 - 69264 - PHQ-9 Billing: Yes ([id number]) Assessment & Plan Assessment & Plan (1) Diabetes mellitus: Comment: taking metformin Code(s): E11.9 - Type 2 diabetes mellitus without complications Category: Medical Qualifiers: Diabetes mellitus type: type 2 Diabetes mellitus exterminator helper termite insulin use: without exterminator helper termite use Diabetes mellitus complication status: without complication Qualified Code(s): E11.9 - Type 2 diabetes mellitus without complications Plan: His HgbA1c was at 6.2% on his labs done a couple of months ago (was at 6.4% a few months ago) - goal is at least <7.0% but ideally <6.5% Reinforced diabetic diet Continue Metformin 500 mg BID - Rx refilled (2) Mixed hyperlipidemia: Code(s): E78.2 - Mixed hyperlipidemia Category: Medical Plan: Results of his labs done a couple of months ago reviewed and discussed with patient Reinforced low cholesterol diet Will recheck his labs and fasting lipids in 3 months for follow up (3) ILD (interstitial lung disease): Comment: History of smoking cigars. CT scan changes of chronic interstitial lung disease/ most likely pulmonary fibrosis. The patient is almost asymptomatic except for mild intermittent cough. Code(s): J84.9 - Interstitial pulmonary disease, unspecified Category: Medical Plan: Patient still has ARORA at times but symptoms have been mostly mild Follow up with pulmonary (Dr. Rojas) as scheduled (4) Allergic rhinitis: Comment: Chronic nasal congestion and postnasal discharge, secondary to allergic rhinitis,. controlled Code(s): J30.9 - Allergic rhinitis, unspecified Category: Medical Qualifiers: Allergic rhinitis trigger: unspecified Allergic rhinitis seasonality: unspecified Qualified Code(s): J30.9 - Allergic rhinitis, unspecified Plan: Continue Cetirizine 10 mg QD PRN and Fluticasone 50 mcg nasal spray QD PRN He takes Loratadine 10 mg QD PRN if his symptoms are milder (5) Hypotestosteronism: Code(s): E34.9 - Endocrine disorder, unspecified Category: Medical Plan: Patient's testosterone level was still low at 115 ng/dl when it was last checked in March 2024 Continue Testosterone injections 200 mg every 4 weeks Will continue to monitor his serum testosterone level regularly - this will be rechecked again with his other routine labs in 3 months (6) Vitamin D deficiency: Code(s): E55.9 - Vitamin D deficiency, unspecified Category: Medical Plan: Continue Vitamin D3 1000 units QD (7) Right hip pain: Code(s): M25.551 - Pain in right hip Category: Medical Plan: X-rays of the hips done back on 07/08/2022 revealed (+) small ossicle adjacent to the superior lateral hip joint similar to previous exam in March 2020 Repeat x-rays of the right hip done earlier this year came back normal Patient has been referred to orthopedics for further evaluation and management of his increasing right hip pains and he was instead sent for physiatric evaluation of possible lumbar spine pathology contributing to his right hip symptoms but it does not look like he was seen for this Per his request, we also tried sending him for an MRI of the right hip a couple of months ago but this was denied by his insurance Will now try referring him first to physical therapy for further evaluation and management (8) Renal calculi: Comment: S/P ESWL last year Code(s): N20.0 - Calculus of kidney Category: Medical Plan: Patient has been asymptomatic lately with regards to this Follow up with urology as scheduled (9) Anxiety: Code(s): F41.9 - Anxiety disorder, unspecified Category: Medical Plan: Continue Clonazepam 1 mg 1 to 2 tablets BID PRN We tried starting him on Sertraline 50 mg Q AM previously but patient did not feel that he needed to continue on it and self-discontinued the medication shortly afterwards Plan Per request, flu vaccine given to patient today Follow up in 3 months Orders: Orders PT Evaluation and Treatment Today M25.551 - Pain in right hip Influenza [id number] Immunization Today Z23 - Encounter for immunization Comprehensive [place]. Panel Fast 3 Months E78.00 - Pure hypercholesterolemia, unspecified Complete Blood Count Auto Diff 3 Months D64.9 - Anemia, unspecified Microalbumin, Random (w Creat) 3 Months E11.9 - Type 2 diabetes mellitus without complications Lipid Panel 3 Months E78.00 - Pure hypercholesterolemia, unspecified Hemoglobin A1c 3 Months E11.9 - Type 2 diabetes mellitus without complications Testosterone, Free/Total 3 Months R79.89 - Other specified abnormal findings of blood chemistry TSH reflex Free T4 3 Months E78.00 - Pure hypercholesterolemia, unspecified UA CC w/rflx Micro + Cult 3 Months R30.0 - Dysuria Vitamin D 25-OH Total 3 Months E55.9 - Vitamin D deficiency, unspecified Medications: Refilled metformin 500 mg PO BID 180 tabs 3RF 3 months E11.9 - Type 2 diabetes mellitus without complications
--- OUTSIDE RECORDS SUMMARY | 2025-01-18 18:23 | XMS_ITS | Clinical Summary ---
Author Organization [employer] Address [address] [place] [address] Care Team Providers Care Leading Firefighter Name Role Phone Unavailable Primary Care Provider [...] age to complete this topic Insurance [facility] ST[facility]
--- OUTSIDE RECORDS SUMMARY | 2025-01-18 18:23 | XMS_ITS | Patient Health Record ---
Author Organization [facility] Address [address] [place] [address] Care Team Providers Care Golf Shoe Spike Assembler Name Role Phone Rainer Amos MDneth Primary Care Provider Unava Onesimo Dick Unavailable [phone] Allergies Allergen (clinical drug ingredient) Drug/Non Drug Allergy documented on EMR Reaction Allergy Type Onset Date Status IVP dye (uncoded) Unknown Allergy Ac tive ibuprofen Ibuprofen Unknown Drug Allergy Active penicillamine Penicillamine Unknown Drug Allergy Active Sulfacet-R Unknown Drug Allergy Active aspirin Aspirin Unknown Drug Allergy Active Gadolinium Unknown Drug Allergy Active Iodine Unknown Drug Allergy Active oxycodone Oxycodone Unknown Drug Allergy Active morphine Morphine Unknown Drug Allergy Active Reason For Referral No Information Medications Medication SIG (Take, Route, Frequency, Duration) Notes Start Date End Date Status Fluticasone Furoate 27.5 MCG/SPRAY Suspension 1 spray in each nostril Nasally Once a day; Duration: 30 day(s) Active Lancets - Miscellaneous as directed Active Testosterone Cypionate 200 MG/ML Oil 1 ml Intramuscular Active Metformin & Diet Manage Prod 500 MG Miscellaneous as directed Orally Active Cetirizine HCl 10 MG Tablet 1 tablet Ora lly Once a day; Duration: 30 day(s) Active Cholecalciferol 25 MCG (1000 UT) Capsule 1 capsule Orally Once a day; Duration: 30 day(s) Active MiraLax (colon prep) 17 GM/SCOOP Powder 1 bottle 238 Gms mixed with Gatorade or Crystal Light Orally begin at 5:00 p.m. the day before the procedure; Duration: 1 day 11/22/2020 Active Loratadine 10 MG/10ML Syrup 10 ml Orally Once a day; Duration: 30 day(s) Active clonazePAM 1 MG Tablet 1 tablet Orally O nce a day Active Dulcolax (colon prep) 5 MG Tablet Delayed Release take at 3:00 p.m and 7:00p.m. Orally two tablets twice a day for one day; Duration: 1 day 11/22/2020 Active Immunizations Vaccine Route Administration Date Status Comme nts Influenza Unknown 11/22/2020 Administered Social History Tobacco Use: Social History Observation Description Date Details (start date - stop date) Light tobacco s moker NA - NA Social History Drugs/Alcohol: Social Info Question Answer Notes Alcohol Screen Did you have a drink containing alcohol in the past year? No Points 0 Interpretation Negative Tobacco Use: Social Info Question Answer Notes Tobacco Use/Smoking Patient is a light tobacco smoker Additional Details Category Social Info Options Details Miscellaneous: Marital status: Occupation: disabled Section Notes: Occ. cigar; no alcohol Problems Problem Type SNOMED Code ICD Code Onset Dates Problem Status W/U Status Risk Notes Problem Screening for malignant neoplasm of colon (937895032) Encounter for screening for malignant neoplasm of colon (Z12.11) Active confirmed Problem Rectal pain (27258405) Rectal pain (K62.89) Active confirmed Problem Diverticulosis of sigmoid colon (992991751) Diverticulosis of sigmoid colon (K57.30) Active confirmed Problem Pelvic and perineal pain (074325944) Abdominal pain, suprapubic (R10.2) Active confirmed Plan Of Treatment Future Test Test Name Order Date COLONOSCOPY 11/22/2020 Insurance Providers Payer Name Payer Address Payer Phone Subscriber Number Group Number Insured Name Patient Relationship to Insured Coverage Start Date Coverage End Date [facility] [address] [address] [place], [place] [id number] NELLI CERNA Self - patient is the insured [place] [address] [place] [address] [phone] [id number] NELLI CERNA Self - patient is the insured Medical (General) History Medical History History ICD Code Colonoscopy 04-11-2010--[place] except for hyperplastic polyps, diverticulosis, and internal and external hemorrhoids Hearing loss Arthirits Anxiety Hyperlipidemia NIDDM Allergies Vitamin D deficiency Denies DE,CVA,Lung disease,renal disease Low Testosterone levels IBS Surgical History Surgery Date(Month/Year) Undescended testicle Cholecystectomy
--- OUTSIDE RECORDS SUMMARY | 2025-01-18 18:23 | XMS_ITS | Encounter Summary ---
Author Organization [employer] Address [address] [place] [address] Care Team Providers Care Cook Pie Name Role Phone Unavailable Primary Care Provider [...]
== END 2025-01-18 15:43 | disposition home or self-care (01) ==
LOC: HO.HMCH 14:31
PROVIDERS: PCP Internal Medicine; Visit Provider Internal Medicine
DX: E11.9 Type 2 diabetes mellitus without complications (principal); E78.2 Mixed hyperlipidemia; J84.9 Interstitial pulmonary disease, unspecified; J30.9 Allergic rhinitis, unspecified; E34.9 Endocrine disorder, unspecified; E55.9 Vitamin D deficiency, unspecified; M25.551 Pain in right hip; N20.0 Calculus of kidney; F41.9 Anxiety disorder, unspecified; Z23 Encounter for immunization

== ENCOUNTER → 2025-01-18 14:30 | Outpatient (BNVA) | payer OTHER, SELFPAY | PROVIDERS: PCP Internal Medicine; Visit Provider Internal Medicine | DX: E11.9 Type 2 diabetes mellitus without complications (principal); E78.2 Mixed hyperlipidemia; J84.9 Interstitial pulmonary disease, unspecified; Z23 Encounter for immunization; Z87.891 Personal history of nicotine dependence; J30.9 Allergic rhinitis, unspecified; E34.9 Endocrine disorder, unspecified; E55.9 Vitamin D deficiency, unspecified; N20.0 Calculus of kidney; F41.9 Anxiety disorder, unspecified; Z13.31 Encounter for screening for depression; Z13.39 Encounter for screening examination for other mental health and behavioral disorders | CPT/HCPCS: 90471; 90656; 96127; 99212 ==

== ENCOUNTER 2025-01-24 16:05 | Outpatient (AMB) | payer OTHER, SELFPAY ==
--- NOTE | 2025-01-24 16:05 | A.OFFVIS_ITS ---
Intake Visit Reasons: 10 week PSA/ US follow up Intake Note: Patient presents today via telehealth for a 10w PSA/US follow up * 11/23 Total PSA:0.31 Urology Medication:Testosterone Blood Thinner:None Antibiotic Allergies:PCN Allergies Iodinated Contrast Media (IV Dye, Iodine Containing) Allergy (Severe, Verified 01/24/25 16:05) ANAPHYLAXIS aspirin (Aspirin) Allergy (Mild, Verified 01/24/25 16:05) ITCHING ibuprofen (Ibuprofen) Allergy (Mild, Verified 01/24/25 16:05) NAUSEA Penicillins Allergy (Mild, Verified 01/24/25 16:05) ITCHING/SWELLING Gadolinium-Containing Contrast Medi (GADOLINIUM-CONTAINING CONTRAST) Allergy (Unknown, Verified 01/24/25 16:05) UNKNOWN iodine (IODINE) Allergy (Unknown, Verified 01/24/25 16:05) UNKNOWN morphine (MORPHINE) Allergy (Unknown, Verified 01/24/25 16:05) TACHYCARDIA oxycodone (From PERCOCET) Allergy (Unknown, Verified 01/24/25 16:05) N/V,H/A Sulfa (Sulfonamide Antibiotics) (SULFA (SULFONAMIDE ANTIBIOTICS)) Allergy (Unknown, Verified 01/24/25 16:05) UNKNOWN HPI Comments Details: 01/24/25--Gopi is status post dilation of fossa navicularis performed 09/28/2024 he receives testosterone replacement through his primary care physician's office presenting as a telehealth follow-up review PSA screening 11/23/2024 PSA was 0.31. History of Present Illness The patient is a 64 year old individual presenting for a telehealth follow-up. The patient is status post dilation of the fossa navicularis, performed on September 28, 2024. Instructions on self-catheterization was provided, but the patient found it too painful and therefore has not been doing it. Despite not using the catheter, the patient reports the urinary meatus is still open and that the patient has a good, strong, and more fluent urine flow since the procedure. The patient receives testosterone replacement therapy from their primary care physician. A PSA screening on 11/23/2024 was 0.31, which is within the normal range. Results - Labs - PSA (11/23/2024): 0.31. Plan 1. Urethral Stricture - The patient is doing well post-dilation of the fossa navicularis, with reports of improved urine flow. - Self-catheterization was not tolerated due to pain, but the meatus has remaine d open. - A follow-up appointment in the office is scheduled for approximately six months to check the urine and assess the patient's condition. 2. Prostate Cancer Screening - The patient's recent PSA level from 11/23/2024 was 0.31, which is within the normal range of 0 to 4.0. 11/12/2024--Gopi is status post dilation of fossa navicularis. procedure was performed on 09/28/2024 urinalysis today is negative History of Present Illness The patient is a 63-year-old male presenting with follow-up on the status post dilation of fossa navicularis and prostate health monitoring. The patient underwent a dilation of fossa navicularis on 09/28/24, and the procedure was successful with no immediate complications reported. Post- procedure, the patient reported improved urination, although there was initial discomfort during the first two weeks of dilation exercises. The patient's spouse assisted with the dilation exercises but ceased due to discomfort and concern about causing harm. The patient is also on testosterone replacement therapy, managed by his primary care physician, which is relevant to his overall health management. Regarding prostate health, the patient has a family history of prostate cancer, with his father having succumbed to the disease. The patient has not had a recent PSA test, prompting the decision to order one for monitoring purposes. Results - Urinalysis: Negative Plan 1. Status Post Dilation Of -[id number] - - - - fossa navicularis - Continue monitoring the surgical site for any signs of complications. - Encourage continuation of dilation exercises as tolerated to prevent closure. 2. Prostate Health Monitoring - Order PSA test to assess prostate health. - Schedule a prostate ultrasound to evaluate prostate size. 09/24/24 History of Present Illness - The patient is a 63-year-old male presenting with urethral stricture and low testosterone levels. - The patient has been receiving testosterone injections due to low testo sterone levels. 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 - The remaining testicle is small, supported by testosterone injections. - The patient is experiencing a urethral stricture with a progressively closing urethral meatus over the past two to three months. - Topical creams previously used were ineffective in managing the condition. Plan - Schedule urethral dilation and cystoscopy as an outpatient procedure to address the urethral stricture. - Prescribe Lotrisone cream for temporary relief of urethral stricture symptoms until the procedure is performed. [facility] Medical History Mixed hyperlipidemia Choking due to phlegm LEIA (obstructive sleep apnea) Snoring Retrognathia Somnolence, daytime ILD (interstitial lung disease) Abnormal chest xray Chest pain Hx of flexible sigmoidoscopy IBS (irritable bowel syndrome) Arthritis Cigar smoker Anxiety Vitamin D deficiency Renal calculi Allergic rhinitis Diabetes mellitus Right hip pain Right shoulder pain Hypotestosteronism Swelling of left hand Left hand pain Surgical History Hx of cystoscopy Hx laparoscopic cholecystectomy History of testicular surgery History of colonoscopy History of lithotripsy Family History Father Prostate cancer Mother Hypertension Hypercholesterolemia Brother Hypertension Diabetes Other Hypotestosteronism Social History Housing: Apartment Are you a primary inspector health care facilities to a significant other at home: No Do you presently have visiting nurse or other home services: No Alcohol intake: never Patient Tobacco Use Status: Former Tobacco user Tobacco use type: Cigar Cigarettes Per Day: 3 Years Smoked: pt states quit 01/2022 e-Cigarette/Vaping Use: Never Used Second Hand Smoke Exposure: Yes Advance Directives Date on File: 11/07/14 service: No Current occupational status: disabled Cognitive needs: No Hearing needs: No Vision needs: Yes Review of Systems Const All systems reviewed & are unremarkable except as noted in HPI and below Reports no additional complaints Eyes Reports no additional complaints ENT Reports no additional complaints Card Reports no additional complaints Resp Reports no additional complaints GI Reports no additional complaints Reports as per HPI Musc Reports no additional complaints Skin/Breast Reports system reviewed and no additional complaints, except as documented Neuro Reports no additional complaints Psych Reports no additional complaints Endo Reports no additional complaints Andres/Lymph Reports no additional complaints Aller/Immun Reports no additional complaints Telehealth Telehealth Telehealth Platform: Telephone Location of provider rendering services: practice address Location of patient: address on file Patient Identification confirmed using: Name, : Yes Telehealth method: voice only Patient verbally consented to treatment: Yes Patient verbally consented to billing insurance company: Yes Patient informed of any privacy concerns related to visit: Yes Minutes spent on Phone/Video with Pt.: 14 Assessment & Plan Assessment & Plan (1) Low serum testosterone level: Code(s): R79.89 - Other specified abnormal findings of blood chemistry Category: Medical (2) Urethral meatal stenosis: Code(s): N35.919 - Unspecified urethral stricture, male, unspecified site Category: Medical Plan Plan 1. Urethral Stricture - The patient is doing well post-dilation of the fossa navicularis, with reports of improved urine flow. - Self-catheterization was not tolerated due to pain, but the meatus has remained open. - A follow-up appointment in the office is scheduled for approximately six months to check the urine and assess the patient's condition. 2. Prostate Cancer Screening - The patient's recent PSA level from 11/23/2024 was 0.31, which is within the normal range of 0 to 4.0. Patient Instructions: The patient had an opportunity to ask questions regarding treatment plan. The patient expressed understanding and agreement with the above treatment plan. The patient is aware they should contact our office by phone for worsening of their current condition or the appearance of new symptoms. Compliance is encouraged with any medications and followup testing that is ordered. It is a privilege to be allowed the opportunity to participate in the urologic care of your patient. If you have any questions or concerns regarding treatment for the above conditions please do not hesitate to contact me. The office telephone contact is [phone]. This note is constructed in part using voice recognition software. While every effort has been made to ensure accuracy furniture assembler errors may have been included. Yours sincerely, Mony Schmitt MD Scribe Plan - Not visible on output: Patient was informed and verbally consented to the use of an ambient scribe for clinic note documentation during this visit. Coding Level of Care Code Tele Est Pt Level 3 (94491) Diagnoses Low serum testosterone level R79.89 Urethral meatal stenosis N35.919
--- OUTSIDE RECORDS SUMMARY | 2025-01-24 18:39 | XMS_ITS | Encounter Summary ---
Author Organization [employer] Address [address] [place] [address] Care Team Providers Care Lug Breaker And Wire Puller Name Role Phone Unavailable Primary Care Provider [...]
--- OUTSIDE RECORDS SUMMARY | 2025-01-24 18:39 | XMS_ITS | Clinical Summary ---
Author Organization [employer] Address [address] [place] [address] Care Team Providers Care Board Certified Arts Therapist Name Role Phone Unavailable Primary Care Provider [...] patient's age to complete this topic Insurance [facility] STANDARD
== END 2025-01-24 16:41 | disposition home or self-care (01) ==
LOC: HO.HUSH 16:05
PROVIDERS: PCP Internal Medicine; Visit Provider Urology
DX: R79.89 Other specified abnormal findings of blood chemistry (principal); N35.919 Unspecified urethral stricture, male, unspecified site
CPT/HCPCS: 99213

== ENCOUNTER 2025-02-07 16:07 | Outpatient (AMB) | payer OTHER, SELFPAY ==
--- NOTE | 2025-02-07 16:25 | A.OFFVIS_ITS ---
Intake Visit Reasons: vaccine Allergies Iodinated Contrast Media (IV Dye, Iodine Containing) Allergy (Severe, Verified 01/24/25 16:05) ANAPHYLAXIS aspirin (Aspirin) Allergy (Mild, Verified 01/24/25 16:05) ITCHING ibuprofen (Ibuprofen) Allergy (Mild, Verified 01/24/25 16:05) NAUSEA Penicillins Allergy (Mild, Verified 01/24/25 16:05) ITCHING/SWELLING Gadolinium-Containing Contrast Medi (GADOLINIUM-CONTAINING CONTRAST) Allergy (Unknown, Verified 01/24/25 16:05) UNKNOWN iodine (IODINE) Allergy (Unknown, Verified 01/24/25 16:05) UNKNOWN morphine (MORPHINE) Allergy (Unknown, Verified 01/24/25 16:05) TACHYCARDIA oxycodone (From PERCOCET) Allergy (Unknown, Verified 01/24/25 16:05) N/V,H/A Sulfa (Sulfonamide Antibiotics) (SULFA (SULFONAMIDE ANTIBIOTICS)) Allergy (Unknown, Verified 01/24/25 16:05) UNKNOWN [facility] Medical History Mixed hyperlipidemia Choking due to phlegm LEIA (obstructive sleep apnea) Snoring Retrognathia Somnolence, daytime ILD (interstitial lung disease) Abnormal chest xray Chest pain Hx of flexible sigmoidoscopy IBS (irritable bowel syndrome) Arthritis Cigar smoker Anxiety Vitamin D deficiency Renal calculi Allergic rhinitis Diabetes mellitus Right hip pain Right shoulder pain Hypotestosteronism Swelling of left hand Left hand pain Surgical History Hx of cystoscopy Hx laparoscopic cholecystectomy History of testicular surgery History of colonoscopy History of lithotripsy Family History Father Prostate cancer Mother Hypertension Hypercholesterolemia Brother Hypertension Diabetes Other Hypotestosteronism Social History Housing: Apartment Are you a primary respiratory care assistant to a significant other at home: No Do you presently have visiting nurse or other home services: No Alcohol intake: never Patient Tobacco Use Status: Former Tobacco user Tobacco use type: Cigar Cigarettes Per Day: 3 Years Smoked: pt states quit 01/2022 e-Cigarette/Vaping Use: Never Used Second Hand Smoke Exposure: Yes Advance Directives Date on File: 11/07/14 service: No Current occupational status: disabled Cognitive needs: No Hearing needs: No Vision needs: Yes Assessment & Plan Assessment & Plan Orders: Orders AMB Testosterone Injection Patient Supplied N/C Today E34.9 - Endocrine disorder, unspecified, R79.89 - Other specified abnormal findings of blood chemistry Medications: New testosterone cypionate 200 mg IM ONCE 1 ea 0RF E34.9 - Endocrine disorder, unspecified, R79.89 - Other specified abnormal findings of blood chemistry Coding
--- NOTE | 2025-02-07 16:26 | AM.OFFVISNUR ---
Intake Visit Reasons: vaccine Allergies Iodinated Contrast Media (IV Dye, Iodine Containing) Allergy (Severe, Verified 01/24/25 16:05) ANAPHYLAXIS aspirin (Aspirin) Allergy (Mild, Verified 01/24/25 16:05) ITCHING ibuprofen (Ibuprofen) Allergy (Mild, Verified 01/24/25 16:05) NAUSEA Penicillins Allergy (Mild, Verified 01/24/25 16:05) ITCHING/SWELLING Gadolinium-Containing Contrast Medi (GADOLINIUM-CONTAINING CONTRAST) Allergy (Unknown, Verified 01/24/25 16:05) UNKNOWN iodine (IODINE) Allergy (Unknown, Verified 01/24/25 16:05) UNKNOWN morphine (MORPHINE) Allergy (Unknown, Verified 01/24/25 16:05) TACHYCARDIA oxycodone (From PERCOCET) Allergy (Unknown, Verified 01/24/25 16:05) N/V,H/A Sulfa (Sulfonamide Antibiotics) (SULFA (SULFONAMIDE ANTIBIOTICS)) Allergy (Unknown, Verified 01/24/25 16:05) UNKNOWN Office Meds testosterone cypionate 200 mg/mL intramuscular kit Performing Provider: Madi Amos MD [facility] Administered by: Hortencia Og LPN on 02/07/25 16:26 Dose Route Admin Location Dispensed Lot Number Expiration Date [facility] Solids Control Technician 200 mg IM right buttock 1 ea [id number] 04/23/27 6188-2108-18 Total Dispensed Waste 1 ea 0 % Assessment & Plan Assessment & Plan Orders: Orders AMB Testosterone Injection Patient Supplied N/C Today E34.9 - Endocrine disorder, unspecified, R79.89 - Other specified abnormal findings of blood chemistry Coding
--- OUTSIDE RECORDS SUMMARY | 2025-02-07 22:26 | XMS_ITS | Encounter Summary ---
Author Organization [employer] Address [address] [place] [address] Care Team Providers Care Precision Farming Specialist Name Role Phone Unavailable Primary Care Provider [...]
--- OUTSIDE RECORDS SUMMARY | 2025-02-07 22:26 | XMS_ITS | Patient Health Record ---
Author Organization [facility] Address [address] [place] [address] Care Team Providers Care Pusher Operator Name Role Phone Rainer Amos MDneth Primary Care Provider Unava Onesimo Dick Unavailable [phone] Allergies Allergen (clinical drug ingredient) Drug/Non Drug [...] Problem Status W/U Status Risk Notes Problem Information temporarily unavailable Encounter for screening for malignant neoplasm of colon (Z12.11) Active confirmed Problem Information temporarily unavailable Rectal pain (K62.89) Active confirmed Problem Information temporarily unavailable Diverticulosis of sigmoid colon (K57.30) Active confirmed Problem Information temporarily unavailable Abdominal pain, suprapubic (R10.2) Active confirmed Plan Of Treatment Future Test Test Name Order Date COLONOSCOPY 11/22/2020 Insurance Providers Payer Name Payer Address Payer Phone Subscriber Number Group Number Insured Name Patient Relationship to Insured Coverage Start Date Coverage End Date [facility] [address] [address] [place], [place] [id number] NELLI CERNA Self - patient is the insured [place] [address] [place] [address] [id number] CERNANELLI QIU Self - patient is the insured Medical (General) History Medical History History ICD Code Colonoscopy 04-11-2010--[place] except for hyperplastic polyps, diverticulosis, and internal and external hemorrhoids Hearing loss Arthirits Anxiety Hyperlipidemia NIDDM Allergies Vitamin D deficiency Denies [place],CVA,Lung disease,renal disease Low Testosterone levels IBS Surgical History Surgery Date(Month/Year) Undescended testicle Cholecystectomy
--- OUTSIDE RECORDS SUMMARY | 2025-02-07 22:26 | XMS_ITS | Clinical Summary ---
Author Organization [employer] Address [address] [facility] [facility] [facility] [address] [place] [address] Care Team Providers Care Electric Stop Installer Name Role Phone Unavailable Primary Care Provider [...] patient's age to complete this topic Insurance [facility] STANDARD
== END 2025-02-07 16:26 | disposition home or self-care (01) ==
LOC: HO.HMCH 16:08
PROVIDERS: PCP Internal Medicine; Visit Provider Internal Medicine
DX: E34.9 Endocrine disorder, unspecified (principal); R79.89 Other specified abnormal findings of blood chemistry

== ENCOUNTER → 2025-02-07 16:07 | Outpatient (BNVA) | payer OTHER, SELFPAY | PROVIDERS: PCP Internal Medicine; Visit Provider Internal Medicine | DX: Z53.9 Procedure and treatment not carried out, unspecified reason (principal) | CPT/HCPCS: 96372 ==